=== PATIENT | male | born 1945 | race Caucasian/White ===

== ENCOUNTER 2016-11-21 11:57 | Inpatient (IN) | payer MEDICARE ==
[2016-11-21 13:42] LABS: Glucose,Whole Blood 113 mg/dL (75-99)
[2016-11-21] MEDS ORDERED: IPRATROPIUM 0.5 MG/2.5 ML NEBU INHALATION PRN (15:32)
[2016-11-21] MEDS: IPRATROPIUM 0.5 MG/2.5 ML NEBU INHALATION PRN ×2 (15:42→19:31)
[2016-11-21] MEDS: LEVALBUTEROL NEB (CONC) 1.25 MG/0.5 ML AMP INHALATION SCH ×5 (15:42→20:34)
[2016-11-21] MEDS: AZITHROMYCIN 500 MG TAB PO SCH (16:41)
[2016-11-21] MEDS: SODIUM CHLORIDE 0.9% 1,000 ML IV SCH (16:41)
[2016-11-21] MEDS: CHLORPHEN-HYDROcod 8-10mg/5ml 5 ML ORAL.SYRG PO SCH (16:42)
[2016-11-21] MEDS: BENZONATATE 100 MG CAP PO SCH ×2 (16:42→21:28)
[2016-11-21 16:55] LABS: ALT 58 U/L (21-72); AST 27 U/L (17-59); Alkaline Phosphatase 41 U/L (38-126); Anion Gap 14 mmol/L; Blood Urea Nitrogen 39 mg/dL (9-20); Calcium 9.2 mg/dL (8.4-10.2); Carbon Dioxide 23 mmol/L (22-30); Chloride 104 mmol/L (98-107); Glucose 269 mg/dL (74-99); Non-African American GFR(MDRD) >60 (>60 ml/min/1.73 sqM); Sodium 141 mmol/L (137-145); Total Bilirubin 0.4 mg/dL (0.2-1.3); Total Protein 5.8 g/dL (6.3-8.2)
[2016-11-21 16:57] LABS: Basophils # (A) 0.1 k/uL (0-0.2); Basophils % (A) 1 %; CHCM 31.6; Eosinophils % (A) 0 %; HCT 39.8 % (39.0-53.0); HDW 2.11; HGB 12.3 gm/dL (13.0-17.5); Luc # (Auto) 0.04; Luc % (Auto) 0; Lymphocytes # (A) 0.5 k/uL (1.0-4.8); Lymphocytes % (A) 4 %; MCH 29.4 pg (25.0-35.0); MCHC 30.8 g/dL (31.0-37.0); MCV 95.4 fL (80.0-100.0); Mean Platelet Volume 7.8; Monocytes # (A) 0.4 k/uL (0-1.0); Monocytes % (A) 3 %; Neutrophils # (A) 11.6 k/uL (1.3-7.7); Neutrophils % (A) 91 %; RBC 4.17 m/uL (4.30-5.90); RDW 12.9 % (11.5-15.5); WBC 12.8 k/uL (3.8-10.6); WBC (Perox) 13.62
[2016-11-21 17:06] LABS: Glucose,Whole Blood 236 mg/dL (75-99)
--- NOTE | 2016-11-21 17:11 | XR ---
EXAMINATION TYPE: XR chest 2V DATE OF EXAM: 11/21/2016 4:52 PM COMPARISON: 11/13/2016 HISTORY: Short of breath TECHNIQUE: Frontal and lateral views of the chest are obtained. FINDINGS: Heart and mediastinum are shifted to the right side. There is blunting of right costophren ic angle. There is patchy linear density in the right lung. There is a neurostimulator in the mid tho racic spine. Left lung is clear. There is no heart failure. Bony thorax is intact. IMPRESSION: There is patchy atelectasis and volume loss in the right hemithorax without significant change compared to last exam. Normal heart. No heart failure.
[2016-11-21] MEDS: INSULIN LISPRO (humaLOG) 300 UNIT/3 ML VIAL SQ SCH ×2 (17:37→21:51)
[2016-11-21] MEDS: methylPREDNISolone SOD SUCCI 125 MG/2 ML VIAL IV SCH (17:40)
[2016-11-21] MEDS ORDERED: TEMAZEPAM 30 MG CAP PO PRN (18:03)
[2016-11-21] MEDS: HYDROcodone/APAP 10-325MG 1 EACH TAB PO PRN ×2 (18:27→21:51)
[2016-11-21] MEDS: LORATADINE 10 MG TAB PO SCH (18:55)
[2016-11-21 19:00] LABS: Appearance,Urine Clear (Clear); Bilirubin,Urine Negative (Negative); Glucose,Urine (UA) 4+ (Negative); Ketones,Urine Negative (Negative); Leukocyte Esterase,Urine Negative (Negative); Nitrite,Urine Negative (Negative); Protein,Urine Trace (Negative); Specific Gravity,Urine 1.012 (1.001-1.035); UA Billing (MACRO vs. MICRO) CHEM; Urobilinogen,Urine <2.0 mg/dL (<2.0)
--- NOTE | 2016-11-21 19:17 | HP ---
DATE OF ADMISSION: Patient is a direct admit from Dr. Dee's office for COPD. Patient clinically appears to be in moderate respiratory distress at rest. Patient was having shortness of breath going on for about 3 weeks and patient was treated outpatient with azithromycin and oral steroids without any significant improvement. Patient was subsequently admitted because of his continued shortness of breath. No improvement in COPD. Patient is occasionally bringing up brownish phlegm. Chest x-ray did not show any clear-cut pneumonic process, but patient is being treated like pneumonia with ceftriaxone and azithromycin. There is some patchy atelectasis in right hemithorax. Patient denied any fevers at home. Patient does have some minimal leukocytosis of 12,800; can be from the systemic steroids. Denied any hemoptysis. Patient's FEV1 is around 47% of predicted, consistent with severe COPD, and patient has history of squamous cell lung carcinoma with radiation therapy in the past. REVIEW OF SYSTEMS: CONSTITUTIONAL: No fever, no malaise, no fatigue. HEENT: No recent visual problems or hearing problems. Denied any sore throat. CARDIOVASCULAR: No chest pain, orthopnea, PND, no palpitations, no syncope. PULMONARY: As described in HPI. GASTROINTESTINAL: No diarrhea, no nausea, no vomiting, no abdominal pain. Normoactive bowel sounds. NEUROLOGICAL: No headaches, no weakness, no numbness. HEMATOLOGICAL: Denies any bleeding or petechiae. GENITOURINARY: Denies any burning micturition, frequency, or urgency. MUSCULOSKELETAL/RHEUMATOLOGICAL: Denies any joint pain, swelling, or any muscle pain. ENDOCRINE: Denies any polyuria or polydipsia. The rest of the 14 point review of systems is negative. PAST MEDICAL HISTORY: 1. Lung cancer, as mentioned above, squamous cell. 2. COPD. 3. Diabetes mellitus. 4. Gastroesophageal reflux disease. 5. Hyperlipidemia. 6. Hypertension. 7. Osteoarthritis. 8. FEV1 47% of unpredicted. 9. Patient was born with a single kidney. 10. Patient had cardiac catheterization and stent placement surgery. 11. Tonsillectomy. 12. Bilateral knee replacement with pain stimulators in the buttock area. 13. Hernia repair. 14. Rotator cuff repair. 15. History of asbestos exposure. 16. Anxiety. 17. Depression. SOCIAL HISTORY: Former smoker; quit smoking years ago. Denied any alcohol abuse or any drug abuse. FAMILY HISTORY: Significant for cancer in family. HOME MEDICATIONS: 1. Alprazolam. 2. Albuterol. 3. Aspirin. 4. Azithromycin. 5. Docusate. 6. Ferrous sulfate. 7. Fexofenadine. 8. Fluticasone. 9. Solu-Medrol. 10. Lasix. 11. Hydrocodone/acetaminophen. 12. Lisinopril. 13. Metoclopramide. 14. Omeprazole. 15. Sertraline. 16. Simvastatin. 17. Temazepam. 18. Glipizide. PHYSICAL EXAMINATION: VITAL SIGNS: Temperature 97.0, pulse of 105, respiratory rate of 20. Blood pressure is 138/73. Saturating at 98% on 4 L of oxygen by nasal cannula. Patient is supposed to use 3 L; has been using 4 L because of his subjective shortness of breath. GENERAL: Patient appears to be clearly in moderate respiratory distress. Alert and oriented x3. HEENT: Pupils are round and equally reacting to light. EOMI. No scleral icterus. No conjunctival pallor. Normocephalic, atraumatic. No pharyngeal erythema. No thyromegaly. CARDIOVASCULAR: S1, S2 present. Tachycardic. No murmurs, rubs or gallops. PULMONARY: Significant expiratory wheezing with limited air entry into bilateral lung hinson. Rhonchorous breath sounds. ABDOMEN: Soft, nontender, nondistended, normoactive bowel sounds. No palpable organomegaly. MUSCULOSKELETAL: No joint swelling or deformity. EXTREMITIES: No cyanosis, clubbing, or pedal edema. NEUROLOGICAL: Gross neurological examination did not reveal any focal deficits. SKIN: No rashes. ASSESSMENT AND PLAN: 1. Acute on chronic obstructive pulmonary disease exacerbation. Patient does have severe COPD. Patient has acute on chronic hypercapnic respiratory failure secondary to COPD exacerbation. Continue with systemic steroids, inhalational treatments. Patient is being treated with ceftriaxone and azithromycin because of the severity of his symptoms, I believe, which will be continued at this point of time. Sputum cultures will be obtained. Blood cultures will be obtained. 2. Type 2 diabetes mellitus; uncontrolled blood sugars due to systemic steroids. Patient will be continued on sliding scale insulin. Patient will be resumed on his oral hypoglycemic agents as well. 3. Squamous cell carcinoma of the right lung which is in remission. 4. Diabetic peripheral neuropathy. 5. Hypertension. 6. Hyperlipidemia. 7. Chronic kidney disease, stage II, secondary to diabetic nephropathy. 8. Osteoarthritis. For above-mentioned chronic medical problems, I will go ahead and continue his home medications. Patient, although, appears to be in significant respiratory distress at rest in spite of 4 liters of oxygen, although saturations are 98% on 4 liters.
[2016-11-21] MEDS: FORMOTEROL FUMARATE 20 MCG/2 ML NEBU INHALATION SCH (19:31)
[2016-11-21] MEDS: BUDESONIDE 1 MG/2 ML NEBU INHALATION SCH (19:31)
[2016-11-21] MEDS ORDERED: NON-FORMULARY DRUG (Fluticasone/Salmeterol [Advair 500-50 Diskus] 1 PUFF) INHALATION SCH (20:00)
[2016-11-21 20:50] LABS: Glucose,Whole Blood 216 mg/dL (75-99)
[2016-11-21] MEDS ORDERED: LEVALBUTEROL NEB (CONC) 1.25 MG/0.5 ML AMP INHALATION PRN (21:27)
[2016-11-21] MEDS: DOCUSATE 100 MG CAP PO SCH (21:28)
[2016-11-21] MEDS: glipiZIDE 10 MG TAB PO SCH (21:51)
[2016-11-22] MEDS: methylPREDNISolone SOD SUCCI 125 MG/2 ML VIAL IV SCH ×4 (00:09→17:58)
[2016-11-22] MEDS: HYDROcodone/APAP 10-325MG 1 EACH TAB PO PRN ×5 (02:06→21:51)
[2016-11-22] MEDS: CHLORPHEN-HYDROcod 8-10mg/5ml 5 ML ORAL.SYRG PO SCH ×3 (04:48→21:51)
[2016-11-22] MEDS: SODIUM CHLORIDE 0.9% 1,000 ML IV SCH ×2 (06:11→17:59)
[2016-11-22] MEDS: FORMOTEROL FUMARATE 20 MCG/2 ML NEBU INHALATION SCH ×2 (07:35→19:00)
[2016-11-22] MEDS: BUDESONIDE 1 MG/2 ML NEBU INHALATION SCH ×2 (07:47→19:00)
[2016-11-22] MEDS: LEVALBUTEROL NEB (CONC) 1.25 MG/0.5 ML AMP INHALATION SCH ×4 (07:47→19:00)
[2016-11-22 07:50] LABS: Glucose,Whole Blood 153 mg/dL (75-99)
[2016-11-22 07:56] LABS: CH 29.8; HCT 37.3 % (39.0-53.0); HDW 2.08; MCH 29.9 pg (25.0-35.0); MCV 93.3 fL (80.0-100.0); Mean Platelet Volume 6.7; RDW 12.7 % (11.5-15.5)
[2016-11-22] MEDS: LORATADINE 10 MG TAB PO SCH (08:04)
[2016-11-22] MEDS: LISINOPRIL 20 MG TAB PO SCH (08:04)
[2016-11-22] MEDS: AZITHROMYCIN 500 MG TAB PO SCH (08:04)
[2016-11-22] MEDS: PANTOPRAZOLE 40 MG TABLET PO SCH (08:04)
[2016-11-22] MEDS: DOCUSATE 100 MG CAP PO SCH ×2 (08:04→20:57)
[2016-11-22] MEDS: BENZONATATE 100 MG CAP PO SCH ×3 (08:04→20:57)
[2016-11-22] MEDS: ATORVASTATIN 20 MG TAB PO SCH (08:04)
[2016-11-22] MEDS: SERTRALINE 50 MG TAB PO SCH (08:04)
[2016-11-22] MEDS: glipiZIDE 10 MG TAB PO SCH ×2 (08:04→20:57)
[2016-11-22] MEDS: ASPIRIN 81 MG CHEW PO SCH (08:04)
[2016-11-22] MEDS: ALPRAZolam 0.5 MG TAB PO PRN ×2 (08:04→17:58)
[2016-11-22] MEDS: INSULIN LISPRO (humaLOG) 300 UNIT/3 ML VIAL SQ SCH ×4 (08:06→22:02)
[2016-11-22 08:15] LABS: Anion Gap 13 mmol/L; Blood Urea Nitrogen 34 mg/dL (9-20); Carbon Dioxide 23 mmol/L (22-30); Chloride 106 mmol/L (98-107); Glucose 162 mg/dL (74-99); Non-African American GFR(MDRD) >60 (>60 ml/min/1.73 sqM); Potassium 4.8 mmol/L (3.5-5.1); Sodium 142 mmol/L (137-145)
[2016-11-22] MEDS: IPRATROPIUM 0.5 MG/2.5 ML NEBU INHALATION PRN ×3 (11:46→19:00)
[2016-11-22 12:06] LABS: Glucose,Whole Blood 258 mg/dL (75-99)
[2016-11-22 12:18] LABS: Hemoglobin A1C 7.1 % (4.2-6.1)
--- NOTE | 2016-11-22 14:24 | P.CNPUL ---
History of Present Illness Consult date: 11/22/16 Reason for consult: dyspnea, COPD History of present illness: 70-year-old male patient with advanced oxygen-dependent COPD was typically on 3 L of Oxymizer by nasal cannula. The patient has an FEV1 of 47% of predicted. The patient also has history of non-small cell lung cancer that was treated with radiation therapy to the chest. 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 A subsequent CAT scan of the chest from June 2015 had shown no evidence of any recurrence. Following that, the patient had another CAT scan of the chest on 10/21/2016 and there were stable postradiation changes in the right lung. There was also volume loss in the right lung. There was some limited interstitial fibrosis condition in the right lung. There is advanced and physical this changes bilaterally. No other abnormalities was noted. The patient is admitted currently for increased shortness of breath typical of an acute COPD exacerbation. He has increased cough chest tightness or wheezing. No chest pain. No fever or chills. No hemoptysis. No pleurisy. No swelling in the lower extremities. No change in mental status. His chest x-ray showing some patchy atelectatic changes and volume loss in the right hemithorax which is unchanged from previous chest x-rays and this is probably related to previous radiation therapy. The patient also has a neurostimulator in the mid thoracic spine and the left lung is essentially clear. Review of Systems Upon review of system was done positive findings are almost above history of present illness Past Medical History Past Medical History: Cancer, COPD, Diabetes Mellitus, GERD/Reflux, Hyperlipidemia, Hypertension, Musculoskeletal Disorder, Osteoarthritis (OA), Pneumonia Additional Past Medical History / Comment(s): Advanced oxygen-dependent COPD with an FEV1 of 47% of predicted, details discussed above, squamous cell carcinoma of the right lung status post chemo radiation therapy completed in February 2014, asbestos exposure, patient born with a single kidney, diabetes mellitus, hypertension, hyperlipidemia, degenerative arthritis, chronic back pain History of Any Multi-Drug Resistant Organisms: None Reported Past Surgical History: Adenoidectomy, Back Surgery, Heart Catheterization, Joint Replacement, Tonsillectomy Additional Past Surgical History / Comment(s): BILAT HIP REPLACEMENTS x4, PAIN STIMULATOR IMPLANT RT BUTTOCKS, LUNG BRONCHOSCOPIES/ BIOPSIES,, UMBILCAL HERNIA REPAIR.HIATAL HERNIA REPAR, RT ROTATOR CUFF REPAIR, EGD/COLONOSCOPY, LT INGUINAL HERNIA REPAIR, cataract removal with lens implants bilaterally, 2009?-normal (done at [facility]), lumbar laminectomy with fusion Past Anesthesia/Blood Transfusion Reactions: No Reported Reaction Additional Past Anesthesia/Blood Transfusion Reaction / Comment(s): NO TRANFUSIONS Past Psychological History: Anxiety, Depression Additional Psychological History / Comment(s): Patient states he takes xanax daily Smoking Status: Former smoker Past Alcohol Use History: None Reported Additional Past Alcohol Use History / Comment(s): [id number] Past Drug Use History: None Reported - Past Family History Brother(s) Family Medical History: Cancer Father Additional Family Medical History / Comment(s): AGER 85 SUICIDE(BLAMED SELF FOR WIFES ) Mother Additional Family Medical History / Comment(s): AT AGE 84 FRO MVA Medications and Allergies Home Medications Medication Instructions Recorded Confirmed Type Albuterol Sulfate [Ventolin HFA] 1 puff INHALATION RT-QID PRN 07/04/14 11/21/16 History Lisinopril 20 mg PO DAILY 07/04/14 11/21/16 History Omeprazole 40 mg PO DAILY 07/04/14 11/21/16 History Simvastatin 40 mg PO DAILY 07/04/14 11/21/16 History Aspirin 81 mg PO DAILY 08/09/14 11/21/16 History HYDROcodone/APAP 10-325MG [[place] 1 tab PO Q4H PRN 08/09/14 11/21/16 History 10-325] Fluticasone/Salmeterol [Advair 1 puff INHALATION RT-BID 09/07/14 11/21/16 History 500-50 Diskus] Temazepam 30 mg PO HS 09/07/14 11/21/16 History ALPRAZolam [Xanax] 0.5 mg PO Q8H PRN 05/14/15 11/21/16 History glipiZIDE [Glucotrol] 10 mg PO BID 05/14/15 11/21/16 History Ferrous Sulfate [Feosol] 325 mg PO DAILY 10/16/15 11/21/16 History Furosemide [Lasix] 20 mg PO DAILY 10/16/15 11/21/16 History Metoclopramide [Reglan] 10 mg PO BID 10/16/15 11/21/16 History Azithromycin [Zithromax] 250 mg PO MOWEFR 11/21/16 11/21/16 History Docusate [Colace] 100 mg PO BID 11/21/16 11/21/16 History Fexofenadine HCl [Gaye Allergy] 60 mg PO BID 11/21/16 11/21/16 History Sertraline [Zoloft] 50 mg PO DAILY 11/21/16 11/21/16 History Allergies Allergy/AdvReac Type Severity Reaction Status Date / Time adhesive Allergy Rash/Hives Verified 11/21/16 13:13 fish derived Allergy THROAT Verified 11/21/16 13:13 CLOSES, RASH, W/ FRESHWATER FISH Physical Exam Vitals: Vital Signs Temp Pulse Pulse Resp BP Pulse Ox 11/22/16 12:04 102 H 11/22/16 11:47 106 H 11/22/16 08:09 102 H 11/22/16 08:00 90 22 11/22/16 07:56 101 H 11/22/16 07:55 100 11/22/16 07:45 99 11/22/16 07:00 96.6 F L 90 21 105/56 95 11/21/16 23:00 96.9 F L 96 16 136/63 99 11/21/16 19:50 106 H 11/21/16 19:43 106 H 11/21/16 19:42 104 H 11/21/16 19:32 104 H 11/21/16 16:00 20 11/21/16 15:53 105 H 11/21/16 15:46 107 H 98 11/21/16 15:00 97 F L 102 H 16 138/73 96 Intake and Output 11/21/16 11/22/16 11/22/16 22:59 06:59 14:59 Other: Voiding Method Toilet # Voids 3 1 Head exam was generally normal. There was no scleral icterus or corneal arcus. Mucous membranes were moist.Neck was supple and without jugular venous distension, thyromegaly, or carotid bruits. Carotids were easily palpable bilaterally. There was no adenopathy. Lung sounds are diminished bilaterally along with that there is pronation of the expiratory phase of breathing and scattered expiratory wheezes throughout the lung hinson bilaterally.Cardiac exam revealed the PMI to be normally situated and sized. The rhythm was regular and no extrasystoles were noted during several minutes of auscultation. The first and second heart sounds were normal and physiologic splitting of the second heart sound was noted. There were no murmurs, rubs, clicks, or gallops.Abdominal exam revealed normal bowel sounds. The abdomen was soft, non- tender, and without masses, organomegaly, or appreciable enlargement of the abdominal aorta.Examination of the extremities revealed easily palpable radial, femoral and pedal pulses. There was no cyanosis, clubbing or edema. Results - Laboratory Findings CBC and BMP: 11/22/16 07:27 11/22/16 07:27 Abnormal lab findings: Abnormal Labs 11/21/16 11/21/16 11/21/16 12:38 16:16 16:16 WBC 12.8 H RBC 4.17 L Hgb 12.3 L Hct MCHC 30.8 L Neutrophils # 11.6 H Lymphocytes # 0.5 L BUN 39 H Glucose 269 H POC Glucose (mg/dL) 113 H Hemoglobin A1c Total Protein 5.8 L Urine Protein Urine Glucose (UA) 11/21/16 11/21/16 11/21/16 16:55 18:45 20:21 WBC RBC Hgb Hct MCHC Neutrophils # Lymphocytes # BUN Glucose POC Glucose (mg/dL) 236 H 216 H Hemoglobin A1c Total Protein Urine Protein Trace H Urine Glucose (UA) 4+ H 11/22/16 11/22/16 11/22/16 07:19 07:27 07:27 WBC 14.0 H RBC 4.00 L Hgb 12.0 L Hct 37.3 L MCHC Neutrophils # Lymphocytes # BUN Glucose POC Glucose (mg/dL) 153 H Hemoglobin A1c 7.1 H Total Protein Urine Protein Urine Glucose (UA) 11/22/16 11/22/16 07:27 11:55 WBC RBC Hgb Hct MCHC Neutrophils # Lymphocytes # BUN 34 H Glucose 162 H POC Glucose (mg/dL) 258 H Hemoglobin A1c Total Protein Urine Protein Urine Glucose (UA) - Diagnostic Findings Chest x-ray: image reviewed Assessment and Plan Plan: Assessment 1 acute COPD exacerbation with secondary shortness of breath 2 squamous cell carcinoma of the right lung status post chemoradiation therapy and the patient's disease is still in remission based on the most recent CAT scan of the chest that was done in September 2016 3 stage II chronic kidney disease 4 hypertension 5 hyperlipidemia 6 diabetes mellitus 7 peripheral neuropathy 8 chronic hypoxic respiratory failure and the patient has been on oxygen at 3 L per minute nasal cannula at baseline with an FEV1 of 47% 9 asbestos exposure 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 Agree on the current antibiotic coverage. Agree on the current bronchodilators. Put the patient on systemic steroids. Monitor the blood sugar and use insulin drip if needed for blood sugar control. We'll continue to follow. Most recent chest x-ray and a CAT scan of the chest was reviewed.
[2016-11-22 17:23] LABS: Glucose,Whole Blood 183 mg/dL (75-99)
[2016-11-22 21:04] LABS: Glucose,Whole Blood 291 mg/dL (75-99)
[2016-11-22] MEDS: ZOLPIDEM 5 MG TAB PO PRN (21:51)
[2016-11-22] MEDS ORDERED: INSULIN LISPRO (humaLOG) 300 UNIT/3 ML VIAL SQ ONE (22:03)
[2016-11-22] MEDS ORDERED: INSULIN DETEMIR 100 UNIT/ML 10 ML VIAL SQ ONE (22:04)
[2016-11-23] MEDS: methylPREDNISolone SOD SUCCI 125 MG/2 ML VIAL IV SCH ×5 (00:05→23:10)
[2016-11-23] MEDS: ALPRAZolam 0.5 MG TAB PO PRN ×2 (00:06→20:15)
[2016-11-23] MEDS: HYDROcodone/APAP 10-325MG 1 EACH TAB PO PRN ×4 (05:16→23:09)
[2016-11-23 07:26] LABS: Glucose,Whole Blood 189 mg/dL (75-99)
[2016-11-23] MEDS: SERTRALINE 50 MG TAB PO SCH (08:00)
[2016-11-23] MEDS: AZITHROMYCIN 500 MG TAB PO SCH (08:00)
[2016-11-23] MEDS: ASPIRIN 81 MG CHEW PO SCH (08:00)
[2016-11-23] MEDS: glipiZIDE 10 MG TAB PO SCH ×2 (08:00→20:15)
[2016-11-23] MEDS: LISINOPRIL 20 MG TAB PO SCH (08:00)
[2016-11-23] MEDS: BENZONATATE 100 MG CAP PO SCH ×3 (08:01→20:15)
[2016-11-23] MEDS: ATORVASTATIN 20 MG TAB PO SCH (08:01)
[2016-11-23] MEDS: INSULIN LISPRO (humaLOG) 300 UNIT/3 ML VIAL SQ SCH ×4 (08:01→21:37)
[2016-11-23] MEDS: PANTOPRAZOLE 40 MG TABLET PO SCH (08:01)
[2016-11-23] MEDS: LORATADINE 10 MG TAB PO SCH (08:01)
[2016-11-23] MEDS: CHLORPHEN-HYDROcod 8-10mg/5ml 5 ML ORAL.SYRG PO SCH ×2 (08:11→20:14)
--- NOTE | 2016-11-23 08:12 | PN ---
Patient is admitted for COPD exacerbation. Patient is feeling a little bit better I believe compared to yesterday, although patient states her shortness of breath is the same. REVIEW OF SYSTEMS: CARDIOVASCULAR: No chest pain, no orthopnea, no PND, no palpitations. PULMONARY: As described in HPI. GASTROINTESTINAL: No diarrhea, nausea or vomiting. No abdominal pain. Normoactive bowel sounds. NEUROLOGIC: No headaches, no weakness, no numbness. Medications were reviewed. PHYSICAL EXAMINATION: Temperature 97.6, pulse of 102, respiratory rate of 22, blood pressure is 105/56, saturating at 95% on 2-L of O2 nasal cannula. GENERAL: The patient is alert and oriented x3, not in any acute distress. Well developed, well nourished. HEENT: Pupils are round and equally reacting to light. EOMI. No scleral icterus. No conjunctival pallor. Normocephalic, atraumatic. No pharyngeal erythema. No thyromegaly. CARDIOVASCULAR: S1 and S2 present. No murmurs, rubs, or gallops. PULMONARY: Significant wheezing bilaterally. No crackles were appreciated. Wheezing appears to have improved compared to yesterday. ABDOMEN: Soft, nontender, nondistended, normoactive bowel sounds. No palpable organomegaly. MUSCULOSKELETAL: No joint swelling or deformity. EXTREMITIES: No cyanosis, clubbing, or pedal edema. NEUROLOGICAL: Gross neurological examination did not reveal any focal deficits. SKIN: No rashes. LABORATORY DATA: CBC and CMP abnormal for low WBC count of 14,000 and blood glucose is 162. ASSESSMENT AND PLAN: 1. Acute on chronic obstructive pulmonary disease exacerbation with acute on chronic hypercapnic respiratory failure secondary to chronic obstructive pulmonary disease exacerbation. 2. Tracheobronchitis. 3. Squamous cell carcinoma. 4. Diabetic peripheral neuropathy. 5. Hypertension. 6. Hyperlipidemia. 7. Chronic kidney disease stage II. 8. Osteoarthritis. Plan is to continue with systemic steroids and inhalational steroid treatment, continue with present regimen for diabetes mellitus and antibiotics.
[2016-11-23] MEDS: SODIUM CHLORIDE 0.9% 1,000 ML IV SCH ×5 (08:14→14:27)
[2016-11-23] MEDS: DOCUSATE 100 MG CAP PO SCH ×2 (08:16→21:37)
[2016-11-23] MEDS: BUDESONIDE 1 MG/2 ML NEBU INHALATION SCH ×2 (08:22→19:02)
[2016-11-23] MEDS: ALBUTEROL NEB (CONC) 2.5 MG/0.5 ML INHALATION SCH ×4 (08:22→19:02)
[2016-11-23] MEDS: FORMOTEROL FUMARATE 20 MCG/2 ML NEBU INHALATION SCH ×2 (08:23→19:02)
[2016-11-23 11:59] LABS: Glucose,Whole Blood 215 mg/dL (75-99)
[2016-11-23] MEDS ORDERED: IV VANCOMYCIN PER PHARMACY 1 EACH MISC MISCELLANE PRN (12:39)
[2016-11-23] MEDS ORDERED: SODIUM CHLORIDE 0.9% 1,000 ML IV ONE (12:53)
[2016-11-23] MEDS ORDERED: VANCOMYCIN 1,500 MG in SODIUM CHLORIDE 0.9% 250 ML IVPB ONE (13:00)
--- NOTE | 2016-11-23 14:39 | P.PN ---
Subjective 70-year-old male patient with advanced oxygen-dependent COPD was typically on 3 L of Oxymizer by nasal cannula. The patient has an FEV1 of 47% of predicted. The patient also has history of non-small cell lung cancer that was treated with radiation therapy to the chest. 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 A subsequent CAT scan of the chest from June 2015 had shown no evidence of any recurrence. Following that, the patient had another CAT scan of the chest on 10/21/2016 and there were stable postradiation changes in the right lung. There was also volume loss in the right lung. There was some limited interstitial fibrosis condition in the right lung. There is advanced and physical this changes bilaterally. No other abnormalities was noted. The patient is admitted currently for increased shortness of breath typical of an acute COPD exacerbation. He has increased cough chest tightness or wheezing. No chest pain. No fever or chills. No hemoptysis. No pleurisy. No swelling in the lower extremities. No change in mental status. His chest x-ray showing some patchy atelectatic changes and volume loss in the right hemithorax which is unchanged from previous chest x-rays and this is probably related to previous radiation therapy. The patient also has a neurostimulator in the mid thoracic spine and the left lung is essentially clear. On 11/23/2016, the patient essentially the same. He still having shortness of breath. COPD still on the ongoing exacerbation. Meanwhile, the patient was noted to have an elevated lactic acid level. Blood cultures showing gram- positive cocci and for that reason the patient was given a dose of vancomycin. He is also receiving a liter of IV fluid bolus. No hypotension. No fever. No significant leukocytosis. Blood cultures will be repeated. This can as well be a contaminant. Nevertheless, the elevation of lactic acid level is to be monitored and followed up. Objective - Vital Signs Vital signs: Vital Signs Temp 97 F L 11/23/16 07:00 Pulse 98 11/23/16 12:08 Resp 21 11/23/16 07:00 BP 129/66 11/23/16 07:00 Pulse Ox 95 11/23/16 07:00 Intake & Output 11/22/16 11/23/16 11/23/16 18:59 06:59 18:59 Other: # Voids 3 2 - Exam Head exam was generally normal. There was no scleral icterus or corneal arcus. Mucous membranes were moist.Neck was supple and without jugular venous distension, thyromegaly, or carotid bruits. Carotids were easily palpable bilaterally. There was no adenopathy. Lung sounds are diminished bilaterally along with that there is pronation of the expiratory phase of breathing and scattered expiratory wheezes throughout the lung hinson bilaterally.Cardiac exam revealed the PMI to be normally situated and sized. The rhythm was regular and no extrasystoles were noted during several minutes of auscultation. The first and second heart sounds were normal and physiologic splitting of the second heart sound was noted. There were no murmurs, rubs, clicks, or gallops.Abdominal exam revealed normal bowel sounds. The abdomen was soft, non- tender, and without masses, organomegaly, or appreciable enlargement of the abdominal aorta.Examination of the extremities revealed easily palpable radial, femoral and pedal pulses. There was no cyanosis, clubbing or edema. Results - Labs CBC & Chem 7: 11/22/16 07:27 11/22/16 07:27 Labs: Abnormal Lab Results - Last 24 Hours (Table) 11/22/16 11/22/16 11/23/16 Range/Units 17:11 21:03 06:51 POC Glucose (mg/dL) 183 H 291 H 189 H (75-99) mg/dL Plasma Lactic Acid Diego (0.7-2.0) mmol/L 11/23/16 11/23/16 Range/Units 10:33 11:48 POC Glucose (mg/dL) 215 H (75-99) mg/dL Plasma Lactic Acid Diego 5.2 H* (0.7-2.0) mmol/L Microbiology - Last 24 Hours (Table) 11/21/16 16:16 Blood Culture Gram Stain - Preliminary Blood 11/21/16 16:39 Blood Culture - Preliminary Blood 11/21/16 02:10 Gram Stain - Preliminary Sputum 11/21/16 18:45 Urine Culture - Final Urine,Clean Catch 11/21/16 16:16 Blood Culture - Preliminary Blood No Growth after 24 hours Assessment and Plan Plan: Assessment 1 acute COPD exacerbation with secondary shortness of breath 2 squamous cell carcinoma of the right lung status post chemoradiation therapy and the patient's disease is still in remission based on the most recent CAT scan of the chest that was done in September 2016 3 stage II chronic kidney disease 4 hypertension 5 hyperlipidemia 6 diabetes mellitus 7 peripheral neuropathy 8 chronic hypoxic respiratory failure and the patient has been on oxygen at 3 L per minute nasal cannula at baseline with an FEV1 of 47% 9 asbestos exposure 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 Questionable sepsis Plan repeat lactic acid level. IV fluids. Monitor the blood cultures. Continue the bronchodilators and systemic steroids. We'll continue to follow
[2016-11-23] MEDS: IPRATROPIUM 0.5 MG/2.5 ML NEBU INHALATION PRN (14:47)
[2016-11-23 17:32] LABS: Glucose,Whole Blood 223 mg/dL (75-99)
[2016-11-23] MEDS: IPRATROPIUM-ALBUTEROL 3 ML NEB INHALATION SCH (19:13)
[2016-11-23] MEDS: ZOLPIDEM 5 MG TAB PO PRN (20:15)
[2016-11-23 22:02] LABS: Glucose,Whole Blood 227 mg/dL (75-99)
[2016-11-24] MEDS: SODIUM CHLORIDE 0.9% 1,000 ML IV SCH ×4 (01:00→23:12)
[2016-11-24] MEDS: HYDROcodone/APAP 10-325MG 1 EACH TAB PO PRN ×5 (05:45→23:11)
[2016-11-24] MEDS: methylPREDNISolone SOD SUCCI 125 MG/2 ML VIAL IV SCH ×4 (05:49→23:12)
[2016-11-24] MEDS ORDERED: VANCOMYCIN 1,500 MG in SODIUM CHLORIDE 0.9% 250 ML IVPB SCH (06:00)
[2016-11-24 07:03] LABS: Glucose,Whole Blood 154 mg/dL (75-99)
[2016-11-24] MEDS: FORMOTEROL FUMARATE 20 MCG/2 ML NEBU INHALATION SCH ×2 (07:03→21:30)
[2016-11-24] MEDS: IPRATROPIUM-ALBUTEROL 3 ML NEB INHALATION SCH ×4 (07:03→21:30)
[2016-11-24] MEDS: BUDESONIDE 1 MG/2 ML NEBU INHALATION SCH ×2 (07:03→21:30)
[2016-11-24] MEDS: PANTOPRAZOLE 40 MG TABLET PO SCH (08:06)
[2016-11-24] MEDS: ASPIRIN 81 MG CHEW PO SCH (08:06)
[2016-11-24] MEDS: SERTRALINE 50 MG TAB PO SCH (08:06)
[2016-11-24] MEDS: LISINOPRIL 20 MG TAB PO SCH (08:06)
[2016-11-24] MEDS: BENZONATATE 100 MG CAP PO SCH ×3 (08:06→20:31)
[2016-11-24] MEDS: glipiZIDE 10 MG TAB PO SCH ×2 (08:06→20:31)
[2016-11-24] MEDS: ATORVASTATIN 20 MG TAB PO SCH (08:07)
[2016-11-24] MEDS: DOCUSATE 100 MG CAP PO SCH ×2 (08:07→20:31)
[2016-11-24] MEDS: INSULIN LISPRO (humaLOG) 300 UNIT/3 ML VIAL SQ SCH ×4 (08:07→20:38)
[2016-11-24] MEDS: LORATADINE 10 MG TAB PO SCH (08:07)
[2016-11-24] MEDS: AZITHROMYCIN 500 MG TAB PO SCH (08:07)
[2016-11-24 08:13] LABS: CH 29.3; CHCM 30.6; HCT 34.7 % (39.0-53.0); HDW 2.08; HGB 11.1 gm/dL (13.0-17.5); Hypochromasia Slight; MCH 30.8 pg (25.0-35.0); MCV 96.3 fL (80.0-100.0); Mean Platelet Volume 6.8; RDW 13.1 % (11.5-15.5); WBC 13.5 k/uL (3.8-10.6)
[2016-11-24] MEDS: ALPRAZolam 0.5 MG TAB PO PRN ×3 (08:20→20:32)
[2016-11-24] MEDS: CHLORPHEN-HYDROcod 8-10mg/5ml 5 ML ORAL.SYRG PO SCH ×2 (08:21→20:34)
--- NOTE | 2016-11-24 08:53 | XR ---
EXAMINATION TYPE: XR chest 2V DATE OF EXAM: 11/24/2016 8:35 AM COMPARISON: Chest x-ray November 21, 2016. HISTORY: COPD exacerbation, shortness of breath. TECHNIQUE: Frontal and lateral views of the chest are obtained. FINDINGS: There is chronic emphysematous change with right basilar and mid lung scarring. Right-sided volume loss with mediastinal shift is redemonstrated. There is patchy left basilar atelectasis. No n ew suspicious focal airspace opacity, pleural effusion, or pneumothorax is seen bilaterally. Cardiac silhouette size is stable and within normal limits without reflect thoracic aorta. Osseous structures are demineralized. Spinal stimulator mid thoracic spine is redemonstrated. IMPRESSION: Chronic emphysematous change with right sided scarring and volume loss, no new suspicious focal infiltrate is seen. No significant change from prior.
--- NOTE | 2016-11-24 09:36 | PN ---
The patient was admitted to the hospital for COPD exacerbation. Patient was found to have lactic acidosis, found to be septic with Gram-positive positive cocci. I am giving him 1-liter bolus of IV normal saline followed by 100 mL per hour and blood cultures for today and tomorrow will be obtained and patient has lactic acidosis of 5.8 consistent with severe sepsis and severe bacteremia. REVIEW OF SYSTEMS: CARDIOVASCULAR: No chest pain, no orthopnea, no PND, no palpitations. PULMONARY: No significant improvement. GASTROINTESTINAL: No diarrhea, nausea or vomiting. No abdominal pain. Normoactive bowel sounds. NEUROLOGIC: No headaches, no weakness, no numbness. Medications were reviewed and medication changes: The patient is started on IV vancomycin. PHYSICAL EXAMINATION: Temperature 97.0, pulse of 98, respiratory rate of 21, blood pressure is 120/66, saturating at 94% on 3 L O2 by nasal cannula. GENERAL: Patient is in moderate respiratory distress. ( ) Undressed and patient probably hyperventilating because of lactic acidosis. PHYSICAL EXAMINATION: GENERAL: The patient is alert and oriented x3, not in any acute distress. Well developed, well nourished. HEENT: Pupils are round and equally reacting to light. EOMI. No scleral icterus. No conjunctival pallor. Normocephalic, atraumatic. No pharyngeal erythema. No thyromegaly. CARDIOVASCULAR: S1 and S2 present. No murmurs, rubs, or gallops. PULMONARY: Wheezing did improve significantly in spite of which patient is still tachypneic, probably because of the above-mentioned reasons. ABDOMEN: Soft, nontender, nondistended, normoactive bowel sounds. No palpable organomegaly. MUSCULOSKELETAL: No joint swelling or deformity. EXTREMITIES: No cyanosis, clubbing, or pedal edema. NEUROLOGICAL: Gross neurological examination did not reveal any focal deficits. SKIN: No rashes. ASSESSMENT AND PLAN: 1. Acute on chronic obstructive pulmonary disease exacerbation with acute on chronic hypercapnic respiratory failure. 2. Severe sepsis, probably due to tracheobronchitis until we rule out staphylococcal infection, patient will be started on vancomycin as mentioned above. It can be pneumococcal tracheobronchitis versus early pneumonic process that is contributing to his symptoms. 3. History of squamous cell carcinoma in remission. 4. Diabetes mellitus and diabetic nephropathy. 5. Hypertension. 6. Hyperlipidemia. 7. 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 8. Osteoarthritis. PLAN: For the above mentioned chronic medical problems, I will go ahead and continue his medications, continue with systemic steroids, inhalational treatments. Dr. Fernandez is following the patient as well.
[2016-11-24 12:24] LABS: Glucose,Whole Blood 168 mg/dL (75-99)
--- NOTE | 2016-11-24 12:24 | P.PN ---
Subjective 70-year-old male patient with advanced oxygen-dependent COPD was typically on 3 L of Oxymizer by nasal cannula. The patient has an FEV1 of 47% of predicted. The patient also has history of non-small cell lung cancer that was treated with radiation therapy to the chest. 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 A subsequent CAT scan of the chest from June 2015 had shown no evidence of any recurrence. Following that, the patient had another CAT scan of the chest on 10/21/2016 and there were stable postradiation changes in the right lung. There was also volume loss in the right lung. There was some limited interstitial fibrosis condition in the right lung. There is advanced and physical this changes bilaterally. No other abnormalities was noted. The patient is admitted currently for increased shortness of breath typical of an acute COPD exacerbation. He has increased cough chest tightness or wheezing. No chest pain. No fever or chills. No hemoptysis. No pleurisy. No swelling in the lower extremities. No change in mental status. His chest x-ray showing some patchy atelectatic changes and volume loss in the right hemithorax which is unchanged from previous chest x-rays and this is probably related to previous radiation therapy. The patient also has a neurostimulator in the mid thoracic spine and the left lung is essentially clear. On 11/23/2016, the patient essentially the same. He still having shortness of breath. COPD still on the ongoing exacerbation. Meanwhile, the patient was noted to have an elevated lactic acid level. Blood cultures showing gram- positive cocci and for that reason the patient was given a dose of vancomycin. He is also receiving a liter of IV fluid bolus. No hypotension. No fever. No significant leukocytosis. Blood cultures will be repeated. This can as well be a contaminant. Nevertheless, the elevation of lactic acid level is to be monitored and followed up. On 11/24/2016, the patient is doing slightly better. His less short of breath compared to yesterday. Lactic acid levels are dropping and is down to 2.4. Patient was given a dose of vancomycin. The subsequent blood culture showed gram-negative is negative staph. The chest x-ray remains free of any pneumonia. His chronic emphysematous changes with right-sided scarring and volume loss. No suspicious pulmonary infiltrates seen. Objective - Vital Signs Vital signs: Vital Signs Temp 97.7 F 11/24/16 07:00 Pulse 96 11/24/16 11:26 Resp 18 11/24/16 07:00 BP 150/88 11/24/16 07:00 Pulse Ox 88 L 11/24/16 07:06 Intake & Output 11/23/16 11/24/16 11/24/16 18:59 06:59 18:59 Intake Total 440 200 Balance 440 200 Intake: Oral 440 200 Other: # Voids 3 2 # Bowel Movements 1 - Exam Head exam was generally normal. There was no scleral icterus or corneal arcus. Mucous membranes were moist.Neck was supple and without jugular venous distension, thyromegaly, or carotid bruits. Carotids were easily palpable bilaterally. There was no adenopathy. Lung sounds are diminished bilaterally along with that there is pronation of the expiratory phase of breathing and scattered expiratory wheezes throughout the lung hinson bilaterally.Cardiac exam revealed the PMI to be normally situated and sized. The rhythm was regular and no extrasystoles were noted during several minutes of auscultation. The first and second heart sounds were normal and physiologic splitting of the second heart sound was noted. There were no murmurs, rubs, clicks, or gallops.Abdominal exam revealed normal bowel sounds. The abdomen was soft, non- tender, and without masses, organomegaly, or appreciable enlargement of the abdominal aorta.Examination of the extremities revealed easily palpable radial, femoral and pedal pulses. There was no cyanosis, clubbing or edema. Results - Labs CBC & Chem 7: 11/24/16 07:41 11/22/16 07:27 Labs: Abnormal Lab Results - Last 24 Hours (Table) 11/23/16 11/23/16 11/23/16 Range/Units 14:45 17:23 18:48 WBC (3.8-10.6) k/uL RBC (4.30-5.90) m/uL Hgb (13.0-17.5) gm/dL Hct (39.0-53.0) % POC Glucose (mg/dL) 223 H (75-99) mg/dL Plasma Lactic Acid Diego 4.4 H* 3.0 H* (0.7-2.0) mmol/L 11/23/16 11/24/16 11/24/16 Range/Units 21:35 07:02 07:41 WBC 13.5 H (3.8-10.6) k/uL RBC 3.60 L (4.30-5.90) m/uL Hgb 11.1 L (13.0-17.5) gm/dL Hct 34.7 L (39.0-53.0) % POC Glucose (mg/dL) 227 H 154 H (75-99) mg/dL Plasma Lactic Acid Diego (0.7-2.0) mmol/L 11/24/16 Range/Units 07:41 WBC (3.8-10.6) k/uL RBC (4.30-5.90) m/uL Hgb (13.0-17.5) gm/dL Hct (39.0-53.0) % POC Glucose (mg/dL) (75-99) mg/dL Plasma Lactic Acid Diego 2.4 H* (0.7-2.0) mmol/L Microbiology - Last 24 Hours (Table) 11/21/16 02:10 Gram Stain - Final Sputum Sputum Culture - Final 11/21/16 16:16 Blood Culture Gram Stain - Preliminary Blood Blood Culture - Preliminary Coagulase Negative Staph 11/21/16 16:16 Blood Culture - Preliminary Blood No Growth after 48 hours 11/21/16 16:39 Blood Culture - Preliminary Blood Assessment and Plan Plan: Assessment 1 acute COPD exacerbation with secondary shortness of breath 2 squamous cell carcinoma of the right lung status post chemoradiation therapy and the patient's disease is still in remission based on the most recent CAT scan of the chest that was done in September 2016 3 stage II chronic kidney disease 4 hypertension 5 hyperlipidemia 6 diabetes mellitus 7 peripheral neuropathy 8 chronic hypoxic respiratory failure and the patient has been on oxygen at 3 L per minute nasal cannula at baseline with an FEV1 of 47% 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 Still unclear to me if visits where infection. We'll consult infectious disease. Meanwhile, the patient is still on vancomycin. 14 elevation and the lactic acid level, needs to be followed up. Questionable sepsis Plan Lactic acid levels are dropping. We'll consult infectious disease. We'll continue the rest of the treatment. Clinically slightly improved compared to yesterday.
--- NOTE | 2016-11-24 16:45 | PN ---
Patient is a 70-year-old gentleman with admitted with COPD exacerbation. Patient had gram-positive cocci coagulase-negative which is probably contamination in spite of ( ) being positive and repeat blood cultures are so far negative. Patient vancomycin was discontinued and patient lactic acid has come down to 2.4. We will continue IV fluids and repeat lactic acid tomorrow. Source of sepsis being severe tracheobronchitis probably versus pneumonia, which is probably in the early stages which we are not seeing it on the chest x-ray. Regarding COPD exacerbation, patient did not get worse or get better compared to yesterday, but significantly improved air entry and wheezing compared to admission. REVIEW OF SYSTEMS: REVIEW OF SYSTEMS: CARDIOVASCULAR: No chest pain, no orthopnea, no PND, no palpitations. PULMONARY: as described in HPI. GASTROINTESTINAL: No diarrhea, nausea or vomiting. No abdominal pain. Normoactive bowel sounds. NEUROLOGIC: No headaches, no weakness, no numbness. Medications are reviewed and medication changes as mentioned in the interval history. PHYSICAL EXAMINATION: Temperature 97.7, pulse 96, respiratory rate of 18, blood pressure is 150/88, saturating at 88% on 4 L O2 by nasal cannula. GENERAL: The patient is alert and oriented x3, not in any acute distress. Well developed, well nourished. HEENT: Pupils are round and equally reacting to light. EOMI. No scleral icterus. No conjunctival pallor. Normocephalic, atraumatic. No pharyngeal erythema. No thyromegaly. CARDIOVASCULAR: S1 and S2 present. No murmurs, rubs, or gallops. PULMONARY: Patient still has expiratory wheezing, which is significant but I believe which improved as compared to admission, but no significant improvement compared to yesterday. ABDOMEN: Soft, nontender, nondistended, normoactive bowel sounds. No palpable organomegaly. MUSCULOSKELETAL: No joint swelling or deformity. EXTREMITIES: No cyanosis, clubbing, or pedal edema. NEUROLOGICAL: Gross neurological examination did not reveal any focal deficits. SKIN: No rashes. ASSESSMENT AND PLAN: 1. Acute on chronic obstructive pulmonary disease exacerbation with acute on chronic hypercapnic respiratory failure. 2. Severe sepsis due to tracheobronchitis. 3. Coagulase and ( ) Staphylococcus in the blood, which appears to be mostly contamination. 4. Vancomycin was discontinued and diabetes mellitus and diabetic nephropathy. 5. Hypertension. 6. Hyperlipidemia. 7. 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 8. Osteoarthritis. PLAN: Continue with antibiotics. Continue systemic steroid and inhalation treatments. The patient has significant slow improvement.
[2016-11-24 17:18] LABS: Glucose,Whole Blood 169 mg/dL (75-99)
[2016-11-24] MEDS: ZOLPIDEM 5 MG TAB PO PRN (20:32)
[2016-11-24 21:06] LABS: Glucose,Whole Blood 196 mg/dL (75-99)
[2016-11-25] MEDS: HYDROcodone/APAP 10-325MG 1 EACH TAB PO PRN ×4 (05:34→19:56)
[2016-11-25] MEDS: methylPREDNISolone SOD SUCCI 125 MG/2 ML VIAL IV SCH ×4 (05:36→23:51)
--- NOTE | 2016-11-25 05:47 | CONS ---
DATE OF CONSULTATION: DATE OF SERVICE: 11/24/2016 REASON FOR CONSULTATION: 1. Positive blood culture. 2. Elevated lactic acid with a question of sepsis. HISTORY OF PRESENT ILLNESS: The patient is a 70-year-old male with a past medical history significant for lung cancer status post chemo and radiation therapy; also has history of end-stage COPD, who is on 3 L of O2 at home. Patient has been admitted to the hospital directly from Dr. Dee's office on 11/21/2016 where the patient presented with increasing shortness of breath The patient did have a chest tightness and he did have a cough, but not bringing up significant amount of sputum. The patient denies any hemoptysis. Patient denies having any pleuritic chest pain. No URI symptoms. No nausea. No vomiting. No high-grade fever or any swelling in the legs. Subsequently, the patient has been evaluated. He did have an x-ray which did not show any changes suspicious for pneumonia. The patient did have blood cultures obtained. He was started on Rocephin and azithromycin along with bronchodilator therapy and steroids. He did have blood cultures obtained which are showing gram positive cocci and he was started on vancomycin. The patient was noticed to have elevated lactic acid as high as 5. I was asked to see the patient for further recommendation regarding possible sepsis. The patient remains to be afebrile. His main symptom has been shortness of breath and chest tightness, but has slightly improved compared to yesterday. The patient denies any hemoptysis. No nausea, vomiting or any diarrhea. No significant abdominal pain or burning or frequency of urine. REVIEW OF SYSTEMS: CONSTITUTIONAL: Positive for weakness. No fever has been recorded. EYES: No complaint. ENT: No complaint. RESPIRATORY: As per HPI. CARDIOVASCULAR: No complaint. GENITOURINARY: No complaint. GASTROINTESTINAL: No complaint. MUSCULOSKELETAL: No complaint. INTEGUMENTARY: No complaint. PSYCHOLOGIC: No complaint. ENDOCRINE: No complaint. NEUROLOGIC: No complaint. PAST MEDICAL HISTORY: Hypertension, hyperlipidemia, osteoarthritis, pneumonia, history of lung cancer, diabetes mellitus, gastroesophageal reflux disease, and COPD. PAST SURGICAL HISTORY: Bilateral hip replacement, pain stimulator implant in right buttock. He did have bronchoscopy and biopsy, umbilical hernia repair, hiatal hernia repair and rotator cuff repair, EGD, colonoscopy, left inguinal hernia repair, cataract removal and implants, lumbar laminectomy and fusion. SOCIAL HISTORY: The patient did have history of smoking, smoked from 1968 to 1990. Denies any drinking or drug use. FAMILY HISTORY: father had history of cancer. Father at age of 84 from suicide. Mother at age of 84 from motor vehicle accident. ALLERGIES: No known drug allergies. Medications currently include the patient is on DuoNeb, [place], Xanax, aspirin, Lipitor, Zithromax, Tessalon Perles, Pulmicort, Rocephin, Colace, Glucotrol, Humalog, Zestril, Claritin, Solu-Medrol, Protonix, Zoloft, Ambien. On examination, blood pressure is 141/84 with a pulse of 104, temperature 97.1. He is 94% on 4 L of nasal cannula. General description is an elderly male, lying in bed in no distress. No tachypnea or accessory muscle of respiration use. HEENT examination shows slight pallor. No scleral icterus. Oral mucous membrane is dry. NECK: Trachea is central. There is no thyromegaly. LUNGS: Unlabored breathing with decreased breath sounds at the bases. No wheeze. HEART: S1, S2 regular rate and rhythm. ABDOMEN: Soft, no tenderness. No guarding or rigidity. EXTREMITIES: No edema of the feet. SKIN EXAMINATION: No rash or mass palpable. NEUROLOGICAL: The patient is awake, alert, oriented x3. Mood and affect normal. LABS: Hemoglobin is 11.1, white count is 13.5. BUN of 34, creatinine 0.96. Electrolytes have been normal. Blood cultures finalized with a coagulase negative staph. Sputum has been negative showing normal respiratory opal. DIAGNOSTIC IMPRESSION AND PLAN: 1. Patient admitted to hospital with difficulty in breathing which is more likely secondary to chronic obstructive pulmonary disease exacerbation with possible tracheobronchitis. Clinically no evidence of pneumonia. The patient is not running any fever, didnot have elevated white count. 2. Patient with positive blood culture, coagulase negative staph, likely skin contamination as the patient has no clinical disease to go along with it. Follow up blood cultures on 11/23 has been negative so far. 3. The patient with lactic acidosis could be related to his significant severe chronic obstructive pulmonary disease rather than any underlying sepsis. As mentioned earlier, the patient had no clear focus of infection, does not look toxic and not running any fever, slightly elevated white count more likely due to his steroids. PLAN: 1. There is no need for further vancomycin therapy, which has been appropriately discontinued. 2. Continue with the bronchodilator steroids per Pulmonary and short course of steroid for possible purulent tracheobronchitis. 3. Will continue to monitor patient closely and if the patient spikes any fever or any change in his clinical condition, to reculture him and adjust antibiotic further. Thank you for this consultation. We will follow this patient along with you. EUSEBIA
[2016-11-25] MEDS: BUDESONIDE 1 MG/2 ML NEBU INHALATION SCH ×2 (07:12→20:02)
[2016-11-25] MEDS: IPRATROPIUM-ALBUTEROL 3 ML NEB INHALATION SCH ×4 (07:12→20:02)
[2016-11-25] MEDS: FORMOTEROL FUMARATE 20 MCG/2 ML NEBU INHALATION SCH ×2 (07:12→20:02)
[2016-11-25] MEDS: ALPRAZolam 0.5 MG TAB PO PRN ×2 (07:38→16:34)
[2016-11-25] MEDS: ATORVASTATIN 20 MG TAB PO SCH (07:48)
[2016-11-25] MEDS: AZITHROMYCIN 500 MG TAB PO SCH (07:48)
[2016-11-25] MEDS: LISINOPRIL 20 MG TAB PO SCH (07:48)
[2016-11-25] MEDS: glipiZIDE 10 MG TAB PO SCH ×2 (07:48→20:04)
[2016-11-25] MEDS: BENZONATATE 100 MG CAP PO SCH ×3 (07:48→21:13)
[2016-11-25] MEDS: DOCUSATE 100 MG CAP PO SCH ×2 (07:48→20:04)
[2016-11-25] MEDS: LORATADINE 10 MG TAB PO SCH (07:48)
[2016-11-25] MEDS: PANTOPRAZOLE 40 MG TABLET PO SCH (07:48)
[2016-11-25] MEDS: SERTRALINE 50 MG TAB PO SCH (07:48)
[2016-11-25] MEDS: SODIUM CHLORIDE 0.9% 1,000 ML IV SCH ×2 (07:49→14:14)
[2016-11-25] MEDS: INSULIN LISPRO (humaLOG) 300 UNIT/3 ML VIAL SQ SCH ×4 (07:50→20:06)
[2016-11-25 07:52] LABS: Glucose,Whole Blood 151 mg/dL (75-99)
[2016-11-25] MEDS ORDERED: FUROSEMIDE 10 MG/ML 4 ML VIAL IV STA (09:41)
[2016-11-25] MEDS: ASPIRIN 81 MG CHEW PO SCH (09:47)
[2016-11-25] MEDS: CHLORPHEN-HYDROcod 8-10mg/5ml 5 ML ORAL.SYRG PO SCH ×2 (09:49→20:03)
--- NOTE | 2016-11-25 10:18 | XR ---
EXAMINATION TYPE: XR chest 1V portable DATE OF EXAM: 11/25/2016 10:12 AM CLINICAL HISTORY: Difficulty breathing progress study. TECHNIQUE: Single AP portable upright view of the chest is obtained. COMPARISON: Chest x-ray from one day earlier FINDINGS: There is chronic emphysematous change with right basilar and mid lung scarring. Right- geo ed volume loss with mediastinal shift is redemonstrated. There is worsening left basilar opacity cons istent with worsening atelectasis and/or infiltrate. No pneumothorax is seen bilaterally. Cardiac nato houette size is stable and within normal limits with atherosclerotic thoracic aorta. Osseous structur es are demineralized. Spinal stimulator mid thoracic spine is redemonstrated. IMPRESSION: Worsening left basilar atelectasis and/or infiltrate noted. Other findings stable.
[2016-11-25] MEDS ORDERED: RX INFO: IV CONTRAST WAS GIVEN 1 EACH MISC MISCELLANE PRN (10:31)
[2016-11-25 11:22] LABS: Glucose,Whole Blood 180 mg/dL (75-99)
[2016-11-25 11:31] LABS: Anion Gap 12 mmol/L; Blood Urea Nitrogen 34 mg/dL (9-20); Calcium 8.5 mg/dL (8.4-10.2); Carbon Dioxide 22 mmol/L (22-30); Chloride 111 mmol/L (98-107); Glucose 200 mg/dL (74-99); Non-African American GFR(MDRD) >60 (>60 ml/min/1.73 sqM); Potassium 4.1 mmol/L (3.5-5.1); Sodium 145 mmol/L (137-145)
[2016-11-25] MEDS ORDERED: NALOXONE 0.4 MG/ML 1 ML VIAL IV PRN (11:52)
[2016-11-25 12:00] LABS: Basophils % (A) 0 %; CH 29.5; CHCM 31.6; Eosinophils % (A) 0 %; HCT 36.2 % (39.0-53.0); HDW 2.14; HGB 11.8 gm/dL (13.0-17.5); Luc # (Auto) 0.04; Luc % (Auto) 0; Lymphocytes # (A) 0.3 k/uL (1.0-4.8); Lymphocytes % (A) 2 %; MCH 30.4 pg (25.0-35.0); MCHC 32.5 g/dL (31.0-37.0); MCV 93.6 fL (80.0-100.0); Mean Platelet Volume 6.8; Monocytes # (A) 0.4 k/uL (0-1.0); Monocytes % (A) 3 %; Neutrophils # (A) 12.2 k/uL (1.3-7.7); Neutrophils % (A) 94 %; RBC 3.86 m/uL (4.30-5.90); RDW 13.1 % (11.5-15.5); WBC 12.9 k/uL (3.8-10.6); WBC (Perox) 13.48
[2016-11-25 14:19] LABS: Glucose,Whole Blood 130 mg/dL (75-99)
--- NOTE | 2016-11-25 14:47 | P.PN ---
Subjective Principal diagnosis: Acute respiratory failure secondary to COPD and pneumonia involving the left lower lobe. 70-year-old male patient with advanced oxygen-dependent COPD was typically on 3 L of Oxymizer by nasal cannula. The patient has an FEV1 of 47% of predicted. The patient also has history of non-small cell lung cancer that was treated with radiation therapy to the chest. 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 A subsequent CAT scan of the chest from June 2015 had shown no evidence of any recurrence. Following that, the patient had another CAT scan of the chest on 10/21/2016 and there were stable postradiation changes in the right lung. There was also volume loss in the right lung. There was some limited interstitial fibrosis condition in the right lung. There is advanced and physical this changes bilaterally. No other abnormalities was noted. The patient is admitted currently for increased shortness of breath typical of an acute COPD exacerbation. He has increased cough chest tightness or wheezing. No chest pain. No fever or chills. No hemoptysis. No pleurisy. No swelling in the lower extremities. No change in mental status. His chest x-ray showing some patchy atelectatic changes and volume loss in the right hemithorax which is unchanged from previous chest x-rays and this is probably related to previous radiation therapy. The patient also has a neurostimulator in the mid thoracic spine and the left lung is essentially clear. On 11/23/2016, the patient essentially the same. He still having shortness of breath. COPD still on the ongoing exacerbation. Meanwhile, the patient was noted to have an elevated lactic acid level. Blood cultures showing gram- positive cocci and for that reason the patient was given a dose of vancomycin. He is also receiving a liter of IV fluid bolus. No hypotension. No fever. No significant leukocytosis. Blood cultures will be repeated. This can as well be a contaminant. Nevertheless, the elevation of lactic acid level is to be monitored and followed up. On 11/24/2016, the patient is doing slightly better. His less short of breath compared to yesterday. Lactic acid levels are dropping and is down to 2.4. Patient was given a dose of vancomycin. The subsequent blood culture showed gram-negative is negative staph. The chest x-ray remains free of any pneumonia. His chronic emphysematous changes with right-sided scarring and volume loss. No suspicious pulmonary infiltrates seen. On 11/25/2016, patient was noted to have worsening shortness of breath, and worsening chest x-ray with worsening left lower lobe pneumonia. Patient was noted to be in moderate respiratory distress, hence we have arranged for the patient to be transferred to the ICU and placed on BiPAP. In the meantime we have continued his antibiotics coverage as already started by Dr. Fernandez. Patient is also on proper bronchodilators. Blood cultures on admission showed contamination with coagulase-negative staph aureus. Follow-up blood cultures remained negative. Sputum is showing gram-positive cocci and few yeast. Final report is pending. Objective - Vital Signs Vital signs: Vital Signs Temp 99 F 11/25/16 11:30 Pulse 81 11/25/16 14:30 Resp 12 11/25/16 14:30 BP 147/71 11/25/16 14:30 Pulse Ox 95 11/25/16 14:30 Intake & Output 11/24/16 11/25/16 11/25/16 18:59 06:59 18:59 Intake Total 200 600 60 Output Total 400 2525 Balance -200 600 -2465 Weight 82.1 kg Intake: IV 60 Sodium Chloride 0.9% 1, 60 000 ml @ 20 mls/hr IV . Q24H [facility] Rx#:[id number] Oral 200 600 Output: Urine 400 2525 Other: # Voids 1 1 # Bowel Movements 0 0 - Exam Physical Exam: Revealed a 70-year-old white male in moderate respiratory distress HEENT:[Neck is supple.] [No neck masses.] [No thyromegaly.] [No JVD.] Chest: [Rhonchi and wheezes bilaterally, crackles at the left base.] Cardiac Exam: [Normal S1 and S2, no S3 gallop, no murmur.] Abdomen: [Soft, nontender, no megaly, no rebound, no guarding, normal bowel sounds.] Extremities: [No clubbing, no edema, no cyanosis.] Neurological Exam: [No focal neurologic deficit.] - Labs CBC & Chem 7: 11/25/16 11:03 11/25/16 11:03 Labs: Abnormal Lab Results - Last 24 Hours (Table) 11/24/16 11/24/16 11/25/16 Range/Units 17:16 20:40 07:42 WBC (3.8-10.6) k/uL RBC (4.30-5.90) m/uL Hgb (13.0-17.5) gm/dL Hct (39.0-53.0) % Neutrophils # (1.3-7.7) k/uL Lymphocytes # (1.0-4.8) k/uL Chloride (98-107) mmol/L BUN (9-20) mg/dL Glucose (74-99) mg/dL POC Glucose (mg/dL) 169 H 196 H 151 H (75-99) mg/dL 11/25/16 11/25/16 11/25/16 Range/Units 11:03 11:03 11:19 WBC 12.9 H (3.8-10.6) k/uL RBC 3.86 L (4.30-5.90) m/uL Hgb 11.8 L (13.0-17.5) gm/dL Hct 36.2 L (39.0-53.0) % Neutrophils # 12.2 H (1.3-7.7) k/uL Lymphocytes # 0.3 L (1.0-4.8) k/uL Chloride 111 H (98-107) mmol/L BUN 34 H (9-20) mg/dL Glucose 200 H (74-99) mg/dL POC Glucose (mg/dL) 180 H (75-99) mg/dL 11/25/16 Range/Units 14:16 WBC (3.8-10.6) k/uL RBC (4.30-5.90) m/uL Hgb (13.0-17.5) gm/dL Hct (39.0-53.0) % Neutrophils # (1.3-7.7) k/uL Lymphocytes # (1.0-4.8) k/uL Chloride (98-107) mmol/L BUN (9-20) mg/dL Glucose (74-99) mg/dL POC Glucose (mg/dL) 130 H (75-99) mg/dL Microbiology - Last 24 Hours (Table) 11/24/16 07:41 Blood Culture - Preliminary Blood No Growth after 24 hours 11/21/16 16:16 Blood Culture Gram Stain - Final Blood Blood Culture - Final Coagulase Negative Staph 11/24/16 16:45 Gram Stain - Preliminary Sputum 11/21/16 16:16 Blood Culture - Preliminary Blood No Growth after 72 hours 11/23/16 13:05 Blood Culture - Preliminary Blood No Growth after 24 hours 11/21/16 02:10 Gram Stain - Final Sputum Sputum Culture - Final Assessment and Plan Plan: Acute hypoxic respiratory failure secondary to severe COPD, history of lung cancer, and left lower lobe pneumonia. Hence the patient was transferred to the intensive care unit on BiPAP. 2 history of squamous cell carcinoma of the right lung, status post chemoradiation therapy in 2012. Patient remains in remission. Last CT of the chest was done in September of 2016. 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 Still unclear to me if visits where infection. We'll consult infectious disease. Meanwhile, the patient is still on vancomycin. 14 elevation and the lactic acid level, needs to be followed up. Questionable sepsis Plan Lactic acid levels are dropping. We'll consult infectious disease. We'll continue the rest of the treatment. Clinically slightly improved compared to yesterday. Continue BiPAP, continue bronchodilators, antibiotics, close monitoring in the ICU. Patient is not the most ideal candidate for bronchoscopy at this point. Patient will likely not tolerate the bronchoscopy unless he is on ventilatory support. Critical care time is 35 minutes. Time with Patient: Greater than 30
--- NOTE | 2016-11-25 16:46 | CT ---
CT CHEST FOR PULMONARY EMBOLISM. EXAMINATION TYPE: CT chest angio for PE DATE OF EXAM: 11/25/2016 4:32 PM INDICATION: Patient complains of shortness of breath with a history of Lung Cancer CT DLP: 332.2 mGycm, Automated exposure control for dose reduction was used. CONTRAST: Patient injected with 100 mL of Omnipaque 350. COMPARISON: Standard CT chest 10/21/2016 TECHNIQUE: CT of the chest is performed on a spiral scan at 2 mm thick sections. Study is performed with intravenous contrast timed for evaluation for pulmonary embolism. This will limit additional po rtions of the evaluation. 3-D MIP images reconstructed by the technologist are reviewed on the compu ter in the coronal and sagittal planes. FINDINGS: No persistent filling defects are evident to suggest an acute pulmonary embolism. No mediastinal or hilar adenopathy enlarged by CT criteria is evident. The ascending aorta diameter at the level of the main pulmonary artery is 3.2 cm. The main pulmonary artery diameter at the bifur cation is 2.9 cm. There is streak opacity extending from the right hilar region towards the periphery. This area appear s less prominent although there is some interval development of pleural effusion. Small bilateral ple ural effusions are present. A 2.0 x 1.1 cm soft tissue density is present on mediastinal windows adjacent to the left pleural eff usion. This was present in September 2016. Limited CT section through the upper abdomen are unremarkable. IMPRESSIONS: 1. Developing minimal bilateral pleural effusions. 2. Stable soft tissue density posterior left lung base. 3. Diminished streak opacity in the right infrahilar region. 4. No acute pulmonary embolism.
--- NOTE | 2016-11-25 16:53 | P.PN ---
Subjective Principal diagnosis: COPD exacerbation Date of service 11/25/2016. Progress note being dictated for Dr. Del Valle. Interval history: This is a 70-year-old gentleman admitted with acute COPD exacerbation, possible bacteremia and multiple other medical issues. Infectious disease consulted yesterday regarding positive blood cultures and elevated lactic acid, with recommendations noted. Initial blood cultures coagulase-negative staph aureus with repeat blood cultures currently negative . Preliminary Sputum culture growing gram-positive cocci. This morning developed worsening shortness of breath, hypoxic respiratory failure after getting up to bedside commode, placed on BiPAP. Chest CTA pending. Chest x-ray reporting worsening left lower lobe pneumonia. Anxious, but desats with minimal movement; will transfer to ICU. Denies chest pain, palpitations. Afebrile. Objective - Vital Signs Vital signs: Vital Signs Temp 99 F 11/25/16 11:30 Pulse 100 11/25/16 12:00 Resp 18 11/25/16 12:00 BP 123/70 11/25/16 12:00 Pulse Ox 92 L 11/25/16 12:00 Intake & Output 11/24/16 11/25/16 11/25/16 18:59 06:59 18:59 Intake Total 200 600 0 Output Total 400 425 Balance -200 600 -425 Intake: IV 0 Sodium Chloride 0.9% 1, 0 000 ml @ 20 mls/hr IV . Q24H [facility] Rx#:[id number] Oral 200 600 Output: Urine 400 425 Other: # Voids 1 1 # Bowel Movements 0 - Exam PHYSICAL EXAM: VITAL SIGNS: As above GENERAL: [Sitting up in bed, anxious, respiratory effort increased with assessory -muscle use] HEENT: [Pupils equal conjunctiva normal.] NECK: [Supple, no JVD] RESPIRATORY EFFORT:[Increased] LUNGS: [Left basilar crackles, rhonchi and expiratory wheezes scattered bilaterally] CARDIOVASCULAR regular S1 and S2, no edema GI: [Abdomen soft, nontender, positive bowel sounds.] PSYCH: [Alert and oriented -3, anxious appearing.] NEURO: No focal deficits - Labs CBC & Chem 7: 11/25/16 11:03 11/25/16 11:03 Labs: Abnormal Lab Results - Last 24 Hours (Table) 11/24/16 11/24/16 11/24/16 Range/Units 12:20 17:16 20:40 WBC (3.8-10.6) k/uL RBC (4.30-5.90) m/uL Hgb (13.0-17.5) gm/dL Hct (39.0-53.0) % Neutrophils # (1.3-7.7) k/uL Lymphocytes # (1.0-4.8) k/uL Chloride (98-107) mmol/L BUN (9-20) mg/dL Glucose (74-99) mg/dL POC Glucose (mg/dL) 168 H 169 H 196 H (75-99) mg/dL 11/25/16 11/25/16 11/25/16 Range/Units 07:42 11:03 11:03 WBC 12.9 H (3.8-10.6) k/uL RBC 3.86 L (4.30-5.90) m/uL Hgb 11.8 L (13.0-17.5) gm/dL Hct 36.2 L (39.0-53.0) % Neutrophils # 12.2 H (1.3-7.7) k/uL Lymphocytes # 0.3 L (1.0-4.8) k/uL Chloride 111 H (98-107) mmol/L BUN 34 H (9-20) mg/dL Glucose 200 H (74-99) mg/dL POC Glucose (mg/dL) 151 H (75-99) mg/dL 11/25/16 Range/Units 11:19 WBC (3.8-10.6) k/uL RBC (4.30-5.90) m/uL Hgb (13.0-17.5) gm/dL Hct (39.0-53.0) % Neutrophils # (1.3-7.7) k/uL Lymphocytes # (1.0-4.8) k/uL Chloride (98-107) mmol/L BUN (9-20) mg/dL Glucose (74-99) mg/dL POC Glucose (mg/dL) 180 H (75-99) mg/dL Microbiology - Last 24 Hours (Table) 11/24/16 07:41 Blood Culture - Preliminary Blood No Growth after 24 hours 11/21/16 16:16 Blood Culture Gram Stain - Final Blood Blood Culture - Final Coagulase Negative Staph 11/24/16 16:45 Gram Stain - Preliminary Sputum 11/21/16 16:16 Blood Culture - Preliminary Blood No Growth after 72 hours 11/23/16 13:05 Blood Culture - Preliminary Blood No Growth after 24 hours 11/21/16 02:10 Gram Stain - Final Sputum Sputum Culture - Final Assessment and Plan Plan: 1. 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 2. [Possible sepsis secondary to tracheobronchitis]. 3. [Possible bacteremia, initial blood culture coagulase-negative Staphylococcus , preliminary repeat negative]. 4. [Diabetes mellitus]. 5. [CKD, stage II, secondary to Diabetic nephropathy]. 6. [Hyperlipidemia]. 7. [Hypertension]. 8. Osteoarthritis 9. Asbestos exposure 10. Single kidney, congenital Plan: Continue on current medication regime, nebulized bronchodilators, steroids , antibiotics, monitoring and symptomatic treatment. Transfer to ICU. Follow closely with both infectious disease and pulmonary. Prognosis guarded. Further recommendations to follow. The impression and plan of care has been dictated as directed. : I performed a H&P examination of this patient and discussed the same with the dictator. I agree with the dictator's note. Any additional findings/opinions/ etc. will be noted.
[2016-11-25 17:34] LABS: Glucose,Whole Blood 135 mg/dL (75-99)
[2016-11-25 20:06] LABS: Glucose,Whole Blood 218 mg/dL (75-99)
[2016-11-25] MEDS: ZOLPIDEM 5 MG TAB PO PRN (21:13)
--- NOTE | 2016-11-25 23:28 | PN ---
DATE OF SERVICE: 11/25/2016 REASON FOR FOLLOWUP: 1. Lactic acidosis. 2. Positive blood culture. INTERVAL HISTORY: The patient is afebrile. He is still having shortness of breath with minimal exertion, for which the patient has been transferred to the ICU. The patient denies significant chest pain. He has a very mild cough. No abdominal pain or any diarrhea. On examination, blood pressure is 163/87 with a pulse of 89, temperature of 98. He is 91% on BiPAP. General description is an elderly male lying in bed in no distress. RESPIRATORY SYSTEM: Unlabored breathing with decreased intensity of breath sounds. No wheeze. HEART: S1, S2. Regular rate and rhythm. ABDOMEN: Soft. No tenderness. LABS: Hemoglobin is 11.8, white count of 12.9 with a BUN of 34, creatinine 1.04. DIAGNOSIC IMPRESSION AND PLAN: 1. Patient with a positive blood culture, more likely a skin contamination. Follow-up blood culture has been negative. 2. Patient with underlying chronic obstructive pulmonary disease exacerbation with tracheobronchitis, clinically suspicious for pneumonia. Continue with the short course of Rocephin along with steroids and bronchodilators per Pulmonary. Continue to monitor him closely. Continue supportive care. MTDD
[2016-11-26] MEDS: HYDROcodone/APAP 10-325MG 1 EACH TAB PO PRN ×5 (04:20→21:01)
[2016-11-26] MEDS: ALPRAZolam 0.5 MG TAB PO PRN ×3 (04:29→21:02)
[2016-11-26 04:45] LABS: Basophils % (A) 0 %; CH 29.8; CHCM 32.2; Eosinophils % (A) 0 %; HCT 34.7 % (39.0-53.0); HDW 2.14; HGB 11.3 gm/dL (13.0-17.5); Luc # (Auto) 0.04; Luc % (Auto) 0; Lymphocytes # (A) 0.3 k/uL (1.0-4.8); Lymphocytes % (A) 4 %; MCH 30.1 pg (25.0-35.0); MCHC 32.4 g/dL (31.0-37.0); MCV 92.6 fL (80.0-100.0); Mean Platelet Volume 6.7; Monocytes # (A) 0.4 k/uL (0-1.0); Monocytes % (A) 4 %; Neutrophils # (A) 8.6 k/uL (1.3-7.7); Neutrophils % (A) 92 %; RBC 3.74 m/uL (4.30-5.90); RDW 13.3 % (11.5-15.5); WBC 9.3 k/uL (3.8-10.6)
[2016-11-26 05:03] LABS: Anion Gap 7 mmol/L; Blood Urea Nitrogen 41 mg/dL (9-20); Calcium 8.5 mg/dL (8.4-10.2); Carbon Dioxide 25 mmol/L (22-30); Chloride 109 mmol/L (98-107); Glucose 131 mg/dL (74-99); Non-African American GFR(MDRD) >60 (>60 ml/min/1.73 sqM); Phosphorous 3.6 mg/dL (2.5-4.5); Potassium 3.9 mmol/L (3.5-5.1); Sodium 141 mmol/L (137-145)
[2016-11-26] MEDS ORDERED: Potassium Replacement Protocol 1 EACH MISC MISCELLANE PRN (05:30)
[2016-11-26] MEDS: methylPREDNISolone SOD SUCCI 125 MG/2 ML VIAL IV SCH ×3 (06:14→17:38)
[2016-11-26] MEDS: POTASSIUM CHLORIDE 10 MEQ, LIDOCAINE 2% INJ 10 MG in SODIUM CHLORIDE 0.9% 100 ML IV SCH ×2 (06:19→08:44)
[2016-11-26] MEDS: LISINOPRIL 20 MG TAB PO SCH (07:24)
[2016-11-26] MEDS: IPRATROPIUM-ALBUTEROL 3 ML NEB INHALATION SCH ×4 (07:26→19:56)
[2016-11-26] MEDS: BUDESONIDE 1 MG/2 ML NEBU INHALATION SCH ×2 (07:26→19:56)
[2016-11-26] MEDS: FORMOTEROL FUMARATE 20 MCG/2 ML NEBU INHALATION SCH ×2 (07:26→19:56)
--- NOTE | 2016-11-26 07:26 | XR ---
EXAMINATION TYPE: XR chest 1V DATE OF EXAM: 11/26/2016 6:34 AM COMPARISON: 11/25/2016 HISTORY: 70-year-old male difficulty in breathing, assess for CHF or pneumonia TECHNIQUE: Single frontal view of the chest is obtained. FINDINGS: Spinal stimulator array centered along the mid thoracic spinal canal. Heart remains upper limits of normal in size. Aorta within normal limits. Focal patchy right midlung opacity is unchanged with some additional tenting of the right hemidiaphragm with adjacent density. I mproving aeration at the left base. Pulmonary vasculature appear within normal limits. Relative upper lung lucencies suggest underlying emphysema. There is chronic volume loss in the right hemithorax. IMPRESSION: 1. COPD and chronic volume loss in the right hemithorax. Focal right midlung and right basilar opacit ies are unchanged and could relate to pleural parenchymal scarring or mild infiltrates. The former is favored. 2. Improving aeration at the left base. No overt CHF.
[2016-11-26 07:34] LABS: Glucose,Whole Blood 109 mg/dL (75-99)
[2016-11-26] MEDS: INSULIN LISPRO (humaLOG) 300 UNIT/3 ML VIAL SQ SCH ×6 (08:45→21:01)
[2016-11-26] MEDS: ATORVASTATIN 20 MG TAB PO SCH (08:45)
[2016-11-26] MEDS: ASPIRIN 81 MG CHEW PO SCH (08:45)
[2016-11-26] MEDS: BENZONATATE 100 MG CAP PO SCH ×3 (08:46→21:01)
[2016-11-26] MEDS: AZITHROMYCIN 500 MG TAB PO SCH (08:46)
[2016-11-26] MEDS: DOCUSATE 100 MG CAP PO SCH ×2 (08:47→20:59)
[2016-11-26] MEDS: CHLORPHEN-HYDROcod 8-10mg/5ml 5 ML ORAL.SYRG PO SCH ×2 (08:47→20:59)
[2016-11-26] MEDS: glipiZIDE 10 MG TAB PO SCH ×2 (08:47→21:00)
[2016-11-26] MEDS: SERTRALINE 50 MG TAB PO SCH (08:48)
[2016-11-26] MEDS: LORATADINE 10 MG TAB PO SCH (08:48)
[2016-11-26] MEDS ORDERED: PANTOPRAZOLE 40 MG/10 ML VIAL IV SCH (09:00)
[2016-11-26] MEDS: HEPARIN SODIUM,PORCINE 5,000 UNIT/ML 1 ML VIAL SQ SCH ×2 (10:10→21:00)
--- NOTE | 2016-11-26 11:18 | P.PN ---
Subjective Principal diagnosis: Acute respiratory failure secondary to COPD and pneumonia involving the left lower lobe and right midlung 70-year-old male patient with advanced oxygen-dependent COPD was typically on 3 L of Oxymizer by nasal cannula. The patient has an FEV1 of 47% of predicted. The patient also has history of non-small cell lung cancer that was treated with radiation therapy to the chest. 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 A subsequent CAT scan of the chest from June 2015 had shown no evidence of any recurrence. Following that, the patient had another CAT scan of the chest on 10/21/2016 and there were stable postradiation changes in the right lung. There was also volume loss in the right lung. There was some limited interstitial fibrosis condition in the right lung. There is advanced and physical this changes bilaterally. No other abnormalities was noted. The patient is admitted currently for increased shortness of breath typical of an acute COPD exacerbation. He has increased cough chest tightness or wheezing. No chest pain. No fever or chills. No hemoptysis. No pleurisy. No swelling in the lower extremities. No change in mental status. His chest x-ray showing some patchy atelectatic changes and volume loss in the right hemithorax which is unchanged from previous chest x-rays and this is probably related to previous radiation therapy. The patient also has a neurostimulator in the mid thoracic spine and the left lung is essentially clear. On 11/23/2016, the patient essentially the same. He still having shortness of breath. COPD still on the ongoing exacerbation. Meanwhile, the patient was noted to have an elevated lactic acid level. Blood cultures showing gram- positive cocci and for that reason the patient was given a dose of vancomycin. He is also receiving a liter of IV fluid bolus. No hypotension. No fever. No significant leukocytosis. Blood cultures will be repeated. This can as well be a contaminant. Nevertheless, the elevation of lactic acid level is to be monitored and followed up. On 11/24/2016, the patient is doing slightly better. His less short of breath compared to yesterday. Lactic acid levels are dropping and is down to 2.4. Patient was given a dose of vancomycin. The subsequent blood culture showed gram-negative is negative staph. The chest x-ray remains free of any pneumonia. His chronic emphysematous changes with right-sided scarring and volume loss. No suspicious pulmonary infiltrates seen. On 11/25/2016, patient was noted to have worsening shortness of breath, and worsening chest x-ray with worsening left lower lobe pneumonia. Patient was noted to be in moderate respiratory distress, hence we have arranged for the patient to be transferred to the ICU and placed on BiPAP. In the meantime we have continued his antibiotics coverage as already started by Dr. Fernandez. Patient is also on proper bronchodilators. Blood cultures on admission showed contamination with coagulase-negative staph aureus. Follow-up blood cultures remained negative. Sputum is showing gram-positive cocci and few yeast. Final report is pending. On 11/26/2016, patient seems to be doing better, breathing easier, he is now back on nasal cannula, responded well to bronchodilators, antibiotics, steroids , and I believe diuretics made a significant improvement in his overall pulmonary status. Patient did not require BiPAP overnight, and he seems to be much more comfortable today, he sounds much clearer today compared to yesterday. CT of the chest was reviewed labs were reviewed and his WBC count is 9.3 today. Electrolytes and basic metabolic profile are normal. Objective - Vital Signs Vital signs: Vital Signs Temp 97.5 F L 11/26/16 08:30 Pulse 87 11/26/16 10:00 Resp 19 11/26/16 10:00 BP 142/76 11/26/16 10:00 Pulse Ox 95 11/26/16 10:00 Intake & Output 11/25/16 11/26/16 11/26/16 18:59 06:59 18:59 Intake Total 370 260 240 Output Total 2900 1100 600 Balance -2530 -840 -360 Weight 82.1 kg 83.1 kg 83.1 kg Intake: IV 120 260 60 Sodium Chloride 0.9% 1, 120 260 60 000 ml @ 20 mls/hr IV . Q24H [facility] Rx#:[id number] Intake, IV Titration 50 100 Amount Potassium Chloride 10 meq 100 Lidocaine 2% Inj 10 mg In Sodium Chloride 0.9% 100 ml @ 100 mls/hr IV Q1HR [facility] Rx#:[id number] cefTRIAXone 1,000 mg In 50 Sodium Chloride 0.9% 50 ml @ 100 mls/hr IVPB Q24H [facility] Rx#:[id number] Oral 200 80 Output: Urine 2900 1100 600 Other: Voiding Method Urinal Urinal Urinal # Voids 1 1 # Bowel Movements 0 0 - Exam Physical Exam: Revealed a 70-year-old white male in no form of respiratory distress HEENT:[Neck is supple.] [No neck masses.] [No thyromegaly.] [No JVD.] Chest: [Diminished breath sound bilaterally, no rhonchi, no wheezes Cardiac Exam: [Normal S1 and S2, no S3 gallop, no murmur.] Abdomen: [Soft, nontender, no megaly, no rebound, no guarding, normal bowel sounds.] Extremities: [No clubbing, no edema, no cyanosis.] Neurological Exam: [No focal neurologic deficit.] - Labs CBC & Chem 7: 11/26/16 04:11 11/26/16 04:11 Labs: Abnormal Lab Results - Last 24 Hours (Table) 11/25/16 11/25/16 11/25/16 Range/Units 11:03 11:03 11:19 WBC 12.9 H (3.8-10.6) k/uL RBC 3.86 L (4.30-5.90) m/uL Hgb 11.8 L (13.0-17.5) gm/dL Hct 36.2 L (39.0-53.0) % Plt Count (150-450) k/uL Neutrophils # 12.2 H (1.3-7.7) k/uL Lymphocytes # 0.3 L (1.0-4.8) k/uL Chloride 111 H (98-107) mmol/L BUN 34 H (9-20) mg/dL Glucose 200 H (74-99) mg/dL POC Glucose (mg/dL) 180 H (75-99) mg/dL 11/25/16 11/25/16 11/25/16 Range/Units 14:16 17:31 20:04 WBC (3.8-10.6) k/uL RBC (4.30-5.90) m/uL Hgb (13.0-17.5) gm/dL Hct (39.0-53.0) % Plt Count (150-450) k/uL Neutrophils # (1.3-7.7) k/uL Lymphocytes # (1.0-4.8) k/uL Chloride (98-107) mmol/L BUN (9-20) mg/dL Glucose (74-99) mg/dL POC Glucose (mg/dL) 130 H 135 H 218 H (75-99) mg/dL 11/26/16 11/26/16 11/26/16 Range/Units 04:11 04:11 07:31 WBC (3.8-10.6) k/uL RBC 3.74 L (4.30-5.90) m/uL Hgb 11.3 L (13.0-17.5) gm/dL Hct 34.7 L (39.0-53.0) % Plt Count 137 L (150-450) k/uL Neutrophils # 8.6 H (1.3-7.7) k/uL Lymphocytes # 0.3 L (1.0-4.8) k/uL Chloride 109 H (98-107) mmol/L BUN 41 H (9-20) mg/dL Glucose 131 H (74-99) mg/dL POC Glucose (mg/dL) 109 H (75-99) mg/dL Microbiology - Last 24 Hours (Table) 11/24/16 07:41 Blood Culture - Preliminary Blood No Growth after 48 hours 11/24/16 16:45 Gram Stain - Preliminary Sputum Sputum Culture - Preliminary 11/21/16 16:16 Blood Culture - Preliminary Blood No Growth after 96 hours 11/23/16 13:05 Blood Culture - Preliminary Blood No Growth after 48 hours 11/21/16 16:16 Blood Culture Gram Stain - Final Blood Blood Culture - Final Coagulase Negative Staph Assessment and Plan Plan: Acute hypoxic respiratory failure secondary to severe COPD, history of lung cancer, and left lower lobe pneumonia, possible right midlung pneumonia or postinflammatory changes in the right midlung area could also be related to previous radiation to the right midlung. Patient is improving and feels much better on 11/26/2016. 2 history of squamous cell carcinoma of the right lung, status post chemoradiation therapy in 2012. Patient remains in remission. Last CT of the chest was done in September of 2016. 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 Questionable sepsis Plan Continue BiPAP as needed, continue bronchodilators, antibiotics, diuretics, close monitoring in the ICU for the next 24 hours. Time with Patient: Less than 30
[2016-11-26 12:04] LABS: Glucose,Whole Blood 277 mg/dL (75-99)
[2016-11-26] MEDS: INSULIN GLARGINE 100 UNIT/ML 10 ML VIAL SQ SCH (12:29)
[2016-11-26] MEDS ORDERED: INSULIN LISPRO (humaLOG) 300 UNIT/3 ML VIAL SQ ONE (12:30)
[2016-11-26 17:32] LABS: Glucose,Whole Blood 183 mg/dL (75-99)
--- NOTE | 2016-11-26 18:07 | P.PN ---
Subjective Principal diagnosis: COPD exacerbation Date of service 11/26/2016. Progress note being dictated for Dr. Del Valle. Interval history: This is a 70-year-old gentleman admitted with acute COPD exacerbation, possible bacteremia and multiple other medical issues. Yesterday transferred to ICU secondary to acute hypoxic respiratory failure requiring BiPAP. Maintained on nebulized bronchodilators, antibiotics, steroids with significant improvement in breathing. Less wheezing. Patient had uneventful night, did not require BiPAP, currently maintaining O2 sats mid 90s on 5 L nasal cannula. Chest x-ray noted with improving aeration of left base, no overt CHF, right midlung, right basilar opacity's unchanged. Denies chest pain , palpitations. Good diet intake, denies nausea or vomiting. Blood sugars elevated, currently 277. Preliminary cultures in progress as listed below. Objective - Vital Signs Vital signs: Vital Signs Temp 97.7 F 11/26/16 17:30 Pulse 96 11/26/16 17:30 Resp 21 11/26/16 17:30 BP 138/79 11/26/16 17:30 Pulse Ox 95 11/26/16 17:30 Intake & Output 11/25/16 11/26/16 11/26/16 18:59 06:59 18:59 Intake Total 370 260 840 Output Total 2900 1100 1700 Balance -2530 -840 -860 Weight 82.1 kg 83.1 kg 83.1 kg Intake: IV 120 260 200 Sodium Chloride 0.9% 1, 120 260 200 000 ml @ 20 mls/hr IV . Q24H ALO Rx#:[id number] Intake, IV Titration 50 200 Amount Potassium Chloride 10 meq 100 Lidocaine 2% Inj 10 mg In Sodium Chloride 0.9% 100 ml @ 100 mls/hr IV Q1HR ALO Rx#:[id number] cefTRIAXone 1,000 mg In 50 100 Sodium Chloride 0.9% 50 ml @ 100 mls/hr IVPB Q24H ALO Rx#:[id number] Oral 200 400 Tube Feeding 40 Output: Urine 2900 1100 1700 Other: Voiding Method Urinal Urinal Urinal # Voids 1 1 # Bowel Movements 0 0 1 - Exam PHYSICAL EXAM: VITAL SIGNS: As above GENERAL: [Sitting up in bed, no acute distress HEENT: [Pupils equal conjunctiva normal.] NECK: [Supple, no JVD] RESPIRATORY EFFORT:[Normal LUNGS: Diminished, no rhonchi, improved wheezing-occasional fine expiratory CARDIOVASCULAR regular S1 and S2, no edema GI: [Abdomen soft, nontender, positive bowel sounds.] PSYCH: [Alert and oriented -3, mood and affect normal] NEURO: No focal deficits Microbiology 11/23/16 13:05 Blood Blood Culture - Preliminary No Growth after 72 hours 11/24/16 07:41 Blood Blood Culture - Preliminary No Growth after 48 hours 11/24/16 16:45 Sputum Gram Stain - Preliminary 11/24/16 16:45 Sputum Sputum Culture - Preliminary 11/21/16 16:16 Blood Blood Culture - Preliminary No Growth after 96 hours 11/21/16 16:16 Blood Blood Culture Gram Stain - Final 11/21/16 16:16 Blood Blood Culture - Final Coagulase Negative Staph 11/21/16 02:10 Sputum Gram Stain - Final 11/21/16 02:10 Sputum Sputum Culture - Final 11/21/16 16:39 Blood Blood Culture - Preliminary 11/21/16 18:45 Urine,Clean Catch Urine Culture - Final - Labs CBC & Chem 7: 11/26/16 04:11 11/26/16 04:11 Labs: Abnormal Lab Results - Last 24 Hours (Table) 11/25/16 11/26/16 11/26/16 Range/Units 20:04 04:11 04:11 RBC 3.74 L (4.30-5.90) m/uL Hgb 11.3 L (13.0-17.5) gm/dL Hct 34.7 L (39.0-53.0) % Plt Count 137 L (150-450) k/uL Neutrophils # 8.6 H (1.3-7.7) k/uL Lymphocytes # 0.3 L (1.0-4.8) k/uL Chloride 109 H (98-107) mmol/L BUN 41 H (9-20) mg/dL Glucose 131 H (74-99) mg/dL POC Glucose (mg/dL) 218 H (75-99) mg/dL 11/26/16 11/26/16 11/26/16 Range/Units 07:31 12:03 17:29 RBC (4.30-5.90) m/uL Hgb (13.0-17.5) gm/dL Hct (39.0-53.0) % Plt Count (150-450) k/uL Neutrophils # (1.3-7.7) k/uL Lymphocytes # (1.0-4.8) k/uL Chloride (98-107) mmol/L BUN (9-20) mg/dL Glucose (74-99) mg/dL POC Glucose (mg/dL) 109 H 277 H 183 H (75-99) mg/dL Microbiology - Last 24 Hours (Table) 11/23/16 13:05 Blood Culture - Preliminary Blood No Growth after 72 hours 11/24/16 07:41 Blood Culture - Preliminary Blood No Growth after 48 hours 11/24/16 16:45 Gram Stain - Preliminary Sputum Sputum Culture - Preliminary 11/21/16 16:16 Blood Culture - Preliminary Blood No Growth after 96 hours Assessment and Plan Plan: 1. 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 2. [Possible sepsis secondary to tracheobronchitis]. Lactic acid normalized. 3. [Possible bacteremia, initial blood culture coagulase-negative Staphylococcus , preliminary repeat negative]. 4. [Diabetes mellitus, hemoglobin A1c 7.1]. 5. [CKD, stage II, secondary to Diabetic nephropathy]. 6. [Hyperlipidemia]. 7. [Hypertension]. 8. Osteoarthritis 9. Asbestos exposure 10. Single kidney, congenital Plan: Continue on current medication regime, nebulized bronchodilators, steroids , antibiotics, monitoring and symptomatic treatment. Lantus insulin, pre-meal insulin added to med regime. Close monitoring of Accu-Cheks, as patient on IV steroids. If no improvement may require insulin drip. Follow closely with both infectious disease and pulmonary. Prognosis guarded. Further recommendations to follow. The impression and plan of care has been dictated as directed. .: I performed a H&P examination of this patient and discussed the same with the dictator. I agree with the dictator's note. Any additional findings/opinions/ etc. will be noted.
[2016-11-26 20:58] LABS: Glucose,Whole Blood 191 mg/dL (75-99)
[2016-11-26] MEDS: SODIUM CHLORIDE 0.9% 1,000 ML IV SCH (20:59)
[2016-11-26] MEDS: ZOLPIDEM 5 MG TAB PO PRN (21:01)
[2016-11-27] MEDS: methylPREDNISolone SOD SUCCI 125 MG/2 ML VIAL IV SCH ×5 (00:26→23:54)
[2016-11-27] MEDS: HYDROcodone/APAP 10-325MG 1 EACH TAB PO PRN ×5 (00:27→21:19)
[2016-11-27 05:34] LABS: Basophils # (A) 0.1 k/uL (0-0.2); Basophils % (A) 1 %; CH 29.9; CHCM 32.1; Eosinophils % (A) 0 %; HCT 36.8 % (39.0-53.0); HDW 2.22; HGB 11.8 gm/dL (13.0-17.5); Luc # (Auto) 0.05; Luc % (Auto) 1; Lymphocytes # (A) 0.3 k/uL (1.0-4.8); Lymphocytes % (A) 3 %; MCH 29.9 pg (25.0-35.0); MCV 93.4 fL (80.0-100.0); Mean Platelet Volume 7.9; Monocytes # (A) 0.6 k/uL (0-1.0); Monocytes % (A) 6 %; Neutrophils # (A) 9.1 k/uL (1.3-7.7); Neutrophils % (A) 90 %; RBC 3.94 m/uL (4.30-5.90); RDW 13.4 % (11.5-15.5); WBC 10.1 k/uL (3.8-10.6); WBC (Perox) 11.24
[2016-11-27 06:04] LABS: Anion Gap 7 mmol/L; Blood Urea Nitrogen 41 mg/dL (9-20); Calcium 8.5 mg/dL (8.4-10.2); Carbon Dioxide 27 mmol/L (22-30); Chloride 108 mmol/L (98-107); Glucose 90 mg/dL (74-99); Non-African American GFR(MDRD) >60 (>60 ml/min/1.73 sqM); Phosphorous 3.4 mg/dL (2.5-4.5); Potassium 4.1 mmol/L (3.5-5.1); Sodium 142 mmol/L (137-145)
--- NOTE | 2016-11-27 07:02 | XR ---
EXAMINATION TYPE: XR chest 1V DATE OF EXAM: 11/27/2016 6:41 AM CLINICAL HISTORY: Difficulty breathing progress study. TECHNIQUE: Single AP portable upright view of the chest is obtained. COMPARISON: Chest x-ray from one day earlier FINDINGS: There is background of chronic emphysematous change with right-sided volume loss and right midlung and basilar scarring and/or atelectasis all redemonstrated. No new suspicious focal air spac e opacity, pleural effusion, or pneumothorax is seen bilaterally. Cardiac silhouette size is stable a nd within normal limits. Osseous structures are demineralized. Underlying scoliosis is present. Spina l stimulator device overlies the lower thoracic spine. IMPRESSION: Overall stable findings, chronic emphysematous change with right-sided scarring and vol ume loss, no new acute pulmonary process clearly seen.
[2016-11-27] MEDS ORDERED: PANTOPRAZOLE SODIUM 40 MG GRANULE PKT PO SCH (07:30)
[2016-11-27 07:55] LABS: Glucose,Whole Blood 21 mg/dL (75-99)
[2016-11-27] MEDS ORDERED: DEXTROSE 50%-WATER 50 ML SYRINGE IVP ONE ×3 (07:57→12:49)
[2016-11-27 07:58] LABS: Glucose,Whole Blood 20 mg/dL (75-99)
[2016-11-27] MEDS: INSULIN LISPRO (humaLOG) 300 UNIT/3 ML VIAL SQ SCH ×6 (08:08→21:18)
[2016-11-27] MEDS: ATORVASTATIN 20 MG TAB PO SCH (08:18)
[2016-11-27 08:19] LABS: Glucose,Whole Blood 99 mg/dL (75-99)
[2016-11-27] MEDS: ASPIRIN 81 MG CHEW PO SCH (08:19)
--- NOTE | 2016-11-27 08:22 | PN ---
DATE OF SERVICE: 11/26/2016 Reason for followup is positive blood culture and tracheobronchitis and question of pneumonia. INTERVAL HISTORY: The patient has been transferred to the ICU. The patient did not tolerate the BiPAP. Overall, he is doing well on nasal cannula oxygen. Patient denies having any chest pain. His breathing has slightly improved. He has some mild nausea, no abdominal pain or any diarrhea. On examination, blood pressure is 185/82 with a pulse of 79, temperature of 98, he is 95% on 4 L nasal cannula. General description is an elderly male, lying in bed in no distress. RESPIRATORY SYSTEM: Unlabored breathing with decreased breath sounds. HEART: S1, S2. Regular rate and rhythm. ABDOMEN: Soft, no tenderness. LABS: Hemoglobin 11.3, white count of 9.3 with a BUN of 41, creatinine is 0.90. All the blood cultures have been negative. Sputum currently pending. Did have CT angiogram that did not show any PE and no significant consolidation. DIAGNOSTIC IMPRESSION AND PLAN: 1. Patient with shortness of breath, chronic obstructive pulmonary disease and possibly pulmonary embolus. Clinically, doubt significant pneumonia. He is not running any fever and culture was negative. Keep the patient on steroids and a short course of antibiotics. 2. Positive blood culture more likely a skin contamination. No need for further workup for this. [facility]
[2016-11-27] MEDS: BENZONATATE 100 MG CAP PO SCH ×3 (08:29→22:34)
[2016-11-27] MEDS: DOCUSATE 100 MG CAP PO SCH ×2 (08:29→21:18)
[2016-11-27] MEDS: AZITHROMYCIN 500 MG TAB PO SCH (08:29)
[2016-11-27] MEDS: SERTRALINE 50 MG TAB PO SCH (08:32)
[2016-11-27] MEDS: ALPRAZolam 0.5 MG TAB PO PRN ×3 (08:32→23:53)
[2016-11-27] MEDS: FORMOTEROL FUMARATE 20 MCG/2 ML NEBU INHALATION SCH ×2 (08:33→18:54)
[2016-11-27] MEDS: BUDESONIDE 1 MG/2 ML NEBU INHALATION SCH ×2 (08:33→18:54)
[2016-11-27] MEDS: IPRATROPIUM-ALBUTEROL 3 ML NEB INHALATION SCH ×4 (08:34→18:54)
[2016-11-27] MEDS: LISINOPRIL 20 MG TAB PO SCH (08:36)
[2016-11-27] MEDS: HEPARIN SODIUM,PORCINE 5,000 UNIT/ML 1 ML VIAL SQ SCH ×2 (08:36→21:18)
[2016-11-27] MEDS: CHLORPHEN-HYDROcod 8-10mg/5ml 5 ML ORAL.SYRG PO SCH ×2 (08:36→21:18)
[2016-11-27] MEDS: LORATADINE 10 MG TAB PO SCH (08:36)
[2016-11-27] MEDS: glipiZIDE 10 MG TAB PO SCH (08:51)
[2016-11-27] MEDS: INSULIN GLARGINE 100 UNIT/ML 10 ML VIAL SQ SCH (09:04)
[2016-11-27] MEDS ORDERED: glipiZIDE 5 MG TAB PO SCH (10:05)
[2016-11-27 11:34] LABS: Glucose,Whole Blood 28 mg/dL (75-99)
[2016-11-27 11:34] LABS: Glucose,Whole Blood 30 mg/dL (75-99)
[2016-11-27] MEDS: FUROSEMIDE 20 MG TAB PO SCH (11:43)
[2016-11-27] MEDS: ITRACONAZOLE 100 MG CAP PO SCH (11:44)
[2016-11-27 11:52] LABS: Glucose,Whole Blood 103 mg/dL (75-99)
[2016-11-27 12:49] LABS: Glucose,Whole Blood 38 mg/dL (75-99)
[2016-11-27 13:08] LABS: Glucose,Whole Blood 108 mg/dL (75-99)
[2016-11-27] MEDS ORDERED: DEXTROSE 5% IN WATER 1,000 ML IV SCH (13:15)
[2016-11-27] MEDS: SODIUM CHLORIDE 0.9% 1,000 ML IV SCH (13:43)
--- NOTE | 2016-11-27 14:05 | P.PN ---
Subjective Principal diagnosis: Acute respiratory failure secondary to COPD and pneumonia involving the left lower lobe and right midlung 70-year-old male patient with advanced oxygen-dependent COPD was typically on 3 L of Oxymizer by nasal cannula. The patient has an FEV1 of 47% of predicted. The patient also has history of non-small cell lung cancer that was treated with radiation therapy to the chest. 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 A subsequent CAT scan of the chest from June 2015 had shown no evidence of any recurrence. Following that, the patient had another CAT scan of the chest on 10/21/2016 and there were stable postradiation changes in the right lung. There was also volume loss in the right lung. There was some limited interstitial fibrosis condition in the right lung. There is advanced and physical this changes bilaterally. No other abnormalities was noted. The patient is admitted currently for increased shortness of breath typical of an acute COPD exacerbation. He has increased cough chest tightness or wheezing. No chest pain. No fever or chills. No hemoptysis. No pleurisy. No swelling in the lower extremities. No change in mental status. His chest x-ray showing some patchy atelectatic changes and volume loss in the right hemithorax which is unchanged from previous chest x-rays and this is probably related to previous radiation therapy. The patient also has a neurostimulator in the mid thoracic spine and the left lung is essentially clear. On 11/23/2016, the patient essentially the same. He still having shortness of breath. COPD still on the ongoing exacerbation. Meanwhile, the patient was noted to have an elevated lactic acid level. Blood cultures showing gram- positive cocci and for that reason the patient was given a dose of vancomycin. He is also receiving a liter of IV fluid bolus. No hypotension. No fever. No significant leukocytosis. Blood cultures will be repeated. This can as well be a contaminant. Nevertheless, the elevation of lactic acid level is to be monitored and followed up. On 11/24/2016, the patient is doing slightly better. His less short of breath compared to yesterday. Lactic acid levels are dropping and is down to 2.4. Patient was given a dose of vancomycin. The subsequent blood culture showed gram-negative is negative staph. The chest x-ray remains free of any pneumonia. His chronic emphysematous changes with right-sided scarring and volume loss. No suspicious pulmonary infiltrates seen. On 11/25/2016, patient was noted to have worsening shortness of breath, and worsening chest x-ray with worsening left lower lobe pneumonia. Patient was noted to be in moderate respiratory distress, hence we have arranged for the patient to be transferred to the ICU and placed on BiPAP. In the meantime we have continued his antibiotics coverage as already started by Dr. Fernandez. Patient is also on proper bronchodilators. Blood cultures on admission showed contamination with coagulase-negative staph aureus. Follow-up blood cultures remained negative. Sputum is showing gram-positive cocci and few yeast. Final report is pending. On 11/26/2016, patient seems to be doing better, breathing easier, he is now back on nasal cannula, responded well to bronchodilators, antibiotics, steroids , and I believe diuretics made a significant improvement in his overall pulmonary status. Patient did not require BiPAP overnight, and he seems to be much more comfortable today, he sounds much clearer today compared to yesterday. CT of the chest was reviewed labs were reviewed and his WBC count is 9.3 today. Electrolytes and basic metabolic profile are normal. Reevaluated on 11/27/2016, continues to do well, patient was on BiPAP early this morning, and he would be switched back to nasal cannula. Chest x-ray continues to show improvement and I plan to transfer the patient out of the ICU today. On physical examination, continues to sound relatively clear, renal profile showed slight prerenal azotemia, hence I will cut down on the Lasix to 20 mg daily, and we'll continue IV fluid at minimal. CBC is relatively unremarkable. Objective - Vital Signs Vital signs: Vital Signs Temp 97.1 F L 11/27/16 13:00 Pulse 96 11/27/16 13:00 Resp 20 11/27/16 13:00 BP 171/82 11/27/16 13:00 Pulse Ox 91 L 11/27/16 13:00 Intake & Output 11/26/16 11/27/16 11/27/16 18:59 06:59 18:59 Intake Total 860 390 330 Output Total 2900 750 Balance -2040 -360 330 Weight 83.1 kg 81.1 kg Intake: IV 220 240 180 Dextrose 5% in Water 1, 60 000 ml @ 60 mls/hr IV . [id number] ALO Rx#:[id number] Sodium Chloride 0.9% 1, 220 240 120 000 ml @ 20 mls/hr IV . Q24H ALO Rx#:[id number] Intake, IV Titration 200 Amount Potassium Chloride 10 meq 100 Lidocaine 2% Inj 10 mg In Sodium Chloride 0.9% 100 ml @ 100 mls/hr IV Q1HR ALO Rx#:[id number] cefTRIAXone 1,000 mg In 100 Sodium Chloride 0.9% 50 ml @ 100 mls/hr IVPB Q24H [facility]O Rx#:[id number] Oral 400 150 150 Tube Feeding 40 Output: Urine 2900 750 Other: Voiding Method Urinal Urinal # Voids 1 # Bowel Movements 1 - Exam Physical Exam: Revealed a 70-year-old white male in no form of respiratory distress HEENT:[Neck is supple.] [No neck masses.] [No thyromegaly.] [No JVD.] Chest: [Diminished breath sound bilaterally, no rhonchi, no wheezes Cardiac Exam: [Normal S1 and S2, no S3 gallop, no murmur.] Abdomen: [Soft, nontender, no megaly, no rebound, no guarding, normal bowel sounds.] Extremities: [No clubbing, no edema, no cyanosis.] Neurological Exam: [No focal neurologic deficit.] - Labs CBC & Chem 7: 11/27/16 04:59 11/27/16 04:59 Labs: Abnormal Lab Results - Last 24 Hours (Table) 11/26/16 11/26/16 11/27/16 Range/Units 17:29 20:57 04:59 RBC 3.94 L (4.30-5.90) m/uL Hgb 11.8 L (13.0-17.5) gm/dL Hct 36.8 L (39.0-53.0) % Plt Count 139 L (150-450) k/uL Neutrophils # 9.1 H (1.3-7.7) k/uL Lymphocytes # 0.3 L (1.0-4.8) k/uL Chloride (98-107) mmol/L BUN (9-20) mg/dL POC Glucose (mg/dL) 183 H 191 H (75-99) mg/dL 11/27/16 11/27/16 11/27/16 Range/Units 04:59 07:52 07:56 RBC (4.30-5.90) m/uL Hgb (13.0-17.5) gm/dL Hct (39.0-53.0) % Plt Count (150-450) k/uL Neutrophils # (1.3-7.7) k/uL Lymphocytes # (1.0-4.8) k/uL Chloride 108 H (98-107) mmol/L BUN 41 H (9-20) mg/dL POC Glucose (mg/dL) 21 L 20 L (75-99) mg/dL 11/27/16 11/27/16 11/27/16 Range/Units 11:30 11:32 11:50 RBC (4.30-5.90) m/uL Hgb (13.0-17.5) gm/dL Hct (39.0-53.0) % Plt Count (150-450) k/uL Neutrophils # (1.3-7.7) k/uL Lymphocytes # (1.0-4.8) k/uL Chloride (98-107) mmol/L BUN (9-20) mg/dL POC Glucose (mg/dL) 28 L 30 L 103 H (75-99) mg/dL 11/27/16 11/27/16 Range/Units 12:47 13:06 RBC (4.30-5.90) m/uL Hgb (13.0-17.5) gm/dL Hct (39.0-53.0) % Plt Count (150-450) k/uL Neutrophils # (1.3-7.7) k/uL Lymphocytes # (1.0-4.8) k/uL Chloride (98-107) mmol/L BUN (9-20) mg/dL POC Glucose (mg/dL) 38 L 108 H (75-99) mg/dL Microbiology - Last 24 Hours (Table) 11/24/16 07:41 Blood Culture - Preliminary Blood No Growth after 72 hours 11/24/16 16:45 Gram Stain - Preliminary Sputum Sputum Culture - Preliminary Aspergillus species 11/21/16 16:16 Blood Culture - Preliminary Blood No Growth after 120 hours 11/23/16 13:05 Blood Culture - Preliminary Blood No Growth after 72 hours Assessment and Plan Plan: Acute hypoxic respiratory failure secondary to severe COPD, history of lung cancer, and possible right midlung pneumonia or postinflammatory changes in the right midlung area could also be related to previous radiation to the right midlung. The left lower lobe changes have significantly improved hence I believe they were most likely related to atelectasis. Patient is improving and feels much better on 11/26/2016. 2 history of squamous cell carcinoma of the right lung, status post chemoradiation therapy in 2012. Patient remains in remission. Last CT of the chest was done in September of 2016. 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 Patient's follow-up blood cultures remain negative. Plan Continue BiPAP as needed, continue bronchodilators, antibiotics, diuretics, added itraconazole today, transfer patient out of the ICU to a regular medical floor today, and we'll continue to follow. Time with Patient: Less than 30
[2016-11-27 14:21] LABS: Glucose,Whole Blood 147 mg/dL (75-99)
[2016-11-27 15:37] LABS: Glucose,Whole Blood 158 mg/dL (75-99)
[2016-11-27 16:26] LABS: Glucose,Whole Blood 155 mg/dL (75-99)
[2016-11-27 18:11] LABS: Glucose,Whole Blood 165 mg/dL (75-99)
[2016-11-27 20:15] LABS: Glucose,Whole Blood 246 mg/dL (75-99)
[2016-11-27] MEDS: ZOLPIDEM 5 MG TAB PO PRN (21:19)
[2016-11-28] MEDS: HYDROcodone/APAP 10-325MG 1 EACH TAB PO PRN ×6 (00:12→20:57)
[2016-11-28 00:15] LABS: Glucose,Whole Blood 224 mg/dL (75-99)
[2016-11-28 05:33] LABS: Basophils % (A) 0 %; CH 29.7; CHCM 31.9; Eosinophils % (A) 0 %; HGB 11.3 gm/dL (13.0-17.5); Luc # (Auto) 0.05; Luc % (Auto) 0; Lymphocytes # (A) 0.3 k/uL (1.0-4.8); Lymphocytes % (A) 3 %; MCH 30.1 pg (25.0-35.0); MCHC 32.3 g/dL (31.0-37.0); MCV 93.2 fL (80.0-100.0); Mean Platelet Volume 6.9; Monocytes # (A) 0.4 k/uL (0-1.0); Monocytes % (A) 3 %; Neutrophils # (A) 10.3 k/uL (1.3-7.7); Neutrophils % (A) 93 %; RBC 3.76 m/uL (4.30-5.90); RDW 13.5 % (11.5-15.5); WBC 11.1 k/uL (3.8-10.6)
[2016-11-28 06:00] LABS: Anion Gap 8 mmol/L; Blood Urea Nitrogen 40 mg/dL (9-20); Calcium 8.1 mg/dL (8.4-10.2); Carbon Dioxide 27 mmol/L (22-30); Chloride 105 mmol/L (98-107); Glucose 202 mg/dL (74-99); Magnesium 1.9 mg/dL (1.6-2.3); Non-African American GFR(MDRD) >60 (>60 ml/min/1.73 sqM); Phosphorous 3.7 mg/dL (2.5-4.5); Potassium 4.2 mmol/L (3.5-5.1); Sodium 140 mmol/L (137-145)
[2016-11-28] MEDS ORDERED: Magnesium Replacement Protocol 1 EACH MISC MISCELLANE PRN (06:30)
[2016-11-28] MEDS: MAGNESIUM SULFATE-D5W PMX 1 GM in DEXTROSE/WATER 1 100ML.BAG IVPB SCH ×2 (06:47→08:27)
[2016-11-28] MEDS: methylPREDNISolone SOD SUCCI 125 MG/2 ML VIAL IV SCH ×3 (06:47→18:37)
--- NOTE | 2016-11-28 07:34 | XR ---
EXAMINATION TYPE: XR chest 1V DATE OF EXAM: 11/28/2016 6:53 AM COMPARISON: NONE INDICATION: Pneumonia TECHNIQUE: Single frontal view of the chest is obtained. FINDINGS: The heart size is normal. The pulmonary vasculature is normal. Minimal atelectasis at the right base. This may be slightly improved. There is some scarring or infil trate within the right peripheral upper lobe Stimulator leads are present IMPRESSION: 1. Minimal infiltrate at the right base and in the periphery of the right upper lobe. Findings appear stable, this could be chronic. 2. Acute process is not otherwise identified.
[2016-11-28 07:43] LABS: Glucose,Whole Blood 209 mg/dL (75-99)
[2016-11-28] MEDS: PANTOPRAZOLE 40 MG TABLET PO SCH (08:28)
[2016-11-28] MEDS: INSULIN LISPRO (humaLOG) 300 UNIT/3 ML VIAL SQ SCH (08:29)
[2016-11-28] MEDS: DOCUSATE 100 MG CAP PO SCH ×2 (08:30→20:56)
[2016-11-28] MEDS: LISINOPRIL 20 MG TAB PO SCH (08:30)
[2016-11-28] MEDS: CHLORPHEN-HYDROcod 8-10mg/5ml 5 ML ORAL.SYRG PO SCH ×2 (08:30→20:55)
[2016-11-28] MEDS: HEPARIN SODIUM,PORCINE 5,000 UNIT/ML 1 ML VIAL SQ SCH ×2 (08:30→20:56)
[2016-11-28] MEDS: ASPIRIN 81 MG CHEW PO SCH (08:30)
[2016-11-28] MEDS: AZITHROMYCIN 500 MG TAB PO SCH (08:30)
[2016-11-28] MEDS: SERTRALINE 50 MG TAB PO SCH (08:30)
[2016-11-28] MEDS: ATORVASTATIN 20 MG TAB PO SCH (08:30)
[2016-11-28] MEDS: LORATADINE 10 MG TAB PO SCH (08:30)
[2016-11-28] MEDS: FUROSEMIDE 20 MG TAB PO SCH (08:30)
[2016-11-28] MEDS: ITRACONAZOLE 100 MG CAP PO SCH (08:37)
[2016-11-28] MEDS: BENZONATATE 100 MG CAP PO SCH ×3 (08:38→20:58)
--- NOTE | 2016-11-28 09:08 | PN ---
DATE OF SERVICE: 11/27/2016 REASON FOR FOLLOWUP: 1. Tracheobronchitis. 2. Patient with positive sputum with Aspergillus. INTERVAL HISTORY: The patient is afebrile. His breathing has slightly improved. Denies any chest pain. He did have some cough. No significant abdominal pain or any diarrhea. On examination, blood pressure is 152/88 with a pulse of 94, temperature 98. He is 94% on 5-L nasal cannula. General description is an elderly male up in the bed in no distress. RESPIRATORY SYSTEM: Unlabored breathing with decreased breath sounds and occasional wheeze. HEART: S1, S2. Regular rate and rhythm. ABDOMEN: Soft. No tenderness. LABS: Hemoglobin 11.8, white count 10.1. BUN 41, creatinine 1. Sputum showed Aspergillus species. DIAGNOSTIC IMPRESSION AND PLAN: 1. Patient with positive blood culture with coagulase-negative staph likely skin contamination. 2. Patient with tracheobronchitis exacerbation now with sputum showing Aspergillus with a question of possible colonization vs allergic bronchopulmonary aspergillosis.. will go ahead and order aspergillus specific IgE antibody as well as compliment-fixing antibodies to see if the patient meet criteria for allergic bronchopulmonary aspergillosis, Sporanox has been added. Continue to monitor closely. [facility]
[2016-11-28] MEDS: IPRATROPIUM-ALBUTEROL 3 ML NEB INHALATION SCH ×4 (09:10→19:47)
[2016-11-28] MEDS: BUDESONIDE 1 MG/2 ML NEBU INHALATION SCH ×2 (09:10→19:47)
[2016-11-28] MEDS: FORMOTEROL FUMARATE 20 MCG/2 ML NEBU INHALATION SCH ×2 (09:10→19:47)
[2016-11-28 09:47] VITALS: BMI 26.2
[2016-11-28] MEDS: ALPRAZolam 0.5 MG TAB PO PRN ×2 (10:03→19:54)
[2016-11-28 12:36] LABS: Glucose,Whole Blood 278 mg/dL (75-99)
[2016-11-28] MEDS: INSULIN REGULAR 100 UNIT in SODIUM CHLORIDE 0.9% 100 ML IV SCH ×2 (13:08→23:12)
[2016-11-28 13:43] LABS: Glucose,Whole Blood 344 mg/dL (75-99)
--- NOTE | 2016-11-28 14:06 | P.PN ---
Subjective Principal diagnosis: Acute respiratory failure secondary to COPD and pneumonia involving the left lower lobe and right midlung 70-year-old male patient with advanced oxygen-dependent COPD was typically on 3 L of Oxymizer by nasal cannula. The patient has an FEV1 of 47% of predicted. The patient also has history of non-small cell lung cancer that was treated with radiation therapy to the chest. 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 A subsequent CAT scan of the chest from June 2015 had shown no evidence of any recurrence. Following that, the patient had another CAT scan of the chest on 10/21/2016 and there were stable postradiation changes in the right lung. There was also volume loss in the right lung. There was some limited interstitial fibrosis condition in the right lung. There is advanced and physical this changes bilaterally. No other abnormalities was noted. The patient is admitted currently for increased shortness of breath typical of an acute COPD exacerbation. He has increased cough chest tightness or wheezing. No chest pain. No fever or chills. No hemoptysis. No pleurisy. No swelling in the lower extremities. No change in mental status. His chest x-ray showing some patchy atelectatic changes and volume loss in the right hemithorax which is unchanged from previous chest x-rays and this is probably related to previous radiation therapy. The patient also has a neurostimulator in the mid thoracic spine and the left lung is essentially clear. On 11/23/2016, the patient essentially the same. He still having shortness of breath. COPD still on the ongoing exacerbation. Meanwhile, the patient was noted to have an elevated lactic acid level. Blood cultures showing gram- positive cocci and for that reason the patient was given a dose of vancomycin. He is also receiving a liter of IV fluid bolus. No hypotension. No fever. No significant leukocytosis. Blood cultures will be repeated. This can as well be a contaminant. Nevertheless, the elevation of lactic acid level is to be monitored and followed up. On 11/24/2016, the patient is doing slightly better. His less short of breath compared to yesterday. Lactic acid levels are dropping and is down to 2.4. Patient was given a dose of vancomycin. The subsequent blood culture showed gram-negative is negative staph. The chest x-ray remains free of any pneumonia. His chronic emphysematous changes with right-sided scarring and volume loss. No suspicious pulmonary infiltrates seen. On 11/25/2016, patient was noted to have worsening shortness of breath, and worsening chest x-ray with worsening left lower lobe pneumonia. Patient was noted to be in moderate respiratory distress, hence we have arranged for the patient to be transferred to the ICU and placed on BiPAP. In the meantime we have continued his antibiotics coverage as already started by Dr. Fernandez. Patient is also on proper bronchodilators. Blood cultures on admission showed contamination with coagulase-negative staph aureus. Follow-up blood cultures remained negative. Sputum is showing gram-positive cocci and few yeast. Final report is pending. On 11/26/2016, patient seems to be doing better, breathing easier, he is now back on nasal cannula, responded well to bronchodilators, antibiotics, steroids , and I believe diuretics made a significant improvement in his overall pulmonary status. Patient did not require BiPAP overnight, and he seems to be much more comfortable today, he sounds much clearer today compared to yesterday. CT of the chest was reviewed labs were reviewed and his WBC count is 9.3 today. Electrolytes and basic metabolic profile are normal. Reevaluated on 11/27/2016, continues to do well, patient was on BiPAP early this morning, and he would be switched back to nasal cannula. Chest x-ray continues to show improvement and I plan to transfer the patient out of the ICU today. On physical examination, continues to sound relatively clear, renal profile showed slight prerenal azotemia, hence I will cut down on the Lasix to 20 mg daily, and we'll continue IV fluid at minimal. CBC is relatively unremarkable. Reevaluated on 11/28/2016, patient is continuing to do well, did not use his BiPAP last night, continues to have intermittent wheezing on physical examination. But overall the patient has made a significant improvement over the last couple of days in the ICU. CBC was reviewed. Electrolytes were noted. Objective - Vital Signs Vital signs: Vital Signs Temp 97.8 F 11/28/16 12:00 Pulse 103 H 11/28/16 13:00 Resp 18 11/28/16 13:00 BP 132/74 11/28/16 13:00 Pulse Ox 92 L 11/28/16 13:00 Intake & Output 12/11/28/16 11/28/16 18:59 06:59 18:59 Intake Total 605 200 506.245 Output Total 850 900 500 Balance -245 -700 6.245 Weight 83.1 kg 83.1 kg Intake: IV 355 100 0.9 at KVO 100 Dextrose 5% in Water 1, 235 000 ml @ 10 mls/hr IV . Q24H ALO Rx#:[id number] Sodium Chloride 0.9% 1, 120 000 ml @ 20 mls/hr IV . Q24H ALO Rx#:[id number] Intake, IV Titration 206.245 Amount Insulin Regular 100 unit 6.245 In Sodium Chloride 0.9% 100 ml @ Titrate IV .Q0M ALO Rx#:[id number] Magnesium Sulfate-D5w Pmx 200 1 gm In Dextrose/Water 1 100ml.bag @ 100 mls/hr IVPB Q1H ALO Rx#: [id number] Oral 250 200 200 Output: Urine 850 900 500 Other: Voiding Method Urinal Urinal Urinal - Labs CBC & Chem 7: 11/28/16 04:59 11/28/16 04:59 Labs: Abnormal Lab Results - Last 24 Hours (Table) 11/27/16 11/27/16 11/27/16 Range/Units 14:20 15:36 16:23 WBC (3.8-10.6) k/uL RBC (4.30-5.90) m/uL Hgb (13.0-17.5) gm/dL Hct (39.0-53.0) % Plt Count (150-450) k/uL Neutrophils # (1.3-7.7) k/uL Lymphocytes # (1.0-4.8) k/uL BUN (9-20) mg/dL Glucose (74-99) mg/dL POC Glucose (mg/dL) 147 H 158 H 155 H (75-99) mg/dL Calcium (8.4-10.2) mg/dL 11/27/16 11/27/16 11/28/16 Range/Units 18:08 20:13 00:13 WBC (3.8-10.6) k/uL RBC (4.30-5.90) m/uL Hgb (13.0-17.5) gm/dL Hct (39.0-53.0) % Plt Count (150-450) k/uL Neutrophils # (1.3-7.7) k/uL Lymphocytes # (1.0-4.8) k/uL BUN (9-20) mg/dL Glucose (74-99) mg/dL POC Glucose (mg/dL) 165 H 246 H 224 H (75-99) mg/dL Calcium (8.4-10.2) mg/dL 11/28/16 11/28/16 11/28/16 Range/Units 04:59 04:59 07:41 WBC 11.1 H (3.8-10.6) k/uL RBC 3.76 L (4.30-5.90) m/uL Hgb 11.3 L (13.0-17.5) gm/dL Hct 35.0 L (39.0-53.0) % Plt Count 135 L (150-450) k/uL Neutrophils # 10.3 H (1.3-7.7) k/uL Lymphocytes # 0.3 L (1.0-4.8) k/uL BUN 40 H (9-20) mg/dL Glucose 202 H (74-99) mg/dL POC Glucose (mg/dL) 209 H (75-99) mg/dL Calcium 8.1 L (8.4-10.2) mg/dL 11/28/16 11/28/16 Range/Units 12:33 13:41 WBC (3.8-10.6) k/uL RBC (4.30-5.90) m/uL Hgb (13.0-17.5) gm/dL Hct (39.0-53.0) % Plt Count (150-450) k/uL Neutrophils # (1.3-7.7) k/uL Lymphocytes # (1.0-4.8) k/uL BUN (9-20) mg/dL Glucose (74-99) mg/dL POC Glucose (mg/dL) 278 H 344 H (75-99) mg/dL Calcium (8.4-10.2) mg/dL Microbiology - Last 24 Hours (Table) 11/24/16 07:41 Blood Culture - Preliminary Blood No Growth after 96 hours 11/24/16 16:45 Gram Stain - Final Sputum Sputum Culture - Final Aspergillus fumigatus 11/21/16 16:16 Blood Culture - Final Blood No Growth after 144 hours 11/23/16 13:05 Blood Culture - Preliminary Blood No Growth after 96 hours Assessment and Plan Plan: Acute hypoxic respiratory failure secondary to severe COPD, history of lung cancer, and possible right midlung pneumonia or postinflammatory changes in the right midlung area could also be related to previous radiation to the right midlung. The left lower lobe changes have significantly improved hence I believe they were most likely related to atelectasis. Patient is improving and feels much better on 11/26/2016. 2 history of squamous cell carcinoma of the right lung, status post chemoradiation therapy in 2012. Patient remains in remission. Last CT of the chest was done in September of 2016. 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 Patient's follow-up blood cultures remain negative. Plan Continue BiPAP as needed, continue bronchodilators, antibiotics, diuretics, added itraconazole today, transfer patient out of the ICU to a regular medical floor today, and we'll continue to follow. Time with Patient: Less than 30
[2016-11-28 14:28] LABS: Glucose,Whole Blood 312 mg/dL (75-99)
[2016-11-28 15:31] LABS: Glucose,Whole Blood 323 mg/dL (75-99)
[2016-11-28 16:16] LABS: Glucose,Whole Blood 319 mg/dL (75-99)
[2016-11-28 16:47] LABS: Glucose,Whole Blood 289 mg/dL (75-99)
[2016-11-28 17:44] LABS: Glucose,Whole Blood 210 mg/dL (75-99)
--- NOTE | 2016-11-28 18:01 | PN ---
DATE OF SERVICE: 11/28/2016 This 70-year-old gentleman who was admitted with acute hypoxic respiratory failure secondary to COPD, acute exacerbation, is being closely monitored at this time. Patient sepsis. Seen and evaluated the patient along with the nurse practitioner. Please refer to the nurse practitioner's notes and impressions documented as a scribe for further information. Prognosis guarded. Further recommendations to follow. MTDD
[2016-11-28 19:38] LABS: Glucose,Whole Blood 212 mg/dL (75-99)
--- NOTE | 2016-11-28 19:48 | P.PN ---
Subjective Principal diagnosis: COPD exacerbation Date of service 11/27/2016. Progress note being dictated for Dr. Del Valle. Interval history: This is a 70-year-old gentleman admitted with acute COPD exacerbation, possible bacteremia, acute hypoxic respiratory failure requiring BiPAP and multiple other medical issues. No BiPAP during the night, required BiPAP earlier this morning, which has now been weaned to 5 L nasal cannula, maintaining O2 sats in the mid 90s. Maintained on nebulized bronchodilators, antibiotics, steroids. Sputum growing Aspergillus, blood cultures with coagulase-negative staph, suspect contamination. Chest x-ray stable reporting no new acute pulmonary process. Afebrile. Hypoglycemic, good diet intake. Objective - Vital Signs Vital signs: Vital Signs Temp 97.1 F L 11/27/16 13:00 Pulse 96 11/27/16 13:00 Resp 20 11/27/16 13:00 BP 171/82 11/27/16 13:00 Pulse Ox 91 L 11/27/16 13:00 Intake & Output 11/26/16 11/27/16 11/27/16 18:59 06:59 18:59 Intake Total 860 390 330 Output Total 2900 750 Balance -2040 -360 330 Weight 83.1 kg 81.1 kg Intake: IV 220 240 180 Dextrose 5% in Water 1, 60 000 ml @ 60 mls/hr IV . [id number] ALO Rx#:[id number] Sodium Chloride 0.9% 1, 220 240 120 000 ml @ 20 mls/hr IV . Q24H ALO Rx#:[id number] Intake, IV Titration 200 Amount Potassium Chloride 10 meq 100 Lidocaine 2% Inj 10 mg In Sodium Chloride 0.9% 100 ml @ 100 mls/hr IV Q1HR ALO Rx#:[id number] cefTRIAXone 1,000 mg In 100 Sodium Chloride 0.9% 50 ml @ 100 mls/hr IVPB Q24H ALO Rx#:[id number] Oral 400 150 150 Tube Feeding 40 Output: Urine 2900 750 Other: Voiding Method Urinal Urinal # Voids 1 # Bowel Movements 1 - Exam PHYSICAL EXAM: VITAL SIGNS: As above GENERAL: [Sitting up in bed, no acute distress HEENT: [Pupils equal conjunctiva normal.] NECK: [Supple, no JVD] RESPIRATORY EFFORT:[Normal LUNGS: Diminished, no rhonchi, occasional fine expiratory wheezing CARDIOVASCULAR regular S1 and S2, no gallops, no murmur, no edema GI: [Abdomen soft, nontender, positive bowel sounds.] PSYCH: [Alert and oriented -3, mood and affect normal] NEURO: No focal deficits Microbiology 11/23/16 13:05 Blood Blood Culture - Preliminary No Growth after 120 hours 11/24/16 07:41 Blood Blood Culture - Preliminary No Growth after 96 hours 11/24/16 16:45 Sputum Gram Stain - Final 11/24/16 16:45 Sputum Sputum Culture - Final Aspergillus fumigatus 11/21/16 16:16 Blood Blood Culture - Final No Growth after 144 hours 11/21/16 16:16 Blood Blood Culture Gram Stain - Final 11/21/16 16:16 Blood Blood Culture - Final Coagulase Negative Staph 11/21/16 02:10 Sputum Gram Stain - Final 11/21/16 02:10 Sputum Sputum Culture - Final 11/21/16 16:39 Blood Blood Culture - Preliminary 11/21/16 18:45 Urine,Clean Catch Urine Culture - Final - Labs CBC & Chem 7: 11/28/16 04:59 11/28/16 04:59 Labs: Abnormal Lab Results - Last 24 Hours (Table) 11/26/16 11/26/16 11/27/16 Range/Units 17:29 20:57 04:59 RBC 3.94 L (4.30-5.90) m/uL Hgb 11.8 L (13.0-17.5) gm/dL Hct 36.8 L (39.0-53.0) % Plt Count 139 L (150-450) k/uL Neutrophils # 9.1 H (1.3-7.7) k/uL Lymphocytes # 0.3 L (1.0-4.8) k/uL Chloride (98-107) mmol/L BUN (9-20) mg/dL POC Glucose (mg/dL) 183 H 191 H (75-99) mg/dL 11/27/16 11/27/16 11/27/16 Range/Units 04:59 07:52 07:56 RBC (4.30-5.90) m/uL Hgb (13.0-17.5) gm/dL Hct (39.0-53.0) % Plt Count (150-450) k/uL Neutrophils # (1.3-7.7) k/uL Lymphocytes # (1.0-4.8) k/uL Chloride 108 H (98-107) mmol/L BUN 41 H (9-20) mg/dL POC Glucose (mg/dL) 21 L 20 L (75-99) mg/dL 11/27/16 11/27/16 11/27/16 Range/Units 11:30 11:32 11:50 RBC (4.30-5.90) m/uL Hgb (13.0-17.5) gm/dL Hct (39.0-53.0) % Plt Count (150-450) k/uL Neutrophils # (1.3-7.7) k/uL Lymphocytes # (1.0-4.8) k/uL Chloride (98-107) mmol/L BUN (9-20) mg/dL POC Glucose (mg/dL) 28 L 30 L 103 H (75-99) mg/dL 11/27/16 11/27/16 Range/Units 12:47 13:06 RBC (4.30-5.90) m/uL Hgb (13.0-17.5) gm/dL Hct (39.0-53.0) % Plt Count (150-450) k/uL Neutrophils # (1.3-7.7) k/uL Lymphocytes # (1.0-4.8) k/uL Chloride (98-107) mmol/L BUN (9-20) mg/dL POC Glucose (mg/dL) 38 L 108 H (75-99) mg/dL Microbiology - Last 24 Hours (Table) 11/24/16 07:41 Blood Culture - Preliminary Blood No Growth after 72 hours 11/24/16 16:45 Gram Stain - Preliminary Sputum Sputum Culture - Preliminary Aspergillus species 11/21/16 16:16 Blood Culture - Preliminary Blood No Growth after 120 hours 11/23/16 13:05 Blood Culture - Preliminary Blood No Growth after 72 hours Assessment and Plan Plan: 1. 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 2. Possible sepsis with tracheobronchitis with Aspergillus]. Lactic acid normalized. 3. [Possible bacteremia, initial blood culture coagulase-negative Staphylococcus , preliminary repeat negative]. 4. [Diabetes mellitus, hemoglobin A1c 7.1 uncontrolled ]. 5. [CKD, stage II, secondary to Diabetic nephropathy]. 6. [Hyperlipidemia]. 7. [Hypertension]. 8. Osteoarthritis 9. Asbestos exposure 10. Single kidney, congenital Plan: Continue on current medication regime, nebulized bronchodilators, steroids , antibiotics, monitoring and symptomatic treatment. Antifungal added to med regime. Lantus discontinued, glipizide placed on hold. Close monitoring of Accu -Cheks. Follow closely with both infectious disease and pulmonary. Prognosis guarded. Further recommendations to follow. The impression and plan of care has been dictated as directed. : I performed a H&P examination of this patient and discussed the same with the dictator. I agree with the dictator's note. Any additional findings/opinions/ etc. will be noted.
[2016-11-28] MEDS: ZOLPIDEM 5 MG TAB PO PRN (20:56)
[2016-11-28 21:07] LABS: Glucose,Whole Blood 196 mg/dL (75-99)
[2016-11-28 23:08] LABS: Glucose,Whole Blood 211 mg/dL (75-99)
[2016-11-29] MEDS: methylPREDNISolone SOD SUCCI 125 MG/2 ML VIAL IV SCH ×5 (00:40→23:34)
[2016-11-29 01:11] LABS: Glucose,Whole Blood 171 mg/dL (75-99)
[2016-11-29 03:30] LABS: Glucose,Whole Blood 130 mg/dL (75-99)
[2016-11-29 04:58] LABS: Glucose,Whole Blood 107 mg/dL (75-99)
[2016-11-29] MEDS: HYDROcodone/APAP 10-325MG 1 EACH TAB PO PRN ×3 (05:57→18:17)
[2016-11-29] MEDS: ALPRAZolam 0.5 MG TAB PO PRN ×3 (05:57→20:19)
[2016-11-29 06:28] LABS: Glucose,Whole Blood 128 mg/dL (75-99)
[2016-11-29] MEDS: IPRATROPIUM-ALBUTEROL 3 ML NEB INHALATION SCH ×4 (07:01→19:27)
[2016-11-29] MEDS: BUDESONIDE 1 MG/2 ML NEBU INHALATION SCH ×2 (07:01→19:27)
[2016-11-29] MEDS: FORMOTEROL FUMARATE 20 MCG/2 ML NEBU INHALATION SCH ×2 (07:01→19:27)
[2016-11-29 07:27] LABS: Glucose,Whole Blood 150 mg/dL (75-99)
[2016-11-29 07:59] LABS: Basophils % (A) 0 %; CH 30.4; Eosinophils % (A) 0 %; HCT 36.3 % (39.0-53.0); HDW 2.21; HGB 11.2 gm/dL (13.0-17.5); Luc # (Auto) 0.05; Luc % (Auto) 1; Lymphocytes # (A) 0.2 k/uL (1.0-4.8); Lymphocytes % (A) 2 %; MCH 29.6 pg (25.0-35.0); MCHC 30.9 g/dL (31.0-37.0); MCV 95.6 fL (80.0-100.0); Mean Platelet Volume 7.9; Monocytes # (A) 0.5 k/uL (0-1.0); Monocytes % (A) 5 %; Neutrophils # (A) 9.4 k/uL (1.3-7.7); Neutrophils % (A) 92 %; RDW 13.9 % (11.5-15.5); WBC 10.2 k/uL (3.8-10.6); WBC (Perox) 10.99
[2016-11-29 08:06] LABS: Anion Gap 8 mmol/L; Blood Urea Nitrogen 32 mg/dL (9-20); Calcium 8.2 mg/dL (8.4-10.2); Carbon Dioxide 29 mmol/L (22-30); Chloride 107 mmol/L (98-107); Glucose 147 mg/dL (74-99); Magnesium 2.1 mg/dL (1.6-2.3); Non-African American GFR(MDRD) >60 (>60 ml/min/1.73 sqM); Phosphorous 3.6 mg/dL (2.5-4.5); Potassium 4.2 mmol/L (3.5-5.1); Sodium 144 mmol/L (137-145)
[2016-11-29] MEDS: DOCUSATE 100 MG CAP PO SCH ×2 (08:36→20:20)
[2016-11-29] MEDS: AZITHROMYCIN 500 MG TAB PO SCH (08:36)
[2016-11-29] MEDS: PANTOPRAZOLE 40 MG TABLET PO SCH (08:36)
[2016-11-29] MEDS: BENZONATATE 100 MG CAP PO SCH ×3 (08:37→20:22)
[2016-11-29] MEDS: SERTRALINE 50 MG TAB PO SCH (08:37)
[2016-11-29] MEDS: LISINOPRIL 20 MG TAB PO SCH (08:37)
[2016-11-29] MEDS: ASPIRIN 81 MG CHEW PO SCH (08:37)
[2016-11-29] MEDS: FUROSEMIDE 20 MG TAB PO SCH (08:37)
[2016-11-29] MEDS: LORATADINE 10 MG TAB PO SCH (08:37)
[2016-11-29] MEDS: ATORVASTATIN 20 MG TAB PO SCH (08:38)
[2016-11-29] MEDS: ITRACONAZOLE 100 MG CAP PO SCH (08:38)
[2016-11-29] MEDS: HEPARIN SODIUM,PORCINE 5,000 UNIT/ML 1 ML VIAL SQ SCH ×2 (08:39→20:20)
[2016-11-29] MEDS: CHLORPHEN-HYDROcod 8-10mg/5ml 5 ML ORAL.SYRG PO SCH ×2 (08:42→20:19)
--- NOTE | 2016-11-29 08:56 | PN ---
DATE OF SERVICE: 11/28/2016 REASON FOR FOLLOW-UP: 1. Tracheobronchitis with chronic obstructive pulmonary disease exacerbation. 2. Question of possible allergic bronchopulmonary aspergillus. INTERVAL HISTORY: The patient is afebrile. His breathing has slightly improved. He continues to have some cough, but not bringing up significant amount of sputum. Denies any chest pain, no abdominal pain, no diarrhea. On examination, blood pressure 158/76 with pulse of 106, temperature 98.4. He is 97% on 2 liters nasal cannula. General description is an elderly male lying in bed in no distress. RESPIRATORY SYSTEM: Unlabored breathing with decreased breath sounds at the base. Occasional wheeze. HEART: S1, S2 regular rate and rhythm. ABDOMEN: Soft, no tenderness. LABS: Hemoglobin 11.3, white count 11.1. DIAGNOSTIC IMPRESSION AND PLAN: 1. Patient with chronic obstructive pulmonary disease exacerbation with tracheobronchitis with question of possible allergic bronchopulmonay aspergilosis sputum culture showing aspergillus fumigatus. His eosinophil count is low. He is still awaiting for the IgE antibodies to the aspergillus. 2. Positive blood culture with coagulase-negative Staphylococcus. Follow up blood cultures negative. Likely skin contamination. MTDD
[2016-11-29 09:50] LABS: Glucose,Whole Blood 281 mg/dL (75-99)
[2016-11-29 11:26] LABS: Glucose,Whole Blood 224 mg/dL (75-99)
[2016-11-29 12:39] LABS: Glucose,Whole Blood 143 mg/dL (75-99)
[2016-11-29] MEDS: INSULIN LISPRO (humaLOG) 300 UNIT/3 ML VIAL SQ SCH ×4 (12:50→20:21)
--- NOTE | 2016-11-29 13:58 | P.PN ---
Subjective Principal diagnosis: Acute respiratory failure secondary to COPD and pneumonia involving the left lower lobe and right midlung 70-year-old male patient with advanced oxygen-dependent COPD was typically on 3 L of Oxymizer by nasal cannula. The patient has an FEV1 of 47% of predicted. The patient also has history of non-small cell lung cancer that was treated with radiation therapy to the chest. 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 A subsequent CAT scan of the chest from June 2015 had shown no evidence of any recurrence. Following that, the patient had another CAT scan of the chest on 10/21/2016 and there were stable postradiation changes in the right lung. There was also volume loss in the right lung. There was some limited interstitial fibrosis condition in the right lung. There is advanced and physical this changes bilaterally. No other abnormalities was noted. The patient is admitted currently for increased shortness of breath typical of an acute COPD exacerbation. He has increased cough chest tightness or wheezing. No chest pain. No fever or chills. No hemoptysis. No pleurisy. No swelling in the lower extremities. No change in mental status. His chest x-ray showing some patchy atelectatic changes and volume loss in the right hemithorax which is unchanged from previous chest x-rays and this is probably related to previous radiation therapy. The patient also has a neurostimulator in the mid thoracic spine and the left lung is essentially clear. On 11/23/2016, the patient essentially the same. He still having shortness of breath. COPD still on the ongoing exacerbation. Meanwhile, the patient was noted to have an elevated lactic acid level. Blood cultures showing gram- positive cocci and for that reason the patient was given a dose of vancomycin. He is also receiving a liter of IV fluid bolus. No hypotension. No fever. No significant leukocytosis. Blood cultures will be repeated. This can as well be a contaminant. Nevertheless, the elevation of lactic acid level is to be monitored and followed up. On 11/24/2016, the patient is doing slightly better. His less short of breath compared to yesterday. Lactic acid levels are dropping and is down to 2.4. Patient was given a dose of vancomycin. The subsequent blood culture showed gram-negative is negative staph. The chest x-ray remains free of any pneumonia. His chronic emphysematous changes with right-sided scarring and volume loss. No suspicious pulmonary infiltrates seen. On 11/25/2016, patient was noted to have worsening shortness of breath, and worsening chest x-ray with worsening left lower lobe pneumonia. Patient was noted to be in moderate respiratory distress, hence we have arranged for the patient to be transferred to the ICU and placed on BiPAP. In the meantime we have continued his antibiotics coverage as already started by Dr. Fernandez. Patient is also on proper bronchodilators. Blood cultures on admission showed contamination with coagulase-negative staph aureus. Follow-up blood cultures remained negative. Sputum is showing gram-positive cocci and few yeast. Final report is pending. On 11/26/2016, patient seems to be doing better, breathing easier, he is now back on nasal cannula, responded well to bronchodilators, antibiotics, steroids , and I believe diuretics made a significant improvement in his overall pulmonary status. Patient did not require BiPAP overnight, and he seems to be much more comfortable today, he sounds much clearer today compared to yesterday. CT of the chest was reviewed labs were reviewed and his WBC count is 9.3 today. Electrolytes and basic metabolic profile are normal. Reevaluated on 11/27/2016, continues to do well, patient was on BiPAP early this morning, and he would be switched back to nasal cannula. Chest x-ray continues to show improvement and I plan to transfer the patient out of the ICU today. On physical examination, continues to sound relatively clear, renal profile showed slight prerenal azotemia, hence I will cut down on the Lasix to 20 mg daily, and we'll continue IV fluid at minimal. CBC is relatively unremarkable. Reevaluated on 11/28/2016, patient is continuing to do well, did not use his BiPAP last night, continues to have intermittent wheezing on physical examination. But overall the patient has made a significant improvement over the last couple of days in the ICU. CBC was reviewed. Electrolytes were noted. Reevaluated on 11/29/2016, steadily improving but slowly. Less cough and less wheezing less shortness of breath. Did not use his BiPAP overnight. Physical examination showed diminished breath sounds at the bases, no rhonchi, no wheezes. Objective - Vital Signs Vital signs: Vital Signs Temp 97.7 F 11/29/16 00:24 Pulse 98 11/29/16 10:59 Resp 20 11/29/16 08:00 BP 194/78 11/29/16 07:00 Pulse Ox 96 11/29/16 07:03 Intake & Output 11/28/16 11/29/16 11/29/16 18:59 06:59 18:59 Intake Total 1188.598 438.578 1.083 Output Total 1000 350 Balance 188.598 88.578 1.083 Weight 83.1 kg 85 kg Intake: IV 190 220 0.9 at KVO 190 220 Intake, IV Titration 298.598 68.578 1.083 Amount Insulin Regular 100 unit 48.598 68.578 1.083 In Sodium Chloride 0.9% 100 ml @ Titrate IV .Q0M ALO Rx#:[id number] Magnesium Sulfate-D5w Pmx 200 1 gm In Dextrose/Water 1 100ml.bag @ 100 mls/hr IVPB Q1H ALO Rx#: [id number] cefTRIAXone 1,000 mg In 50 Sodium Chloride 0.9% 50 ml @ 100 mls/hr IVPB Q24H ALO Rx#:[id number] Oral 200 150 Tube Feeding 500 Output: Urine 1000 350 Other: Voiding Method Urinal Urinal Urinal - Exam Physical Exam: Revealed a 70-year-old white male in no form of respiratory distress HEENT:[Neck is supple.] [No neck masses.] [No thyromegaly.] [No JVD.] Chest: [Diminished breath sound bilaterally, no rhonchi, no wheezes Cardiac Exam: [Normal S1 and S2, no S3 gallop, no murmur.] Abdomen: [Soft, nontender, no megaly, no rebound, no guarding, normal bowel sounds.] Extremities: [No clubbing, no edema, no cyanosis.] Neurological Exam: [No focal neurologic deficit.] - Labs CBC & Chem 7: 11/29/16 07:06 11/29/16 07:06 Labs: Abnormal Lab Results - Last 24 Hours (Table) 11/28/16 11/28/16 11/28/16 Range/Units 14:26 15:29 16:13 RBC (4.30-5.90) m/uL Hgb (13.0-17.5) gm/dL Hct (39.0-53.0) % MCHC (31.0-37.0) g/dL Plt Count (150-450) k/uL Neutrophils # (1.3-7.7) k/uL Lymphocytes # (1.0-4.8) k/uL BUN (9-20) mg/dL Glucose (74-99) mg/dL POC Glucose (mg/dL) 312 H 323 H 319 H (75-99) mg/dL Calcium (8.4-10.2) mg/dL 11/28/16 11/28/16 11/28/16 Range/Units 16:46 17:41 19:35 RBC (4.30-5.90) m/uL Hgb (13.0-17.5) gm/dL Hct (39.0-53.0) % MCHC (31.0-37.0) g/dL Plt Count (150-450) k/uL Neutrophils # (1.3-7.7) k/uL Lymphocytes # (1.0-4.8) k/uL BUN (9-20) mg/dL Glucose (74-99) mg/dL POC Glucose (mg/dL) 289 H 210 H 212 H (75-99) mg/dL Calcium (8.4-10.2) mg/dL 11/28/16 11/28/16 11/29/16 Range/Units 21:05 23:04 01:09 RBC (4.30-5.90) m/uL Hgb (13.0-17.5) gm/dL Hct (39.0-53.0) % MCHC (31.0-37.0) g/dL Plt Count (150-450) k/uL Neutrophils # (1.3-7.7) k/uL Lymphocytes # (1.0-4.8) k/uL BUN (9-20) mg/dL Glucose (74-99) mg/dL POC Glucose (mg/dL) 196 H 211 H 171 H (75-99) mg/dL Calcium (8.4-10.2) mg/dL 11/29/16 11/29/16 11/29/16 Range/Units 03:27 04:56 06:26 RBC (4.30-5.90) m/uL Hgb (13.0-17.5) gm/dL Hct (39.0-53.0) % MCHC (31.0-37.0) g/dL Plt Count (150-450) k/uL Neutrophils # (1.3-7.7) k/uL Lymphocytes # (1.0-4.8) k/uL BUN (9-20) mg/dL Glucose (74-99) mg/dL POC Glucose (mg/dL) 130 H 107 H 128 H (75-99) mg/dL Calcium (8.4-10.2) mg/dL 11/29/16 11/29/16 11/29/16 Range/Units 07:06 07:06 07:25 RBC 3.80 L (4.30-5.90) m/uL Hgb 11.2 L (13.0-17.5) gm/dL Hct 36.3 L (39.0-53.0) % MCHC 30.9 L (31.0-37.0) g/dL Plt Count 133 L (150-450) k/uL Neutrophils # 9.4 H (1.3-7.7) k/uL Lymphocytes # 0.2 L (1.0-4.8) k/uL BUN 32 H (9-20) mg/dL Glucose 147 H (74-99) mg/dL POC Glucose (mg/dL) 150 H (75-99) mg/dL Calcium 8.2 L (8.4-10.2) mg/dL 11/29/16 11/29/16 11/29/16 Range/Units 09:30 11:25 12:37 RBC (4.30-5.90) m/uL Hgb (13.0-17.5) gm/dL Hct (39.0-53.0) % MCHC (31.0-37.0) g/dL Plt Count (150-450) k/uL Neutrophils # (1.3-7.7) k/uL Lymphocytes # (1.0-4.8) k/uL BUN (9-20) mg/dL Glucose (74-99) mg/dL POC Glucose (mg/dL) 281 H 224 H 143 H (75-99) mg/dL Calcium (8.4-10.2) mg/dL Microbiology - Last 24 Hours (Table) 12/26/16 07:41 Blood Culture - Preliminary Blood No Growth after 120 hours 11/23/16 13:05 Blood Culture - Preliminary Blood No Growth after 120 hours 11/24/16 16:45 Gram Stain - Final Sputum Sputum Culture - Final Aspergillus fumigatus Assessment and Plan Plan: Acute hypoxic respiratory failure secondary to severe COPD, history of lung cancer, and possible right midlung pneumonia or postinflammatory changes in the right midlung area could also be related to previous radiation to the right midlung. The left lower lobe changes have significantly improved hence I believe they were most likely related to atelectasis. Patient is improving and feels much better on 11/29/2016. 2 history of squamous cell carcinoma of the right lung, status post chemoradiation therapy in 2012. Patient remains in remission. Last CT of the chest was done in September of 2016. 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 Patient's follow-up blood cultures remain negative. Plan Continue present treatment plan including bronchodilators antibiotics antifungal , discharge planning in the next 2-3 days. Patient will be advised to ambulate and continue O2. Continue bronchodilators. Time with Patient: Less than 30
--- NOTE | 2016-11-29 14:21 | P.PN ---
Subjective Principal diagnosis: COPD exacerbation Date of service 11/28/2016. Progress note being dictated for Dr. Heck Interval history: This is a 70-year-old gentleman admitted with acute COPD exacerbation, possible bacteremia and multiple other medical issues. Maintained on nebulized buccal dilators, antibiotics and steroids, did not require BiPAP during the night. X-ray reporting stable, minimal right basilar & right upper periphery infiltrate. Maintaining O2 sats of 97% on 2 L nasal cannula. No further hypoglycemic episodes during the night, but sugars trending up as patient on IV steroids. Denies chest pain, palpitations. Good diet intake, denies nausea or vomiting. Cultures in progress as listed below. Afebrile. Objective - Vital Signs Vital signs: Vital Signs Temp 97.8 F 11/28/16 17:00 Pulse 100 11/28/16 17:00 Resp 14 11/28/16 17:00 BP 136/69 11/28/16 17:00 Pulse Ox 94 L 11/28/16 17:00 Intake & Output 11/27/16 11/28/16 11/28/16 18:59 06:59 18:59 Intake Total 586 543 4541.598 Output Total 919 418 7825 Balance -245 -700 188.598 Weight 83.1 kg 83.1 kg Intake: IV 355 190 0.9 at KVO 190 Dextrose 5% in Water 1, 235 000 ml @ 10 mls/hr IV . Q24H ALO Rx#:[id number] Sodium Chloride 0.9% 1, 120 000 ml @ 20 mls/hr IV . Q24H ALO Rx#:[id number] Intake, IV Titration 298.598 Amount Insulin Regular 100 unit 48.598 In Sodium Chloride 0.9% 100 ml @ Titrate IV .Q0M ALO Rx#:[id number] Magnesium Sulfate-D5w Pmx 200 1 gm In Dextrose/Water 1 100ml.bag @ 100 mls/hr IVPB Q1H ALO Rx#: [id number] cefTRIAXone 1,000 mg In 50 Sodium Chloride 0.9% 50 ml @ 100 mls/hr IVPB Q24H ALO Rx#:[id number] Oral 250 200 200 Tube Feeding 500 Output: Urine 802 195 8833 Other: Voiding Method Urinal Urinal Urinal - Exam PHYSICAL EXAM: VITAL SIGNS: As above GENERAL: [Sitting up in bed, no acute distress HEENT: [Pupils equal conjunctiva normal.] NECK: [Supple, no JVD] RESPIRATORY EFFORT:[Normal LUNGS: Diminished, occasional fine expiratory wheezing, no crackles, no rhonchi CARDIOVASCULAR regular S1 and S2, no gallops, no murmur, no edema GI: [Abdomen soft, nontender, positive bowel sounds.] PSYCH: [Alert and oriented -3, mood and affect normal] NEURO: No focal deficits Microbiology 11/23/16 13:05 Blood Blood Culture - Preliminary No Growth after 120 hours 11/24/16 07:41 Blood Blood Culture - Preliminary No Growth after 96 hours 11/24/16 16:45 Sputum Gram Stain - Final 11/24/16 16:45 Sputum Sputum Culture - Final Aspergillus fumigatus 11/21/16 16:16 Blood Blood Culture - Final No Growth after 144 hours 11/21/16 16:16 Blood Blood Culture Gram Stain - Final 11/21/16 16:16 Blood Blood Culture - Final Coagulase Negative Staph 11/21/16 02:10 Sputum Gram Stain - Final 11/21/16 02:10 Sputum Sputum Culture - Final 11/21/16 16:39 Blood Blood Culture - Preliminary 11/21/16 18:45 Urine,Clean Catch Urine Culture - Final - Labs CBC & Chem 7: 11/29/16 07:06 11/29/16 07:06 Labs: Abnormal Lab Results - Last 24 Hours (Table) 11/27/16 11/28/16 11/28/16 Range/Units 20:13 00:13 04:59 WBC 11.1 H (3.8-10.6) k/uL RBC 3.76 L (4.30-5.90) m/uL Hgb 11.3 L (13.0-17.5) gm/dL Hct 35.0 L (39.0-53.0) % Plt Count 135 L (150-450) k/uL Neutrophils # 10.3 H (1.3-7.7) k/uL Lymphocytes # 0.3 L (1.0-4.8) k/uL BUN (9-20) mg/dL Glucose (74-99) mg/dL POC Glucose (mg/dL) 246 H 224 H (75-99) mg/dL Calcium (8.4-10.2) mg/dL 11/28/16 11/28/16 11/28/16 Range/Units 04:59 07:41 12:33 WBC (3.8-10.6) k/uL RBC (4.30-5.90) m/uL Hgb (13.0-17.5) gm/dL Hct (39.0-53.0) % Plt Count (150-450) k/uL Neutrophils # (1.3-7.7) k/uL Lymphocytes # (1.0-4.8) k/uL BUN 40 H (9-20) mg/dL Glucose 202 H (74-99) mg/dL POC Glucose (mg/dL) 209 H 278 H (75-99) mg/dL Calcium 8.1 L (8.4-10.2) mg/dL 11/28/16 11/28/16 11/28/16 Range/Units 13:41 14:26 15:29 WBC (3.8-10.6) k/uL RBC (4.30-5.90) m/uL Hgb (13.0-17.5) gm/dL Hct (39.0-53.0) % Plt Count (150-450) k/uL Neutrophils # (1.3-7.7) k/uL Lymphocytes # (1.0-4.8) k/uL BUN (9-20) mg/dL Glucose (74-99) mg/dL POC Glucose (mg/dL) 344 H 312 H 323 H (75-99) mg/dL Calcium (8.4-10.2) mg/dL 11/28/16 11/28/16 11/28/16 Range/Units 16:13 16:46 17:41 WBC (3.8-10.6) k/uL RBC (4.30-5.90) m/uL Hgb (13.0-17.5) gm/dL Hct (39.0-53.0) % Plt Count (150-450) k/uL Neutrophils # (1.3-7.7) k/uL Lymphocytes # (1.0-4.8) k/uL BUN (9-20) mg/dL Glucose (74-99) mg/dL POC Glucose (mg/dL) 319 H 289 H 210 H (75-99) mg/dL Calcium (8.4-10.2) mg/dL Microbiology - Last 24 Hours (Table) 11/23/16 13:05 Blood Culture - Preliminary Blood No Growth after 120 hours 11/24/16 07:41 Blood Culture - Preliminary Blood No Growth after 96 hours 11/24/16 16:45 Gram Stain - Final Sputum Sputum Culture - Final Aspergillus fumigatus 11/21/16 16:16 Blood Culture - Final Blood No Growth after 144 hours Assessment and Plan Plan: 1. 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 2. Possible sepsis with tracheobronchitis with Aspergillus]. Lactic acid normalized. 3. [Possible bacteremia, initial blood culture coagulase-negative Staphylococcus -suspect contaminant, preliminary repeat negative]. 4. [Diabetes mellitus, hemoglobin A1c 7.1 uncontrolled ]. 5. [CKD, stage II, secondary to Diabetic nephropathy]. 6. [Hyperlipidemia]. 7. [Hypertension]. 8. Osteoarthritis 9. Asbestos exposure 10. Single kidney, congenital Plan: Continue on current medication regime, nebulized bronchodilators, steroids , antibiotics, monitoring and symptomatic treatment. Insulin drip initiated, close monitoring of Accu-Cheks. Patient has been cleared for transfer out of ICU per english drawer. Prognosis guarded. Further recommendations to follow. The impression and plan of care has been dictated as directed. : I performed a H&P examination of this patient and discussed the same with the dictator. I agree with the dictator's note. Any additional findings/opinions/ etc. will be noted.
--- NOTE | 2016-11-29 16:37 | P.PN ---
Subjective Principal diagnosis: COPD exacerbation Date of service 11/29/2016. Progress note being dictated for Dr. Heck Interval history: This is a 70-year-old gentleman admitted with acute COPD exacerbation, possible bacteremia and multiple other medical issues. Maintained on nebulized bronchodilators, antibiotics and steroids. Feels less short of breath today., Continues to not require BiPAP during the night. Maintaining O2 sats of 97% on 2 L nasal cannula. Maintained on insulin drip, blood sugars in the low 200s, increased to steroid scale. Denies chest pain, palpitations. Good diet intake, denies nausea or vomiting. Cultures in progress as listed below. Afebrile. Objective - Vital Signs Vital signs: Vital Signs Temp 97.7 F 11/29/16 00:24 Pulse 104 H 11/29/16 15:22 Resp 20 11/29/16 14:54 BP 194/78 11/29/16 07:00 Pulse Ox 96 11/29/16 07:03 Intake & Output 11/28/16 11/29/16 11/29/16 18:59 06:59 18:59 Intake Total 1188.598 438.578 1.083 Output Total 1000 350 Balance 188.598 88.578 1.083 Weight 83.1 kg 85 kg Intake: IV 190 220 0.9 at KVO 190 220 Intake, IV Titration 298.598 68.578 1.083 Amount Insulin Regular 100 unit 48.598 68.578 1.083 In Sodium Chloride 0.9% 100 ml @ Titrate IV .Q0M ALO Rx#:[id number] Magnesium Sulfate-D5w Pmx 200 1 gm In Dextrose/Water 1 100ml.bag @ 100 mls/hr IVPB Q1H ALO Rx#: [id number] cefTRIAXone 1,000 mg In 50 Sodium Chloride 0.9% 50 ml @ 100 mls/hr IVPB Q24H ALO Rx#:[id number] Oral 200 150 Tube Feeding 500 Output: Urine 1000 350 Other: Voiding Method Urinal Urinal Urinal - Exam PHYSICAL EXAM: VITAL SIGNS: As above GENERAL: [Sitting up in bed, no acute distress HEENT: [Pupils equal conjunctiva normal.] NECK: [Supple, no JVD] RESPIRATORY EFFORT:[Normal LUNGS: Diminished, occasional fine expiratory wheezing, no crackles, no rhonchi CARDIOVASCULAR regular S1 and S2, no gallops, no murmur, no edema GI: [Abdomen soft, nontender, positive bowel sounds.] PSYCH: [Alert and oriented -3, mood and affect normal] NEURO: No focal deficits Microbiology 11/23/16 13:05 Blood Blood Culture - Preliminary No Growth after 120 hours 11/24/16 07:41 Blood Blood Culture - Preliminary No Growth after 96 hours 11/24/16 16:45 Sputum Gram Stain - Final 11/24/16 16:45 Sputum Sputum Culture - Final Aspergillus fumigatus 11/21/16 16:16 Blood Blood Culture - Final No Growth after 144 hours 11/21/16 16:16 Blood Blood Culture Gram Stain - Final 11/21/16 16:16 Blood Blood Culture - Final Coagulase Negative Staph 11/21/16 02:10 Sputum Gram Stain - Final 11/21/16 02:10 Sputum Sputum Culture - Final 11/21/16 16:39 Blood Blood Culture - Preliminary 11/21/16 18:45 Urine,Clean Catch Urine Culture - Final - Labs CBC & Chem 7: 11/29/16 07:06 11/29/16 07:06 Labs: Abnormal Lab Results - Last 24 Hours (Table) 11/28/16 11/28/16 11/28/16 Range/Units 16:46 17:41 19:35 RBC (4.30-5.90) m/uL Hgb (13.0-17.5) gm/dL Hct (39.0-53.0) % MCHC (31.0-37.0) g/dL Plt Count (150-450) k/uL Neutrophils # (1.3-7.7) k/uL Lymphocytes # (1.0-4.8) k/uL BUN (9-20) mg/dL Glucose (74-99) mg/dL POC Glucose (mg/dL) 289 H 210 H 212 H (75-99) mg/dL Calcium (8.4-10.2) mg/dL 11/28/16 11/28/16 11/29/16 Range/Units 21:05 23:04 01:09 RBC (4.30-5.90) m/uL Hgb (13.0-17.5) gm/dL Hct (39.0-53.0) % MCHC (31.0-37.0) g/dL Plt Count (150-450) k/uL Neutrophils # (1.3-7.7) k/uL Lymphocytes # (1.0-4.8) k/uL BUN (9-20) mg/dL Glucose (74-99) mg/dL POC Glucose (mg/dL) 196 H 211 H 171 H (75-99) mg/dL Calcium (8.4-10.2) mg/dL 11/29/16 11/29/16 11/29/16 Range/Units 03:27 04:56 06:26 RBC (4.30-5.90) m/uL Hgb (13.0-17.5) gm/dL Hct (39.0-53.0) % MCHC (31.0-37.0) g/dL Plt Count (150-450) k/uL Neutrophils # (1.3-7.7) k/uL Lymphocytes # (1.0-4.8) k/uL BUN (9-20) mg/dL Glucose (74-99) mg/dL POC Glucose (mg/dL) 130 H 107 H 128 H (75-99) mg/dL Calcium (8.4-10.2) mg/dL 11/29/16 11/29/16 11/29/16 Range/Units 07:06 07:06 07:25 RBC 3.80 L (4.30-5.90) m/uL Hgb 11.2 L (13.0-17.5) gm/dL Hct 36.3 L (39.0-53.0) % MCHC 30.9 L (31.0-37.0) g/dL Plt Count 133 L (150-450) k/uL Neutrophils # 9.4 H (1.3-7.7) k/uL Lymphocytes # 0.2 L (1.0-4.8) k/uL BUN 32 H (9-20) mg/dL Glucose 147 H (74-99) mg/dL POC Glucose (mg/dL) 150 H (75-99) mg/dL Calcium 8.2 L (8.4-10.2) mg/dL 11/29/16 11/29/16 11/29/16 Range/Units 09:30 11:25 12:37 RBC (4.30-5.90) m/uL Hgb (13.0-17.5) gm/dL Hct (39.0-53.0) % MCHC (31.0-37.0) g/dL Plt Count (150-450) k/uL Neutrophils # (1.3-7.7) k/uL Lymphocytes # (1.0-4.8) k/uL BUN (9-20) mg/dL Glucose (74-99) mg/dL POC Glucose (mg/dL) 281 H 224 H 143 H (75-99) mg/dL Calcium (8.4-10.2) mg/dL Microbiology - Last 24 Hours (Table) 11/23/16 13:05 Blood Culture - Final Blood No Growth after 144 hours 11/24/16 07:41 Blood Culture - Preliminary Blood No Growth after 120 hours Assessment and Plan Plan: 1. 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 2. Possible sepsis with tracheobronchitis with Aspergillus]. Lactic acid normalized. 3. [Possible bacteremia, initial blood culture coagulase-negative Staphylococcus -suspect contaminant, preliminary repeat negative]. 4. [Diabetes mellitus, hemoglobin A1c 7.1 uncontrolled ]. 5. [CKD, stage II, secondary to Diabetic nephropathy]. 6. [Hyperlipidemia]. 7. [Hypertension]. 8. Osteoarthritis 9. Asbestos exposure 10. Single kidney, congenital Plan: Continue on current medication regime, nebulized bronchodilators, steroids , antibiotics, monitoring and symptomatic treatment. Maintain Insulin drip, steroids scalp initiated, while on IV push steroids. close monitoring of Accu- Cheks. Tapering of steroids as per pulmonary. PT/OT, increase ambulation as tolerated .Prognosis guarded. Further recommendations to follow. The impression and plan of care has been dictated as directed. : I performed a H&P examination of this patient and discussed the same with the dictator. I agree with the dictator's note. Any additional findings/opinions/ etc. will be noted.
[2016-11-29 16:59] LABS: Glucose,Whole Blood 238 mg/dL (75-99)
[2016-11-29 20:12] LABS: Glucose,Whole Blood 294 mg/dL (75-99)
[2016-11-29] MEDS: ZOLPIDEM 5 MG TAB PO PRN (20:19)
--- NOTE | 2016-11-29 22:11 | PN ---
DATE OF SERVICE: 11/29/2016 This 70-year-old gentleman was admitted with COPD acute exacerbation , has continued to be extremely short of breath. The patient is on high-dose IV steroids at this time. The patient was transferred out of the ICU. The patient is on bronchodilators and empiric antibiotics. Seen and evaluated the patient along with nurse practitioner. Please refer to the nurse practitioner notes and impression documented as a scribe for further information. Closely follow with Dr. Mcclellna. Further recommendations to follow.
[2016-11-30] MEDS: methylPREDNISolone SOD SUCCI 125 MG/2 ML VIAL IV SCH ×3 (05:16→18:39)
[2016-11-30] MEDS: IPRATROPIUM-ALBUTEROL 3 ML NEB INHALATION SCH ×4 (06:58→20:51)
[2016-11-30] MEDS: BUDESONIDE 1 MG/2 ML NEBU INHALATION SCH ×2 (06:58→20:51)
[2016-11-30] MEDS: FORMOTEROL FUMARATE 20 MCG/2 ML NEBU INHALATION SCH ×2 (06:58→20:51)
[2016-11-30 07:24] LABS: Glucose,Whole Blood 256 mg/dL (75-99)
[2016-11-30] MEDS: ALPRAZolam 0.5 MG TAB PO PRN ×2 (08:08→21:19)
[2016-11-30] MEDS: ATORVASTATIN 20 MG TAB PO SCH (08:09)
[2016-11-30] MEDS: INSULIN LISPRO (humaLOG) 300 UNIT/3 ML VIAL SQ SCH ×3 (08:09→17:41)
[2016-11-30] MEDS: PANTOPRAZOLE 40 MG TABLET PO SCH (08:09)
[2016-11-30] MEDS: ASPIRIN 81 MG CHEW PO SCH (08:09)
[2016-11-30] MEDS: BENZONATATE 100 MG CAP PO SCH ×3 (08:10→21:19)
[2016-11-30] MEDS: AZITHROMYCIN 500 MG TAB PO SCH (08:10)
[2016-11-30] MEDS: HEPARIN SODIUM,PORCINE 5,000 UNIT/ML 1 ML VIAL SQ SCH ×2 (08:13→16:03)
[2016-11-30] MEDS: DOCUSATE 100 MG CAP PO SCH ×2 (08:13→21:19)
[2016-11-30] MEDS: ITRACONAZOLE 100 MG CAP PO SCH (08:13)
[2016-11-30] MEDS: LISINOPRIL 20 MG TAB PO SCH (08:13)
[2016-11-30] MEDS: FUROSEMIDE 20 MG TAB PO SCH (08:13)
[2016-11-30] MEDS: LORATADINE 10 MG TAB PO SCH (08:14)
[2016-11-30] MEDS: SERTRALINE 50 MG TAB PO SCH (08:14)
[2016-11-30] MEDS: HYDROcodone/APAP 10-325MG 1 EACH TAB PO PRN ×3 (08:16→18:43)
[2016-11-30] MEDS: CHLORPHEN-HYDROcod 8-10mg/5ml 5 ML ORAL.SYRG PO SCH ×2 (08:16→21:19)
[2016-11-30 08:22] LABS: Basophils % (A) 0 %; CH 29.6; CHCM 31.8; Eosinophils % (A) 0 %; HCT 33.2 % (39.0-53.0); HDW 2.16; HGB 10.7 gm/dL (13.0-17.5); Luc # (Auto) 0.04; Luc % (Auto) 0; Lymphocytes # (A) 0.2 k/uL (1.0-4.8); Lymphocytes % (A) 2 %; MCH 30.2 pg (25.0-35.0); MCHC 32.3 g/dL (31.0-37.0); MCV 93.5 fL (80.0-100.0); Mean Platelet Volume 6.9; Monocytes # (A) 0.4 k/uL (0-1.0); Monocytes % (A) 4 %; Neutrophils # (A) 8.1 k/uL (1.3-7.7); Neutrophils % (A) 93 %; RBC 3.55 m/uL (4.30-5.90); RDW 13.9 % (11.5-15.5); WBC 8.8 k/uL (3.8-10.6); WBC (Perox) 9.37
[2016-11-30 08:35] LABS: Anion Gap 9 mmol/L; Blood Urea Nitrogen 37 mg/dL (9-20); Calcium 8.4 mg/dL (8.4-10.2); Carbon Dioxide 23 mmol/L (22-30); Chloride 109 mmol/L (98-107); Glucose 261 mg/dL (74-99); Magnesium 2.1 mg/dL (1.6-2.3); Non-African American GFR(MDRD) >60 (>60 ml/min/1.73 sqM); Phosphorous 3.8 mg/dL (2.5-4.5); Potassium 4.3 mmol/L (3.5-5.1); Sodium 141 mmol/L (137-145)
[2016-11-30 11:19] LABS: Glucose,Whole Blood 329 mg/dL (75-99)
[2016-11-30] MEDS: INSULIN REGULAR 100 UNIT in SODIUM CHLORIDE 0.9% 100 ML IV SCH (13:09)
[2016-11-30 13:26] LABS: Glucose,Whole Blood 308 mg/dL (75-99)
[2016-11-30 13:29] LABS: Glucose,Whole Blood 290 mg/dL (75-99)
[2016-11-30 14:02] LABS: Glucose,Whole Blood 285 mg/dL (75-99)
--- NOTE | 2016-11-30 14:25 | P.PN ---
Subjective Principal diagnosis: Acute respiratory failure secondary to COPD and pneumonia involving the left lower lobe and right midlung 70-year-old male patient with advanced oxygen-dependent COPD was typically on 3 L of Oxymizer by nasal cannula. The patient has an FEV1 of 47% of predicted. The patient also has history of non-small cell lung cancer that was treated with radiation therapy to the chest. 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 A subsequent CAT scan of the chest from June 2015 had shown no evidence of any recurrence. Following that, the patient had another CAT scan of the chest on 10/21/2016 and there were stable postradiation changes in the right lung. There was also volume loss in the right lung. There was some limited interstitial fibrosis condition in the right lung. There is advanced and physical this changes bilaterally. No other abnormalities was noted. The patient is admitted currently for increased shortness of breath typical of an acute COPD exacerbation. He has increased cough chest tightness or wheezing. No chest pain. No fever or chills. No hemoptysis. No pleurisy. No swelling in the lower extremities. No change in mental status. His chest x-ray showing some patchy atelectatic changes and volume loss in the right hemithorax which is unchanged from previous chest x-rays and this is probably related to previous radiation therapy. The patient also has a neurostimulator in the mid thoracic spine and the left lung is essentially clear. On 11/23/2016, the patient essentially the same. He still having shortness of breath. COPD still on the ongoing exacerbation. Meanwhile, the patient was noted to have an elevated lactic acid level. Blood cultures showing gram- positive cocci and for that reason the patient was given a dose of vancomycin. He is also receiving a liter of IV fluid bolus. No hypotension. No fever. No significant leukocytosis. Blood cultures will be repeated. This can as well be a contaminant. Nevertheless, the elevation of lactic acid level is to be monitored and followed up. On 11/24/2016, the patient is doing slightly better. His less short of breath compared to yesterday. Lactic acid levels are dropping and is down to 2.4. Patient was given a dose of vancomycin. The subsequent blood culture showed gram-negative is negative staph. The chest x-ray remains free of any pneumonia. His chronic emphysematous changes with right-sided scarring and volume loss. No suspicious pulmonary infiltrates seen. On 11/25/2016, patient was noted to have worsening shortness of breath, and worsening chest x-ray with worsening left lower lobe pneumonia. Patient was noted to be in moderate respiratory distress, hence we have arranged for the patient to be transferred to the ICU and placed on BiPAP. In the meantime we have continued his antibiotics coverage as already started by Dr. Fernandez. Patient is also on proper bronchodilators. Blood cultures on admission showed contamination with coagulase-negative staph aureus. Follow-up blood cultures remained negative. Sputum is showing gram-positive cocci and few yeast. Final report is pending. On 11/26/2016, patient seems to be doing better, breathing easier, he is now back on nasal cannula, responded well to bronchodilators, antibiotics, steroids , and I believe diuretics made a significant improvement in his overall pulmonary status. Patient did not require BiPAP overnight, and he seems to be much more comfortable today, he sounds much clearer today compared to yesterday. CT of the chest was reviewed labs were reviewed and his WBC count is 9.3 today. Electrolytes and basic metabolic profile are normal. Reevaluated on 11/27/2016, continues to do well, patient was on BiPAP early this morning, and he would be switched back to nasal cannula. Chest x-ray continues to show improvement and I plan to transfer the patient out of the ICU today. On physical examination, continues to sound relatively clear, renal profile showed slight prerenal azotemia, hence I will cut down on the Lasix to 20 mg daily, and we'll continue IV fluid at minimal. CBC is relatively unremarkable. Reevaluated on 11/28/2016, patient is continuing to do well, did not use his BiPAP last night, continues to have intermittent wheezing on physical examination. But overall the patient has made a significant improvement over the last couple of days in the ICU. CBC was reviewed. Electrolytes were noted. Reevaluated on 11/29/2016, steadily improving but slowly. Less cough and less wheezing less shortness of breath. Did not use his BiPAP overnight. Physical examination showed diminished breath sounds at the bases, no rhonchi, no wheezes. Patient was reevaluated on 11/30/2016, his main complaint is shortness of breath with any activity. But no cough, no fever, no chills, no wheezing, no chest pain. CT of the chest on admission failed to show thromboembolic disease. Patient is known to have history of severe underlying COPD in addition to his previous history of lung cancer requiring chemo and radiation therapy. Objective - Vital Signs Vital signs: Vital Signs Temp 97.7 F 11/30/16 07:00 Pulse 90 11/30/16 11:14 Resp 20 11/30/16 08:00 BP 139/74 11/30/16 07:00 Pulse Ox 97 11/30/16 07:01 Intake & Output 11/29/16 11/30/16 11/30/16 18:59 06:59 18:59 Intake Total 1.083 14.483 Output Total 500 Balance 1.083 -500 14.483 Weight 85.5 kg Intake: Intake, IV Titration 1.083 14.483 Amount Insulin Regular 100 unit 1.083 In Sodium Chloride 0.9% 100 ml @ Titrate IV .Q0M [facility] Rx#:[id number] Insulin Regular 100 unit 14.483 In Sodium Chloride 0.9% 100 ml @ Titrate IV .Q0M [facility] Rx#:[id number] Output: Urine 500 Other: Voiding Method Urinal Urinal Urinal - Exam Physical Exam: Revealed a 70-year-old white male in no form of respiratory distress HEENT:[Neck is supple.] [No neck masses.] [No thyromegaly.] [No JVD.] Chest: [Diminished breath sound bilaterally, no rhonchi, no wheezes Cardiac Exam: [Normal S1 and S2, no S3 gallop, no murmur.] Abdomen: [Soft, nontender, no megaly, no rebound, no guarding, normal bowel sounds.] Extremities: [No clubbing, no edema, no cyanosis.] Neurological Exam: [No focal neurologic deficit.] - Labs CBC & Chem 7: 11/30/16 07:40 11/30/16 07:40 Labs: Abnormal Lab Results - Last 24 Hours (Table) 11/29/16 11/29/16 11/30/16 Range/Units 16:58 20:09 07:00 RBC (4.30-5.90) m/uL Hgb (13.0-17.5) gm/dL Hct (39.0-53.0) % Plt Count (150-450) k/uL Neutrophils # (1.3-7.7) k/uL Lymphocytes # (1.0-4.8) k/uL Chloride (98-107) mmol/L BUN (9-20) mg/dL Glucose (74-99) mg/dL POC Glucose (mg/dL) 238 H 294 H 256 H (75-99) mg/dL 11/30/16 11/30/16 11/30/16 Range/Units 07:40 07:40 11:15 RBC 3.55 L (4.30-5.90) m/uL Hgb 10.7 L (13.0-17.5) gm/dL Hct 33.2 L (39.0-53.0) % Plt Count 119 L (150-450) k/uL Neutrophils # 8.1 H (1.3-7.7) k/uL Lymphocytes # 0.2 L (1.0-4.8) k/uL Chloride 109 H (98-107) mmol/L BUN 37 H (9-20) mg/dL Glucose 261 H (74-99) mg/dL POC Glucose (mg/dL) 329 H (75-99) mg/dL 11/30/16 11/30/16 11/30/16 Range/Units 13:06 13:27 14:00 RBC (4.30-5.90) m/uL Hgb (13.0-17.5) gm/dL Hct (39.0-53.0) % Plt Count (150-450) k/uL Neutrophils # (1.3-7.7) k/uL Lymphocytes # (1.0-4.8) k/uL Chloride (98-107) mmol/L BUN (9-20) mg/dL Glucose (74-99) mg/dL POC Glucose (mg/dL) 308 H 290 H 285 H (75-99) mg/dL Microbiology - Last 24 Hours (Table) 11/24/16 07:41 Blood Culture - Final Blood No Growth after 144 hours 11/23/16 13:05 Blood Culture - Final Blood No Growth after 144 hours Assessment and Plan Plan: Acute hypoxic respiratory failure secondary to severe COPD, history of lung cancer, and possible right midlung pneumonia or postinflammatory changes in the right midlung area could also be related to previous radiation to the right midlung. The left lower lobe changes have significantly improved hence I believe they were most likely related to atelectasis. Continues to have shortness of breath with any activity. And I believe the best option for this patient will be to consider rehab referral in the next couple of days. 2 history of squamous cell carcinoma of the right lung, status post chemoradiation therapy in 2012. Patient remains in remission. Last CT of the chest was done in September of 2016. 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 Patient's follow-up blood cultures remain negative. Plan Continue present treatment plan including bronchodilators antibiotics antifungal , discharge planning in the next 2-3 days. I will strongly recommend rehab facility. Patient will be advised to ambulate and continue O2. Continue bronchodilators. Time with Patient: Less than 30
[2016-11-30 14:58] LABS: Glucose,Whole Blood 238 mg/dL (75-99)
[2016-11-30 17:37] LABS: Glucose,Whole Blood 78 mg/dL (75-99)
[2016-11-30 18:30] LABS: Glucose,Whole Blood 158 mg/dL (75-99)
[2016-11-30 19:53] LABS: Glucose,Whole Blood 189 mg/dL (75-99)
[2016-11-30 22:07] LABS: Glucose,Whole Blood 125 mg/dL (75-99)
[2016-11-30 23:10] LABS: Glucose,Whole Blood 136 mg/dL (75-99)
[2016-12-01] MEDS: methylPREDNISolone SOD SUCCI 125 MG/2 ML VIAL IV SCH ×4 (00:53→18:18)
[2016-12-01] MEDS: HEPARIN SODIUM,PORCINE 5,000 UNIT/ML 1 ML VIAL SQ SCH ×3 (00:54→16:57)
[2016-12-01 01:08] LABS: Glucose,Whole Blood 142 mg/dL (75-99)
[2016-12-01] MEDS: INSULIN REGULAR 100 UNIT in SODIUM CHLORIDE 0.9% 100 ML IV SCH (02:15)
[2016-12-01 03:07] LABS: Glucose,Whole Blood 117 mg/dL (75-99)
[2016-12-01 04:00] LABS: Glucose,Whole Blood 132 mg/dL (75-99)
[2016-12-01] MEDS: ALPRAZolam 0.5 MG TAB PO PRN ×3 (05:08→21:15)
[2016-12-01] MEDS: HYDROcodone/APAP 10-325MG 1 EACH TAB PO PRN ×4 (05:08→21:15)
[2016-12-01 06:15] LABS: Glucose,Whole Blood 120 mg/dL (75-99)
[2016-12-01] MEDS: FORMOTEROL FUMARATE 20 MCG/2 ML NEBU INHALATION SCH ×2 (06:55→19:40)
[2016-12-01] MEDS: IPRATROPIUM-ALBUTEROL 3 ML NEB INHALATION SCH ×4 (06:55→19:40)
[2016-12-01] MEDS: BUDESONIDE 1 MG/2 ML NEBU INHALATION SCH ×2 (06:55→19:40)
[2016-12-01 07:08] LABS: Glucose,Whole Blood 128 mg/dL (75-99)
[2016-12-01] MEDS: INSULIN LISPRO (humaLOG) 300 UNIT/3 ML VIAL SQ SCH ×3 (07:42→17:57)
[2016-12-01] MEDS: ATORVASTATIN 20 MG TAB PO SCH (07:50)
[2016-12-01] MEDS: ITRACONAZOLE 100 MG CAP PO SCH (07:50)
[2016-12-01] MEDS: BENZONATATE 100 MG CAP PO SCH ×3 (07:50→21:16)
[2016-12-01] MEDS: AZITHROMYCIN 500 MG TAB PO SCH (07:50)
[2016-12-01] MEDS: LISINOPRIL 20 MG TAB PO SCH (07:51)
[2016-12-01] MEDS: FUROSEMIDE 20 MG TAB PO SCH (07:51)
[2016-12-01] MEDS: SERTRALINE 50 MG TAB PO SCH (07:51)
[2016-12-01] MEDS: PANTOPRAZOLE 40 MG TABLET PO SCH (07:51)
[2016-12-01] MEDS: DOCUSATE 100 MG CAP PO SCH ×2 (07:52→21:15)
[2016-12-01] MEDS: LORATADINE 10 MG TAB PO SCH (07:52)
[2016-12-01] MEDS: ASPIRIN 81 MG CHEW PO SCH (07:53)
[2016-12-01] MEDS: CHLORPHEN-HYDROcod 8-10mg/5ml 5 ML ORAL.SYRG PO SCH ×2 (07:57→21:15)
[2016-12-01 09:15] LABS: Glucose,Whole Blood 287 mg/dL (75-99)
[2016-12-01] MEDS: IPRATROPIUM-ALBUTEROL 3 ML NEB INHALATION PRN (10:08)
[2016-12-01 11:07] LABS: Glucose,Whole Blood 308 mg/dL (75-99)
[2016-12-01] MEDS ORDERED: RX INFO: IV CONTRAST WAS GIVEN 1 EACH MISC MISCELLANE PRN (11:48)
--- NOTE | 2016-12-01 12:01 | PN ---
DATE OF SERVICE: 11/30/2016 This 70-year-old gentleman was admitted with COPD acute exacerbation being closely monitored. The patient still has shortness. No chest pain, no palpitations. No fever. Dr. Mcclellan is following the patient closely. On exam, alert and oriented x3. Pulse is 102. Blood pressure 131/75, respirations 20, temperature 97.4, pulse ox 97% on 5 liters. HEENT: Conjunctivae normal. NECK: No jugular venous distention. CARDIOVASCULAR: S1 and S2, muffled. RESPIRATORY: Breath sounds diminished at the bases. Bilateral scattered rhonchi and crackles. ABDOMEN: Soft, nontender. LEGS: No edema, no swelling. NERVOUS SYSTEM: No focal deficits. LABS: WBC 8.8, hemoglobin is 10.7. Accu-Cheks noted. ASSESSMENT: 1. Chronic obstructive pulmonary disease, acute exacerbation with acute hypoxic respiratory failure with left lower lobe pneumonia, possibly gram-negative. 2. History of lung cancer, squamous cell carcinoma of the right lung with remission. Chemoradiation 2012. 3. Possible sepsis. 4. Diabetes mellitus uncontrolled. 5. 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 6. Hyperlipidemia. 7. Hypertension. 8. History of degenerative joint disease. 9. Asbestos exposure. 10. Single kidney, congenital. RECOMMENDATION AND DISCUSSION: I recommend to continue current medications, continue with monitoring, continue symptomatic treatment. Otherwise at this time I recommend to continue with antibiotics, continue with bronchodilators. Closely follow with Pulmonary. Guarded prognosis. Further recommendations to follow.
[2016-12-01 12:12] LABS: Glucose,Whole Blood 260 mg/dL (75-99)
[2016-12-01 13:23] LABS: Glucose,Whole Blood 178 mg/dL (75-99)
[2016-12-01 14:20] LABS: Glucose,Whole Blood 148 mg/dL (75-99)
--- NOTE | 2016-12-01 15:32 | P.PN ---
Subjective Principal diagnosis: Acute respiratory failure secondary to COPD and pneumonia involving the left lower lobe and right midlung 70-year-old male patient with advanced oxygen-dependent COPD was typically on 3 L of Oxymizer by nasal cannula. The patient has an FEV1 of 47% of predicted. The patient also has history of non-small cell lung cancer that was treated with radiation therapy to the chest. 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 A subsequent CAT scan of the chest from June 2015 had shown no evidence of any recurrence. Following that, the patient had another CAT scan of the chest on 10/21/2016 and there were stable postradiation changes in the right lung. There was also volume loss in the right lung. There was some limited interstitial fibrosis condition in the right lung. There is advanced and physical this changes bilaterally. No other abnormalities was noted. The patient is admitted currently for increased shortness of breath typical of an acute COPD exacerbation. He has increased cough chest tightness or wheezing. No chest pain. No fever or chills. No hemoptysis. No pleurisy. No swelling in the lower extremities. No change in mental status. His chest x-ray showing some patchy atelectatic changes and volume loss in the right hemithorax which is unchanged from previous chest x-rays and this is probably related to previous radiation therapy. The patient also has a neurostimulator in the mid thoracic spine and the left lung is essentially clear. On 11/23/2016, the patient essentially the same. He still having shortness of breath. COPD still on the ongoing exacerbation. Meanwhile, the patient was noted to have an elevated lactic acid level. Blood cultures showing gram- positive cocci and for that reason the patient was given a dose of vancomycin. He is also receiving a liter of IV fluid bolus. No hypotension. No fever. No significant leukocytosis. Blood cultures will be repeated. This can as well be a contaminant. Nevertheless, the elevation of lactic acid level is to be monitored and followed up. On 11/24/2016, the patient is doing slightly better. His less short of breath compared to yesterday. Lactic acid levels are dropping and is down to 2.4. Patient was given a dose of vancomycin. The subsequent blood culture showed gram-negative is negative staph. The chest x-ray remains free of any pneumonia. His chronic emphysematous changes with right-sided scarring and volume loss. No suspicious pulmonary infiltrates seen. On 11/25/2016, patient was noted to have worsening shortness of breath, and worsening chest x-ray with worsening left lower lobe pneumonia. Patient was noted to be in moderate respiratory distress, hence we have arranged for the patient to be transferred to the ICU and placed on BiPAP. In the meantime we have continued his antibiotics coverage as already started by Dr. Fernandez. Patient is also on proper bronchodilators. Blood cultures on admission showed contamination with coagulase-negative staph aureus. Follow-up blood cultures remained negative. Sputum is showing gram-positive cocci and few yeast. Final report is pending. On 11/26/2016, patient seems to be doing better, breathing easier, he is now back on nasal cannula, responded well to bronchodilators, antibiotics, steroids , and I believe diuretics made a significant improvement in his overall pulmonary status. Patient did not require BiPAP overnight, and he seems to be much more comfortable today, he sounds much clearer today compared to yesterday. CT of the chest was reviewed labs were reviewed and his WBC count is 9.3 today. Electrolytes and basic metabolic profile are normal. Reevaluated on 11/27/2016, continues to do well, patient was on BiPAP early this morning, and he would be switched back to nasal cannula. Chest x-ray continues to show improvement and I plan to transfer the patient out of the ICU today. On physical examination, continues to sound relatively clear, renal profile showed slight prerenal azotemia, hence I will cut down on the Lasix to 20 mg daily, and we'll continue IV fluid at minimal. CBC is relatively unremarkable. Reevaluated on 11/28/2016, patient is continuing to do well, did not use his BiPAP last night, continues to have intermittent wheezing on physical examination. But overall the patient has made a significant improvement over the last couple of days in the ICU. CBC was reviewed. Electrolytes were noted. Reevaluated on 11/29/2016, steadily improving but slowly. Less cough and less wheezing less shortness of breath. Did not use his BiPAP overnight. Physical examination showed diminished breath sounds at the bases, no rhonchi, no wheezes. Patient was reevaluated on 11/30/2016, his main complaint is shortness of breath with any activity. But no cough, no fever, no chills, no wheezing, no chest pain. CT of the chest on admission failed to show thromboembolic disease. Patient is known to have history of severe underlying COPD in addition to his previous history of lung cancer requiring chemo and radiation therapy. Reevaluated on 12/01/2016, patient is becoming more and more short of breath with any activity or any exertion. He told me today that he never felt that bad also on physical examination, he has mostly diminished breath sounds, no crackles, no rhonchi, no wheezes. I went back to his previous CT of the chest, and it clearly showed no evidence of thromboembolic disease. Considering his profound symptoms, I will go ahead and recommend another CT of the chest to be done today/CT angiogram. Objective - Vital Signs Vital signs: Vital Signs Temp 97.8 F 12/01/16 14:44 Pulse 110 H 12/01/16 14:44 Resp 20 12/01/16 14:44 BP 176/79 12/01/16 14:44 Pulse Ox 92 L 12/01/16 14:44 Intake & Output 11/30/16 12/01/16 12/01/16 18:59 06:59 18:59 Intake Total 43.983 398.000 25.251 Output Total 1000 400 Balance -956.017 -2.000 25.251 Weight 86.5 kg Intake: IV 160 0.9 at KVO 160 Intake, IV Titration 43.983 38.000 25.251 Amount Insulin Regular 100 unit 43.983 38.000 25.251 In Sodium Chloride 0.9% 100 ml @ Titrate IV .Q0M [facility] Rx#:[id number] Oral 200 Output: Urine 1000 400 Other: Voiding Method Urinal Urinal Urinal # Voids 1 # Bowel Movements 1 - Exam Physical Exam: Revealed a 70-year-old white male in no form of respiratory distress HEENT:[Neck is supple.] [No neck masses.] [No thyromegaly.] [No JVD.] Chest: [Diminished breath sound bilaterally, no rhonchi, no wheezes Cardiac Exam: [Normal S1 and S2, no S3 gallop, no murmur.] Abdomen: [Soft, nontender, no megaly, no rebound, no guarding, normal bowel sounds.] Extremities: [No clubbing, no edema, no cyanosis.] Neurological Exam: [No focal neurologic deficit.] - Labs CBC & Chem 7: 11/30/16 07:40 11/30/16 07:40 Labs: Abnormal Lab Results - Last 24 Hours (Table) 11/30/16 11/30/16 11/30/16 Range/Units 18:28 19:51 22:06 POC Glucose (mg/dL) 158 H 189 H 125 H (75-99) mg/dL 11/30/16 12/01/16 12/01/16 Range/Units 22:58 00:56 03:02 POC Glucose (mg/dL) 136 H 142 H 117 H (75-99) mg/dL 12/01/16 12/01/16 12/01/16 Range/Units 03:58 06:03 06:56 POC Glucose (mg/dL) 132 H 120 H 128 H (75-99) mg/dL 12/01/16 12/01/16 12/01/16 Range/Units 09:03 11:06 12:03 POC Glucose (mg/dL) 287 H 308 H 260 H (75-99) mg/dL 12/01/16 12/01/16 Range/Units 13:21 14:18 POC Glucose (mg/dL) 178 H 148 H (75-99) mg/dL Microbiology - Last 24 Hours (Table) 11/24/16 07:41 Blood Culture - Final Blood No Growth after 144 hours Assessment and Plan Plan: Acute hypoxic respiratory failure secondary to severe COPD, history of lung cancer, and possible right midlung pneumonia or postinflammatory changes in the right midlung area could also be related to previous radiation to the right midlung. The left lower lobe changes have significantly improved hence I believe they were most likely related to atelectasis. Continues to have shortness of breath with any activity. And I believe the best option for this patient will be to consider rehab referral in the next couple of days. 2 history of squamous cell carcinoma of the right lung, status post chemoradiation therapy in 2012. Patient remains in remission. Last CT of the chest was done in September of 2016. 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 Plan Continue present treatment plan including bronchodilators antibiotics discontinue antifungal therapy since the patient did not improve much with adding itraconazole. discharge planning in the next 2-3 days. I will strongly recommend rehab facility. Patient will be advised to ambulate and continue O2. Continue bronchodilators. Time with Patient: Less than 30
[2016-12-01 15:41] LABS: Glucose,Whole Blood 121 mg/dL (75-99)
--- NOTE | 2016-12-01 16:11 | CT ---
EXAMINATION TYPE: CT chest angio for PE DATE OF EXAM: 12/01/2016 3:29 PM COMPARISON: 11/25/2016 and 10/17/2015. HISTORY: 70-year-old male with acute exacerbation of COPD CT DLP: 555 mGycm Automated exposure control for dose reduction was used. TECHNIQUE: CT chest for pulmonary embolism performed with with IV Contrast, patient injected with 100 ml mL of Omnipaque 350. Coronal and sagittal MIP reconstructions performed. FINDINGS: The heart is normal size with small left lateral pericardial effusion. Coronary vessel calcifications are present in remarkable for coronary artery disease. Aorta is elongated but normal caliber with mild atherosclerotic arch calcifications and conventional arch vessel branching anatomy. Satisfactory opacification of the pulmonary arterial system without evidence for pulmonary embolus. There is rightward cardiomediastinal shift similar to prior exam with chronic volume loss and consoli dation involving most of the right upper lobe and superior segment of the right lower lobe. There is a trace right-sided pleural effusion decreased from 11/25/2016. Upper lung emphysematous annita nges and some scattered bulla and blebs are unchanged. A large subpleural pulmonary nodule in the posteromedial left lower lobe measures 2.0 cm, not signifi cantly changed from 11/25/2016 but is noted to be new from 10/17/2015. A small 1 cm patch of groundglass within the lateral left liver lobe axial image 93 is new. Visualized upper abdomen shows surgical clips at the GE junction and an empty left renal fossa. Bones: Spinal stimulator array centered along the mid thoracic spinal canal. No osseous destructive p rocess. IMPRESSION: 1. No evidence for pulmonary embolus. 2. A new small 1 cm patch of groundglass in the lateral left lower lobe could represent a small infec tious/inflammatory focus. No other acute pulmonary process seen. 3. Trace right pleural effusion, decreased from 11/25/2016 but with a stable large 2.0 cm posterior l eft lower lobe pulmonary nodule which was not present on 10/17/2015. Metastatic disease is not exclud ed at this time. 4. COPD and suspected chronic posttreatment changes with chronic volume loss and consolidation involv ing the right upper lobe and superior segment right lower lobe. 5. The left kidney is absent.
[2016-12-01 16:53] LABS: Glucose,Whole Blood 118 mg/dL (75-99)
[2016-12-01 17:43] LABS: Glucose,Whole Blood 145 mg/dL (75-99)
[2016-12-01 19:21] LABS: Glucose,Whole Blood 177 mg/dL (75-99)
[2016-12-01 21:52] LABS: Glucose,Whole Blood 155 mg/dL (75-99)
[2016-12-01 23:56] LABS: Glucose,Whole Blood 115 mg/dL (75-99)
[2016-12-02 00:58] LABS: Glucose,Whole Blood 122 mg/dL (75-99)
[2016-12-02] MEDS: methylPREDNISolone SOD SUCCI 125 MG/2 ML VIAL IV SCH ×3 (01:01→13:05)
[2016-12-02] MEDS: HEPARIN SODIUM,PORCINE 5,000 UNIT/ML 1 ML VIAL SQ SCH ×3 (01:06→16:06)
[2016-12-02 02:06] LABS: Glucose,Whole Blood 122 mg/dL (75-99)
[2016-12-02 03:08] LABS: Glucose,Whole Blood 151 mg/dL (75-99)
[2016-12-02 04:17] LABS: Glucose,Whole Blood 161 mg/dL (75-99)
[2016-12-02 05:55] LABS: Glucose,Whole Blood 150 mg/dL (75-99)
[2016-12-02] MEDS: FORMOTEROL FUMARATE 20 MCG/2 ML NEBU INHALATION SCH ×2 (06:45→21:33)
[2016-12-02] MEDS: IPRATROPIUM-ALBUTEROL 3 ML NEB INHALATION SCH ×4 (06:45→21:33)
[2016-12-02] MEDS: BUDESONIDE 1 MG/2 ML NEBU INHALATION SCH ×2 (06:45→21:33)
[2016-12-02 07:14] LABS: Glucose,Whole Blood 129 mg/dL (75-99)
[2016-12-02 07:48] LABS: Glucose,Whole Blood 139 mg/dL (75-99)
[2016-12-02] MEDS: INSULIN LISPRO (humaLOG) 300 UNIT/3 ML VIAL SQ SCH ×3 (07:50→18:05)
[2016-12-02] MEDS: PANTOPRAZOLE 40 MG TABLET PO SCH (07:54)
[2016-12-02] MEDS: ATORVASTATIN 20 MG TAB PO SCH (07:55)
[2016-12-02] MEDS: LORATADINE 10 MG TAB PO SCH (07:55)
[2016-12-02] MEDS: SERTRALINE 50 MG TAB PO SCH (07:55)
[2016-12-02] MEDS: FUROSEMIDE 20 MG TAB PO SCH (07:55)
[2016-12-02] MEDS: ASPIRIN 81 MG CHEW PO SCH (07:56)
[2016-12-02] MEDS: BENZONATATE 100 MG CAP PO SCH ×3 (07:56→20:49)
[2016-12-02] MEDS: AZITHROMYCIN 500 MG TAB PO SCH (07:56)
[2016-12-02] MEDS: LISINOPRIL 20 MG TAB PO SCH (07:57)
[2016-12-02] MEDS: DOCUSATE 100 MG CAP PO SCH ×2 (07:57→20:49)
[2016-12-02] MEDS: ALPRAZolam 0.5 MG TAB PO PRN ×2 (08:03→15:50)
[2016-12-02] MEDS: HYDROcodone/APAP 10-325MG 1 EACH TAB PO PRN ×4 (08:03→20:50)
[2016-12-02] MEDS: CHLORPHEN-HYDROcod 8-10mg/5ml 5 ML ORAL.SYRG PO SCH ×2 (08:37→20:49)
--- NOTE | 2016-12-02 09:00 | PN ---
DATE OF SERVICE: 12/01/2016 This 70 -year-old gentleman was admitted to the hospital with COPD acute exacerbation, also having significant shortness of breath. Dr. Mcclellan ordered CT Angio of the chest which showed no evidence of pulmonary embolus but a new small 1 cm patch of ground glass in the lateral left lower lobe, could represent a small infection of inflammatory focus. The trace right pleural effusion was also noted and stable large 2 cm left lower lobe pulmonary nodule was also noted and chronic obstructive pulmonary disease and suspected treatment changes and as well as chronic volume and consolidation involving the right upper and superior segment of right lower lobe also noted. 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 The patient being closely monitored. Past medical history reviewed. REVIEW OF SYSTEMS: CARDIOVASCULAR: No angina or palpitations. RESPIRATORY: As mentioned earlier. GASTROINTESTINAL: No nausea or vomiting. : No dysuria. Nervous system: No numbness, weakness. Current medications are: 1. [place] 10 mg one every 4 hours p.r.n. 2. Duoneb q.i.d. and p.r.n. 3. Xanax 0.5 q8h. 4. Aspirin 81 mg. 5. Lipitor. 6. Zithromax 500 mg daily. 7. Tessalon Perles 200 mg t.i.d. 8. Pulmicort 1 mg b.i.d. 9. Rocephin 1 gram daily. 10. Tussionex ( ) b.i.d. 11. Colace 100 mg b.i.d. 12. Perforomist 20 mcg b.i.d. 13. Lasix 20 mg p.o. daily. 14. Heparin 5000 subcu b.i.d. 16. Claritin. 17. Solu-Medrol. 18. Narcan. 19. Ambien. PHYSICAL EXAMINATION: The patient is alert and oriented times three. Pulse is 110, blood pressure is n, respiratory rate 20, temperature 97.8, pulse ox 92% on 4 L. HEENT: Conjunctivae normal. Oral mucosa moist. NECK: ntd CARDIOVASCULAR SYSTEM: S1, S2 muffled. No S3, no S4. RESPIRATORY: Breath sounds diminished at the bases. Bilateral scattered rhonchi and crackles. ABDOMEN: Soft, nontender. No mass palpable. Legs: No edema, no swelling. Nervous system: Higher functions as mentioned earlier. Moves all 4 limbs. No focal deficits. LYMPHATICS: No lymph nodes palpable in the neck, axillae or groin. SKIN: No ulcer, rash or bleeding. LABS: Accu-Cheks noted, 145, hemoglobin is 10.7. Glucose ntd ASSESSMENT: 1. Chronic obstructive pulmonary disease, acute exacerbation, with acute hypoxic respiratory failure with bilateral pneumonia and left lower lobe and right upper lobe and superior segment of the right lower lobe, possibly gram-negative. 2. History of lung cancer. Squamous cell carcinoma of the right lung with remission, chemoradiation 2012. 3. Possible sepsis, present on admission. 4. Diabetes mellitus type 2, uncontrolled. 5. 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 6. Hyperlipidemia. 7. Hypertension. 8. History of degenerative joint disease. 9. Asbestos exposure history. 11. Thrombocytopenia. 12. Anemia, normocytic. 13. Increased carbon dioxide. 14. FULL CODE. RECOMMENDATIONS AND DISCUSSION: In this 70-year-old gentleman who presented with multiple complex medical issues, we will monitor the patient closely. Continue the current medications, continue with IV steroids. Continue empiric antibiotics. Closely follow with Dr. Mcclellan. Consider bronchoscopy if the patient is not feeling better. DVT prophylaxis. Further recommendations to follow. Once again, the prognosis is guarded. The patient is on heparin subcu q.8. MTDD
[2016-12-02 10:02] LABS: Glucose,Whole Blood 279 mg/dL (75-99)
--- NOTE | 2016-12-02 10:50 | PN ---
DATE OF SERVICE: 12/01/2016 Reason for followup is tracheobronchitis with a question of pneumonia. INTERVAL HISTORY: The patient is afebrile. He continued complaining of shortness of breath in this patient with minimal exertion without having any significant chest pain. Mild cough but no sputum production, no abdominal pain, or any diarrhea. On examination, blood pressure is 136/79 with pulse of 110, temperature 97.8. He is 92% on 4 L nasal cannula. General description is an elderly male, lying in bed in no distress. RESPIRATORY SYSTEM: Unlabored breathing with decreased breath sounds at the base with no significant wheeze. HEART: S1, S2, regular rate and rhythm. ABDOMEN: Soft, no tenderness. LABS: Hemoglobin is 10.7, white count of 8.8. The aspergillus fumigatus IgE is slightly elevated. DIAGNOSTIC IMPRESSION AND PLAN: Patient with difficulty in breathing which is likely underlying chronic obstructive pulmonary disease exacerbation with concern for possible tracheobronchitis or pneumonia. Sputum did show aspergillus fumigatus and the significant count was low though the IgE antibody is slightly elevated. He has been taken off the Sporanox by Pulmonary. He will be continued on the Rocephin and azithromycin. He will be given a short course of p.o. Ceftin at the time of discharge. Continue supportive care.
[2016-12-02 11:59] LABS: Glucose,Whole Blood 233 mg/dL (75-99)
[2016-12-02 14:48] LABS: Glucose,Whole Blood 251 mg/dL (75-99)
--- NOTE | 2016-12-02 15:58 | P.PN ---
Subjective Progress note dated 12/02/2016 The patient was been seen by my partner for the last couple of days. A CT angiogram of chest was done which was negative for pulmonary most him but did show little patch of infiltrate in the left lower lobe. In addition there is a stable pulmonary nodule on a small effusion. Overall the patient seemed be doing a bit better although that he's got significant lower extremity edema and he is very very short of breath with any activity. Anyway the patient is sitting in the chair at the bedside. Today is his birthday. He turns 71 today. Objective - Vital Signs Vital signs: Vital Signs Temp 97 F L 12/02/16 07:00 Pulse 104 H 12/02/16 12:10 Resp 20 12/02/16 07:00 BP 139/72 12/02/16 07:00 Pulse Ox 97 12/02/16 07:00 Intake & Output 12/01/16 12/02/16 12/02/16 18:59 06:59 18:59 Intake Total 32.801 21.100 28.775 Output Total 400 Balance 32.801 -378.900 28.775 Intake: Intake, IV Titration 32.801 21.100 28.775 Amount Insulin Regular 100 unit 32.801 21.100 28.775 In Sodium Chloride 0.9% 100 ml @ Titrate IV .Q0M [facility] Rx#:[id number] Output: Urine 400 Other: Voiding Method Urinal Urinal Urinal # Voids 1 # Bowel Movements 1 - Exam No acute distress, oriented 3, mild tachypnea. HEENT examination is grossly unremarkable. Mucous membranes are moist. No oral lesions noted. Neck supple. Full range of motion. No adenopathy. Cardiovascular examination reveals regular rhythm rate. S1-S2 normal. No S3- S4. No murmur. Next Lungs reveal few scattered rhonchi and crackles. Breath sounds diminished. Abdomen soft bowel sounds are heard. Extremities are 1-2+ pitting edema. - Labs CBC & Chem 7: 11/30/16 07:40 11/30/16 07:40 Labs: Abnormal Lab Results - Last 24 Hours (Table) 12/01/16 12/01/16 12/01/16 Range/Units 16:46 17:40 19:18 POC Glucose (mg/dL) 118 H 145 H 177 H (75-99) mg/dL 12/01/16 12/01/16 12/02/16 Range/Units 21:22 23:44 00:57 POC Glucose (mg/dL) 155 H 115 H 122 H (75-99) mg/dL 12/02/16 12/02/16 12/02/16 Range/Units 02:03 03:06 04:14 POC Glucose (mg/dL) 122 H 151 H 161 H (75-99) mg/dL 12/02/16 12/02/16 12/02/16 Range/Units 05:53 07:05 07:46 POC Glucose (mg/dL) 150 H 129 H 139 H (75-99) mg/dL 12/02/16 12/02/16 12/02/16 Range/Units 09:53 11:57 14:45 POC Glucose (mg/dL) 279 H 233 H 251 H (75-99) mg/dL Assessment and Plan (1) Acute exacerbation of chronic obstructive airways disease Status: Acute (2) Diabetes Status: Acute (3) Squamous cell carcinoma of lung Status: Acute (4) Pneumonia Status: Acute (5) Lower extremity edema Status: Acute (6) Radiation pneumonitis Status: Acute Plan: Plan dated 12/02/2016 The patient's medications are reviewed. I may add some additional diuretics to relieve the lower summary edema. CT angiogram the chest was negative for pulmonary embolism. Medications are reviewed. Prognosis is guarded. Time with Patient: Greater than 30
[2016-12-02 17:32] LABS: Glucose,Whole Blood 254 mg/dL (75-99)
[2016-12-02 19:11] LABS: Glucose,Whole Blood 236 mg/dL (75-99)
[2016-12-02] MEDS: INSULIN REGULAR 100 UNIT in SODIUM CHLORIDE 0.9% 100 ML IV SCH (19:14)
[2016-12-02 21:25] LABS: Glucose,Whole Blood 183 mg/dL (75-99)
--- NOTE | 2016-12-02 22:01 | PN ---
DATE OF SERVICE: 12/02/2016 This 71-year-old gentleman who was admitted with COPD, acute exacerbation, and acute hypoxic respiratory failure is still having significant shortness of breath. The patient is being closely monitored. Dr. Dee is also following the patient closely, as is Infectious Disease. Past medical history reviewed. REVIEW OF SYSTEMS: CARDIOVASCULAR SYSTEM: No angina, palpitations. RESPIRATORY SYSTEM: As mentioned earlier. GI: As mentioned earlier. : No dysuria, retention. NERVOUS SYSTEM: As mentioned earlier. Current medications are reviewed and include: 1. [place] 10 mg p.o. 2. Duo q.i.d. and p.r.n. 3. Xanax 0.5 q.8. 4. Aspirin 81 mg daily. 5. Lipitor 10 mg daily. 6. Zithromax 500 mg p.o. daily. 7. Pulmicort 1 mg b.i.d. 8. Colace 100 mg p.o. b.i.d. 9. Lasix 40 mg p.o. daily. 10. Heparin. 11. Zestril 20 mg p.o. daily. 12. Claritin 10 mg p.o. daily. 13. Zaroxolyn. 14. Prednisone 40 mg p.o. daily. PHYSICAL EXAMINATION: Patient is alert and oriented x3. Pulse is 106, blood pressure 150/82, respiration 22, temperature 97 degrees, pulse ox 92% on 3 L. HEENT: Conjunctivae normal. Oral mucosa moist. NECK: No jugular venous distention. No carotid bruit. No lymph node enlargement. CARDIOVASCULAR SYSTEM: S1, S2 muffled. RESPIRATORY SYSTEM: Breath sounds diminished at the bases. Bilateral scattered rhonchi and crackles. ABDOMEN: Soft, nontender. No mass palpable. LEGS: No edema. No swelling. NERVOUS SYSTEM: Higher functions as mentioned earlier. Moves all 4 limbs. No focal motor or sensory deficit. LYMPHATICS: No lymph node palpable in neck, axillae or groin. LAB INVESTIGATIONS: Accu-Cheks are noted. Other labs are noted. ASSESSMENT: 1. Chronic obstructive pulmonary disease, acute exacerbation, with acute hypoxic respiratory failure with bilateral pneumonia, left more than the right, with right upper lobe and superior segment of the right lower lobe possibly Gram-negative. 2. History of lung cancer; squamous cell carcinoma of the lung with remission, chemoradiation in 2012. 3. Possible sepsis, present on admission. 4. Diabetes mellitus, type 2, uncontrolled. 5. Chronic kidney disease, stage III, secondary to diabetic nephropathy. 6. Hyperlipidemia. 7. Hypertension. 8. History of degenerative joint disease. 9. History of asbestos exposure. 10. Thrombocytopenia. 11. Anemia, normocytic. 12. Increased carbon dioxide. 13. FULL CODE. RECOMMENDATIONS AND DISCUSSION: I recommend to continue with the current medications, continue with the monitoring, continue with symptomatic treatment, continue with the bronchodilators, continue with empiric antibiotics, continue with IV steroids. Closely follow with Dr. Dee and Infectious Disease. CT angio is negative for pulmonary embolism. Continue to monitor. Further recommendations to follow.
[2016-12-02 23:10] LABS: Glucose,Whole Blood 208 mg/dL (75-99)
--- NOTE | 2016-12-02 23:21 | PN ---
DATE OF SERVICE: 12/02/2016 REASON FOR FOLLOWUP: Tracheobronchitis/pneumonia. INTERVAL HISTORY: The patient is afebrile. His main symptom remains increasing shortness of breath. He did have a mild cough, not bringing up any sputum. Denies any chest pain. No abdominal pain or any diarrhea. On examination, blood pressure is 155/82 with a pulse of 109, temperature of 97. He is 93% on 3 L nasal cannula. General description is an elderly male lying in bed in no distress. RESPIRATORY SYSTEM: Unlabored breathing with decreased intensity of breath sounds. HEART: S1, S2. Regular rate and rhythm. ABDOMEN: Soft. No tenderness. LABS: No new labs have been obtained today. DIAGNOSTIC IMPRESSION AND PLAN: Patient who has underlying chronic obstructive pulmonary disease exacerbation with tracheobronchitis. Clinical suspicion remains low for pneumonia. Currently patient is being covered with azithromycin along with steroid and bronchodilator. That will be continued. Sputum did show Aspergillus fumigatus, though his Eosinophil count was zero that will make less likely an allergic bronchopulmonary aspergillosis. Patient is being monitored closely by pulmonary team. Will continue to monitor him closely. Continue supportive care. [place]
[2016-12-03] MEDS: HEPARIN SODIUM,PORCINE 5,000 UNIT/ML 1 ML VIAL SQ SCH ×3 (00:38→15:21)
[2016-12-03 01:09] LABS: Glucose,Whole Blood 144 mg/dL (75-99)
[2016-12-03] MEDS: ALPRAZolam 0.5 MG TAB PO PRN ×2 (01:13→09:13)
[2016-12-03] MEDS: IPRATROPIUM-ALBUTEROL 3 ML NEB INHALATION PRN (01:21)
[2016-12-03 03:04] LABS: Glucose,Whole Blood 117 mg/dL (75-99)
[2016-12-03 04:07] LABS: Glucose,Whole Blood 130 mg/dL (75-99)
[2016-12-03 05:17] LABS: Glucose,Whole Blood 128 mg/dL (75-99)
[2016-12-03 06:15] LABS: Glucose,Whole Blood 132 mg/dL (75-99)
[2016-12-03] MEDS: IPRATROPIUM-ALBUTEROL 3 ML NEB INHALATION SCH ×3 (07:36→16:30)
[2016-12-03] MEDS: BUDESONIDE 1 MG/2 ML NEBU INHALATION SCH (07:36)
[2016-12-03] MEDS: FORMOTEROL FUMARATE 20 MCG/2 ML NEBU INHALATION SCH (07:37)
[2016-12-03 07:58] LABS: Glucose,Whole Blood 141 mg/dL (75-99)
[2016-12-03 08:06] LABS: Basophils % (A) 0 %; CH 29.7; CHCM 31.7; Eosinophils % (A) 0 %; HCT 28.7 % (39.0-53.0); HGB 9.2 gm/dL (13.0-17.5); Luc # (Auto) 0.07; Luc % (Auto) 1; Lymphocytes # (A) 0.3 k/uL (1.0-4.8); Lymphocytes % (A) 3 %; MCH 30.2 pg (25.0-35.0); MCHC 32.1 g/dL (31.0-37.0); Mean Platelet Volume 7.8; Monocytes # (A) 0.4 k/uL (0-1.0); Monocytes % (A) 3 %; Neutrophils # (A) 9.8 k/uL (1.3-7.7); Neutrophils % (A) 93 %; RBC 3.05 m/uL (4.30-5.90); RDW 14.8 % (11.5-15.5); WBC 10.5 k/uL (3.8-10.6); WBC (Perox) 11.37
[2016-12-03 08:36] LABS: Anion Gap 8 mmol/L; Blood Urea Nitrogen 34 mg/dL (9-20); Calcium 8.2 mg/dL (8.4-10.2); Carbon Dioxide 30 mmol/L (22-30); Chloride 109 mmol/L (98-107); Glucose 135 mg/dL (74-99); Non-African American GFR(MDRD) >60 (>60 ml/min/1.73 sqM); Potassium 4.1 mmol/L (3.5-5.1); Sodium 147 mmol/L (137-145)
[2016-12-03 08:57] VITALS: RESP 22; TEMP 97
[2016-12-03] MEDS ORDERED: predniSONE 20 MG TAB PO SCH (09:00)
[2016-12-03] MEDS ORDERED: METOLAZONE 2.5 MG TAB PO SCH (09:00)
[2016-12-03] MEDS ORDERED: FUROSEMIDE 40 MG TAB PO SCH (09:00)
[2016-12-03] MEDS: BENZONATATE 100 MG CAP PO SCH ×2 (09:10→15:21)
[2016-12-03] MEDS: INSULIN LISPRO (humaLOG) 300 UNIT/3 ML VIAL SQ SCH ×3 (09:10→17:53)
[2016-12-03] MEDS: ATORVASTATIN 20 MG TAB PO SCH (09:11)
[2016-12-03] MEDS: ASPIRIN 81 MG CHEW PO SCH (09:11)
[2016-12-03] MEDS: AZITHROMYCIN 500 MG TAB PO SCH (09:11)
[2016-12-03] MEDS: PANTOPRAZOLE 40 MG TABLET PO SCH (09:11)
[2016-12-03] MEDS: DOCUSATE 100 MG CAP PO SCH (09:12)
[2016-12-03] MEDS: CHLORPHEN-HYDROcod 8-10mg/5ml 5 ML ORAL.SYRG PO SCH (09:12)
[2016-12-03] MEDS: LORATADINE 10 MG TAB PO SCH (09:13)
[2016-12-03] MEDS: SERTRALINE 50 MG TAB PO SCH (09:13)
[2016-12-03] MEDS: HYDROcodone/APAP 10-325MG 1 EACH TAB PO PRN ×3 (09:13→18:11)
[2016-12-03] MEDS: LISINOPRIL 20 MG TAB PO SCH (09:14)
[2016-12-03 11:23] LABS: Glucose,Whole Blood 278 mg/dL (75-99)
[2016-12-03] MEDS ORDERED: LORazepam 2 MG/ML SYRINGE IV PRN (14:34)
--- NOTE | 2016-12-03 15:37 | P.PN ---
Subjective Progress note dated 12/02/2016 The patient was been seen by my partner for the last couple of days. A CT angiogram of chest was done which was negative for pulmonary most him but did show little patch of infiltrate in the left lower lobe. In addition there is a stable pulmonary nodule on a small effusion. Overall the patient seemed be doing a bit better although that he's got significant lower extremity edema and he is very very short of breath with any activity. Anyway the patient is sitting in the chair at the bedside. Today is his birthday. He turns 71 today. Progress note dated 12/03/2016. The patient may be is a bit better. We added some Zaroxolyn to his regimen yesterday and also bumped up his Lasix dose. The patient apparently had discussions with some about hospice care. We'll have further discussions as we proceed. Renal watch the patient very carefully. He wants to be discharged home tomorrow. Overall his prognosis is poor. He does want to go hospice he states. The person he talked to a couple days ago name Shona apparently is what he wants be to again about the hospice choice. Objective - Vital Signs Vital signs: Vital Signs Temp 97 F L 12/03/16 07:00 Pulse 86 12/03/16 11:41 Resp 22 12/03/16 11:41 BP 163/83 12/03/16 07:00 Pulse Ox 96 12/03/16 07:45 Intake & Output 12/02/16 12/03/16 12/03/16 18:59 06:59 18:59 Intake Total 38.624 223.700 Output Total 900 Balance 38.624 -676.300 Weight 93 kg Intake: Intake, IV Titration 38.624 23.700 Amount Insulin Regular 100 unit 38.624 23.700 In Sodium Chloride 0.9% 100 ml @ Titrate IV .Q0M [facility] Rx#:[id number] Oral 200 Output: Urine 900 Other: Voiding Method Urinal Urinal Urinal - Exam No acute distress, oriented 3, mild tachypnea. HEENT examination is grossly unremarkable. Mucous membranes are moist. No oral lesions noted. Neck supple. Full range of motion. No adenopathy. Cardiovascular examination reveals regular rhythm rate. S1-S2 normal. No S3- S4. No murmur. Next Lungs reveal few scattered rhonchi and crackles. Breath sounds diminished. Abdomen soft bowel sounds are heard. Extremities are 1-2+ pitting edema. - Labs CBC & Chem 7: 12/03/16 07:45 12/03/16 07:45 Labs: Abnormal Lab Results - Last 24 Hours (Table) 12/02/16 12/02/16 12/02/16 Range/Units 17:19 19:07 21:05 RBC (4.30-5.90) m/uL Hgb (13.0-17.5) gm/dL Hct (39.0-53.0) % Plt Count (150-450) k/uL Neutrophils # (1.3-7.7) k/uL Lymphocytes # (1.0-4.8) k/uL Sodium (137-145) mmol/L Chloride (98-107) mmol/L BUN (9-20) mg/dL Glucose (74-99) mg/dL POC Glucose (mg/dL) 254 H 236 H 183 H (75-99) mg/dL Calcium (8.4-10.2) mg/dL 12/02/16 12/03/16 12/03/16 Range/Units 23:06 01:02 02:58 RBC (4.30-5.90) m/uL Hgb (13.0-17.5) gm/dL Hct (39.0-53.0) % Plt Count (150-450) k/uL Neutrophils # (1.3-7.7) k/uL Lymphocytes # (1.0-4.8) k/uL Sodium (137-145) mmol/L Chloride (98-107) mmol/L BUN (9-20) mg/dL Glucose (74-99) mg/dL POC Glucose (mg/dL) 208 H 144 H 117 H (75-99) mg/dL Calcium (8.4-10.2) mg/dL 12/03/16 12/03/16 12/03/16 Range/Units 04:05 05:02 05:59 RBC (4.30-5.90) m/uL Hgb (13.0-17.5) gm/dL Hct (39.0-53.0) % Plt Count (150-450) k/uL Neutrophils # (1.3-7.7) k/uL Lymphocytes # (1.0-4.8) k/uL Sodium (137-145) mmol/L Chloride (98-107) mmol/L BUN (9-20) mg/dL Glucose (74-99) mg/dL POC Glucose (mg/dL) 130 H 128 H 132 H (75-99) mg/dL Calcium (8.4-10.2) mg/dL 12/03/16 12/03/16 12/03/16 Range/Units 07:34 07:45 07:45 RBC 3.05 L (4.30-5.90) m/uL Hgb 9.2 L D (13.0-17.5) gm/dL Hct 28.7 L (39.0-53.0) % Plt Count 112 L (150-450) k/uL Neutrophils # 9.8 H (1.3-7.7) k/uL Lymphocytes # 0.3 L (1.0-4.8) k/uL Sodium 147 H (137-145) mmol/L Chloride 109 H (98-107) mmol/L BUN 34 H (9-20) mg/dL Glucose 135 H (74-99) mg/dL POC Glucose (mg/dL) 141 H (75-99) mg/dL Calcium 8.2 L (8.4-10.2) mg/dL 12/03/16 Range/Units 11:15 RBC (4.30-5.90) m/uL Hgb (13.0-17.5) gm/dL Hct (39.0-53.0) % Plt Count (150-450) k/uL Neutrophils # (1.3-7.7) k/uL Lymphocytes # (1.0-4.8) k/uL Sodium (137-145) mmol/L Chloride (98-107) mmol/L BUN (9-20) mg/dL Glucose (74-99) mg/dL POC Glucose (mg/dL) 278 H (75-99) mg/dL Calcium (8.4-10.2) mg/dL Assessment and Plan (1) Acute exacerbation of chronic obstructive airways disease Status: Acute (2) Diabetes Status: Acute (3) Squamous cell carcinoma of lung Status: Acute (4) Pneumonia Status: Acute (5) Lower extremity edema Status: Acute (6) Radiation pneumonitis Status: Acute Plan: Plan dated 12/02/2016 The patient's medications are reviewed. I may add some additional diuretics to relieve the lower summary edema. CT angiogram the chest was negative for pulmonary embolism. Medications are reviewed. Prognosis is guarded. Plan dated 12/03/2016 We'll continue to follow the patient closely. We bumped his Lasix dose up yesterday. We added a small dose of Zaroxolyn. Computed tomography scan of the chest was negative for pulmonary embolism. His medications are excellent. Possible discharge tomorrow. He does consider hospice option for him. We'll continue to have further discussions with Kai Mejia with Patient: Less than 30
[2016-12-03 15:55] VITALS: BP 155/91
[2016-12-03 17:28] VITALS: PULSE 84
[2016-12-03 17:43] LABS: Glucose,Whole Blood 279 mg/dL (75-99)
--- NOTE | 2016-12-03 19:42 | PN ---
DATE OF SERVICE: 12/03/2016 REASON FOR FOLLOW-UP: 1. Tracheobronchitis, question pneumonia. 2. Positive blood culture. INTERVAL HISTORY: The patient is afebrile. His breathing is slightly improved. Main symptom remains to be shortness of breath. He did have some mild cough and is dry in nature. Patient denies chest pain. No abdominal pain, nausea, vomiting or any diarrhea. On examination, blood pressure 153/83 with a pulse 102, temperature 97. He is 96% on 3-L nasal cannula. General description is an elderly male, lying in bed in no distress. RESPIRATORY SYSTEM: Unlabored breathing with decreased breath sounds at base. No wheeze. HEART: S1, S2 with regular rate and rhythm. ABDOMEN: Soft, no tenderness. LABS: Hemoglobin 9.1, white count 10.5 with a BUN of 34, creatinine 1.04. Blood culture repeat has been negative. DIAGNOSTIC IMPRESSION AND PLAN: 1. Patient with admission blood culture coagulase-negative Staphylococcus likely skin contamination. Follow up blood culture has been negative. No need for further workup. 2. The patient with chronic obstructive pulmonary disease exacerbation with question of possible tracheobronchitis versus early pneumonia. Currently on Rocephin and has received about a week and that has been discontinued. Currently p.o. Zithromax that can be continued for another 3 to 4 days and then discontinue. Continue supportive care.
[2016-12-03] MEDS ORDERED: CALCIUM CHLORIDE 100 MG/ML 10 ML VIAL ONE (19:51)
[2016-12-03] MEDS ORDERED: AMIODARONE 50 MG/ML 9 ML VIAL IV ONE (19:51)
[2016-12-03] MEDS ORDERED: AMIODARONE 50 MG/ML 3 ML VIAL IV ONE (19:51)
[2016-12-03] MEDS ORDERED: EPINEPHrine 10 ML SYRINGE (0.1 MG/ML) ONE (19:51)
[2016-12-03] MEDS ORDERED: MAGNESIUM SULFATE SYG 4.06 MEQ/ML SYRINGE ONE (19:51)
[2016-12-03] MEDS ORDERED: SODIUM BICARB 8.4% 50 ML SYR (1 MEQ/ML) ONE (19:51)
[2016-12-03] MEDS ORDERED: DEXTROSE 5% IN WATER 100 ML with AMIODARONE 150 MG IV ONE (20:13)
[2016-12-03 20:18] LABS: Glucose,Whole Blood 316 mg/dL (75-99)
--- NOTE | 2016-12-03 20:33 | ED ---
Medical Decision Making - Medical Decision Making Called for CODE BLUE. Code started at 747 and I did arrive shortly following this. Patient lying on the floor unresponsive. Patient was admitted to the hospital for COPD and CHF. Patient is unresponsive. Agonal respirations. No pulse. CPR was started. ACLS protocol was followed. Patient was intubated by STRAIGHTENING ROLL OPERATOR. Patient was in asystole as well as PEA as well as V. fib and V. tach. Patient did have return of pulse very briefly. Case was also discussed with Dr. Dee who is very familiar with this patient and recommends not continuing CPR. At 825 patient was found to have no spontaneous respirations. No spontaneous heart sounds. No spontaneous pulses. No response to pain. Pupils are unreactive. Time of is 825 PM. Family is not present. - Lab Data Result diagrams: 12/03/16 07:45 12/03/16 07:45 Lab Results 11/21/16 11/21/16 11/21/16 Range/Units 12:38 16:16 16:16 WBC 12.8 H (3.8-10.6) k/uL RBC 4.17 L (4.30-5.90) m/uL Hgb 12.3 L (13.0-17.5) gm/dL Hct 39.8 (39.0-53.0) % MCV 95.4 (80.0-100.0) fL MCH 29.4 (25.0-35.0) pg MCHC 30.8 L (31.0-37.0) g/dL RDW 12.9 (11.5-15.5) % Plt Count 178 (150-450) k/uL Neutrophils % 91 % Lymphocytes % 4 % Monocytes % 3 % Eosinophils % 0 % Basophils % 1 % Neutrophils # 11.6 H (1.3-7.7) k/uL Lymphocytes # 0.5 L (1.0-4.8) k/uL Monocytes # 0.4 (0-1.0) k/uL Eosinophils # 0.0 (0-0.7) k/uL Basophils # 0.1 (0-0.2) k/uL Hypochromasia Sodium 141 (137-145) mmol/L Potassium 5.0 (3.5-5.1) mmol/L Chloride 104 (98-107) mmol/L Carbon Dioxide 23 (22-30) mmol/L Anion Gap 14 mmol/L BUN 39 H (9-20) mg/dL Creatinine 1.11 (0.66-1.25) mg/dL Est GFR (MDRD) Af Amer >60 (>60 ml/min/1.73 sqM) Est GFR (MDRD) Non-Af >60 (>60 ml/min/1.73 sqM) Glucose 269 H (74-99) mg/dL POC Glucose (mg/dL) 113 H (75-99) mg/dL POC Glu Patient Account Representative ID Ruth Wang Estimated Ave Glu mg/dL mg/dL Hemoglobin A1c (4.2-6.1) % Plasma Lactic Acid Diego (0.7-2.0) mmol/L Calcium 9.2 (8.4-10.2) mg/dL Phosphorus (2.5-4.5) mg/dL Magnesium (1.6-2.3) mg/dL Total Bilirubin 0.4 (0.2-1.3) mg/dL AST 27 (17-59) U/L ALT 58 (21-72) U/L Alkaline Phosphatase 41 (38-126) U/L Total Protein 5.8 L (6.3-8.2) g/dL Albumin 3.7 (3.5-5.0) g/dL A.fumigatus Allerg IgE kU/L Urine Color Urine Appearance (Clear) Urine pH (5.0-8.0) Ur Specific [place] (1.001-1.035) Urine Protein (Negative) Urine Glucose (UA) (Negative) Urine Ketones (Negative) Urine Blood (Negative) Urine Nitrate (Negative) Urine Bilirubin (Negative) Urine Urobilinogen (<2.0) mg/dL Ur Leukocyte Esterase (Negative) Aspergillus Ab (CompFix) (<1:8) 11/21/16 11/21/16 11/21/16 Range/Units 16:55 18:45 20:21 WBC (3.8-10.6) k/uL RBC (4.30-5.90) m/uL Hgb (13.0-17.5) gm/dL Hct (39.0-53.0) % MCV (80.0-100.0) fL MCH (25.0-35.0) pg MCHC (31.0-37.0) g/dL RDW (11.5-15.5) % Plt Count (150-450) k/uL Neutrophils % % Lymphocytes % % Monocytes % % Eosinophils % % Basophils % % Neutrophils # (1.3-7.7) k/uL Lymphocytes # (1.0-4.8) k/uL Monocytes # (0-1.0) k/uL Eosinophils # (0-0.7) k/uL Basophils # (0-0.2) k/uL Hypochromasia Sodium (137-145) mmol/L Potassium (3.5-5.1) mmol/L Chloride (98-107) mmol/L Carbon Dioxide (22-30) mmol/L Anion Gap mmol/L BUN (9-20) mg/dL Creatinine (0.66-1.25) mg/dL Est GFR (MDRD) Af Amer (>60 ml/min/1.73 sqM) Est GFR (MDRD) Non-Af (>60 ml/min/1.73 sqM) Glucose (74-99) mg/dL POC Glucose (mg/dL) 236 H 216 H (75-99) mg/dL POC Glu Patient Account Representative Ruth Sadler Karen Estimated Ave Glu mg/dL mg/dL Hemoglobin A1c (4.2-6.1) % Plasma Lactic Acid Diego (0.7-2.0) mmol/L Calcium (8.4-10.2) mg/dL Phosphorus (2.5-4.5) mg/dL Magnesium (1.6-2.3) mg/dL Total Bilirubin (0.2-1.3) mg/dL AST (17-59) U/L ALT (21-72) U/L Alkaline Phosphatase (38-126) U/L Total Protein (6.3-8.2) g/dL Albumin (3.5-5.0) g/dL A.fumigatus Allerg IgE kU/L Urine Color Yellow Urine Appearance Clear (Clear) Urine pH 6.0 (5.0-8.0) Ur Specific [place] 1.012 (1.001-1.035) Urine Protein Trace H (Negative) Urine Glucose (UA) 4+ H (Negative) Urine Ketones Negative (Negative) Urine Blood Negative (Negative) Urine Nitrate Negative (Negative) Urine Bilirubin Negative (Negative) Urine Urobilinogen <2.0 (<2.0) mg/dL Ur Leukocyte Esterase Negative (Negative) Aspergillus Ab (CompFix) (<1:8) 11/22/16 11/22/16 11/22/16 Range/Units 07:19 07:27 07:27 WBC 14.0 H (3.8-10.6) k/uL RBC 4.00 L (4.30-5.90) m/uL Hgb 12.0 L (13.0-17.5) gm/dL Hct 37.3 L (39.0-53.0) % MCV 93.3 (80.0-100.0) fL MCH 29.9 (25.0-35.0) pg MCHC 32.0 (31.0-37.0) g/dL RDW 12.7 (11.5-15.5) % Plt Count 196 (150-450) k/uL Neutrophils % % Lymphocytes % % Monocytes % % Eosinophils % % Basophils % % Neutrophils # (1.3-7.7) k/uL Lymphocytes # (1.0-4.8) k/uL Monocytes # (0-1.0) k/uL Eosinophils # (0-0.7) k/uL Basophils # (0-0.2) k/uL Hypochromasia Sodium (137-145) mmol/L Potassium (3.5-5.1) mmol/L Chloride (98-107) mmol/L Carbon Dioxide (22-30) mmol/L Anion Gap mmol/L BUN (9-20) mg/dL Creatinine (0.66-1.25) mg/dL Est GFR (MDRD) Af Amer (>60 ml/min/1.73 sqM) Est GFR (MDRD) Non-Af (>60 ml/min/1.73 sqM) Glucose (74-99) mg/dL POC Glucose (mg/dL) 153 H (75-99) mg/dL POC Glu Patient Account Representative ID Jolene Bernard Estimated Ave Glu mg/dL 157 mg/dL Hemoglobin A1c 7.1 H (4.2-6.1) % Plasma Lactic Acid Diego (0.7-2.0) mmol/L Calcium (8.4-10.2) mg/dL Phosphorus (2.5-4.5) mg/dL Magnesium (1.6-2.3) mg/dL Total Bilirubin (0.2-1.3) mg/dL AST (17-59) U/L ALT (21-72) U/L Alkaline Phosphatase (38-126) U/L Total Protein (6.3-8.2) g/dL Albumin (3.5-5.0) g/dL A.fumigatus Allerg IgE kU/L Urine Color Urine Appearance (Clear) Urine pH (5.0-8.0) Ur Specific [place] (1.001-1.035) Urine Protein (Negative) Urine Glucose (UA) (Negative) Urine Ketones (Negative) Urine Blood (Negative) Urine Nitrate (Negative) Urine Bilirubin (Negative) Urine Urobilinogen (<2.0) mg/dL Ur Leukocyte Esterase (Negative) Aspergillus Ab (CompFix) (<1:8) 11/22/16 11/22/16 11/22/16 Range/Units 07:27 11:55 17:11 WBC (3.8-10.6) k/uL RBC (4.30-5.90) m/uL Hgb (13.0-17.5) gm/dL Hct (39.0-53.0) % MCV (80.0-100.0) fL MCH (25.0-35.0) pg MCHC (31.0-37.0) g/dL RDW (11.5-15.5) % Plt Count (150-450) k/uL Neutrophils % % Lymphocytes % % Monocytes % % Eosinophils % % Basophils % % Neutrophils # (1.3-7.7) k/uL Lymphocytes # (1.0-4.8) k/uL Monocytes # (0-1.0) k/uL Eosinophils # (0-0.7) k/uL Basophils # (0-0.2) k/uL Hypochromasia Sodium 142 (137-145) mmol/L Potassium 4.8 (3.5-5.1) mmol/L Chloride 106 (98-107) mmol/L Carbon Dioxide 23 (22-30) mmol/L Anion Gap 13 mmol/L BUN 34 H (9-20) mg/dL Creatinine 0.96 (0.66-1.25) mg/dL Est GFR (MDRD) Af Amer >60 (>60 ml/min/1.73 sqM) Est GFR (MDRD) Non-Af >60 (>60 ml/min/1.73 sqM) Glucose 162 H (74-99) mg/dL POC Glucose (mg/dL) 258 H 183 H (75-99) mg/dL POC Glu Patient Account Representative ZACHARY Joana Jolene Betomalloryjohn paul, Jolene Estimated Ave Glu mg/dL mg/dL Hemoglobin A1c (4.2-6.1) % Plasma Lactic Acid Diego (0.7-2.0) mmol/L Calcium 9.0 (8.4-10.2) mg/dL Phosphorus (2.5-4.5) mg/dL Magnesium (1.6-2.3) mg/dL Total Bilirubin (0.2-1.3) mg/dL AST (17-59) U/L ALT (21-72) U/L Alkaline Phosphatase (38-126) U/L Total Protein (6.3-8.2) g/dL Albumin (3.5-5.0) g/dL A.fumigatus Allerg IgE kU/L Urine Color Urine Appearance (Clear) Urine pH (5.0-8.0) Ur Specific [place] (1.001-1.035) Urine Protein (Negative) Urine Glucose (UA) (Negative) Urine Ketones (Negative) Urine Blood (Negative) Urine Nitrate (Negative) Urine Bilirubin (Negative) Urine Urobilinogen (<2.0) mg/dL Ur Leukocyte Esterase (Negative) Aspergillus Ab (CompFix) (<1:8) 11/22/16 11/23/16 11/23/16 Range/Units 21:03 06:51 10:33 WBC (3.8-10.6) k/uL RBC (4.30-5.90) m/uL Hgb (13.0-17.5) gm/dL Hct (39.0-53.0) % MCV (80.0-100.0) fL MCH (25.0-35.0) pg MCHC (31.0-37.0) g/dL RDW (11.5-15.5) % Plt Count (150-450) k/uL Neutrophils % % Lymphocytes % % Monocytes % % Eosinophils % % Basophils % % Neutrophils # (1.3-7.7) k/uL Lymphocytes # (1.0-4.8) k/uL Monocytes # (0-1.0) k/uL Eosinophils # (0-0.7) k/uL Basophils # (0-0.2) k/uL Hypochromasia Sodium (137-145) mmol/L Potassium (3.5-5.1) mmol/L Chloride (98-107) mmol/L Carbon Dioxide (22-30) mmol/L Anion Gap mmol/L BUN (9-20) mg/dL Creatinine (0.66-1.25) mg/dL Est GFR (MDRD) Af Amer (>60 ml/min/1.73 sqM) Est GFR (MDRD) Non-Af (>60 ml/min/1.73 sqM) Glucose (74-99) mg/dL POC Glucose (mg/dL) 291 H 189 H (75-99) mg/dL POC Glu Patient Account Representative Halley Ruth Ashley [address] Glu mg/dL mg/dL Hemoglobin A1c (4.2-6.1) % Plasma Lactic Acid Diego 5.2 H* (0.7-2.0) mmol/L Calcium (8.4-10.2) mg/dL Phosphorus (2.5-4.5) mg/dL Magnesium (1.6-2.3) mg/dL Total Bilirubin (0.2-1.3) mg/dL AST (17-59) U/L ALT (21-72) U/L Alkaline Phosphatase (38-126) U/L Total Protein (6.3-8.2) g/dL Albumin (3.5-5.0) g/dL A.fumigatus Allerg IgE kU/L Urine Color Urine Appearance (Clear) Urine pH (5.0-8.0) Ur Specific [place] (1.001-1.035) Urine Protein (Negative) Urine Glucose (UA) (Negative) Urine Ketones (Negative) Urine Blood (Negative) Urine Nitrate (Negative) Urine Bilirubin (Negative) Urine Urobilinogen (<2.0) mg/dL Ur Leukocyte Esterase (Negative) Aspergillus Ab (CompFix) (<1:8) 11/23/16 11/23/16 11/23/16 Range/Units 11:48 14:45 17:23 WBC (3.8-10.6) k/uL RBC (4.30-5.90) m/uL Hgb (13.0-17.5) gm/dL Hct (39.0-53.0) % MCV (80.0-100.0) fL MCH (25.0-35.0) pg MCHC (31.0-37.0) g/dL RDW (11.5-15.5) % Plt Count (150-450) k/uL Neutrophils % % Lymphocytes % % Monocytes % % Eosinophils % % Basophils % % Neutrophils # (1.3-7.7) k/uL Lymphocytes # (1.0-4.8) k/uL Monocytes # (0-1.0) k/uL Eosinophils # (0-0.7) k/uL Basophils # (0-0.2) k/uL Hypochromasia Sodium (137-145) mmol/L Potassium (3.5-5.1) mmol/L Chloride (98-107) mmol/L Carbon Dioxide (22-30) mmol/L Anion Gap mmol/L BUN (9-20) mg/dL Creatinine (0.66-1.25) mg/dL Est GFR (MDRD) Af Amer (>60 ml/min/1.73 sqM) Est GFR (MDRD) Non-Af (>60 ml/min/1.73 sqM) Glucose (74-99) mg/dL POC Glucose (mg/dL) 215 H 223 H (75-99) mg/dL POC Glu Patient Account Representative Jolene Du Ashley [address]imated [address] Glu mg/dL mg/dL Hemoglobin A1c (4.2-6.1) % Plasma Lactic Acid Diego 4.4 H* (0.7-2.0) mmol/L Calcium (8.4-10.2) mg/dL Phosphorus (2.5-4.5) mg/dL Magnesium (1.6-2.3) mg/dL Total Bilirubin (0.2-1.3) mg/dL AST (17-59) U/L ALT (21-72) U/L Alkaline Phosphatase (38-126) U/L Total Protein (6.3-8.2) g/dL Albumin (3.5-5.0) g/dL A.fumigatus Allerg IgE kU/L Urine Color Urine Appearance (Clear) Urine pH (5.0-8.0) Ur Specific [place] (1.001-1.035) Urine Protein (Negative) Urine Glucose (UA) (Negative) Urine Ketones (Negative) Urine Blood (Negative) Urine Nitrate (Negative) Urine Bilirubin (Negative) Urine Urobilinogen (<2.0) mg/dL Ur Leukocyte Esterase (Negative) Aspergillus Ab (CompFix) (<1:8) 11/23/16 11/23/16 11/24/16 Range/Units 18:48 21:35 07:02 WBC (3.8-10.6) k/uL RBC (4.30-5.90) m/uL Hgb (13.0-17.5) gm/dL Hct (39.0-53.0) % MCV (80.0-100.0) fL MCH (25.0-35.0) pg MCHC (31.0-37.0) g/dL RDW (11.5-15.5) % Plt Count (150-450) k/uL Neutrophils % % Lymphocytes % % Monocytes % % Eosinophils % % Basophils % % Neutrophils # (1.3-7.7) k/uL Lymphocytes # (1.0-4.8) k/uL Monocytes # (0-1.0) k/uL Eosinophils # (0-0.7) k/uL Basophils # (0-0.2) k/uL Hypochromasia Sodium (137-145) mmol/L Potassium (3.5-5.1) mmol/L Chloride (98-107) mmol/L Carbon Dioxide (22-30) mmol/L Anion Gap mmol/L BUN (9-20) mg/dL Creatinine (0.66-1.25) mg/dL Est GFR (MDRD) Af Amer (>60 ml/min/1.73 sqM) Est GFR (MDRD) Non-Af (>60 ml/min/1.73 sqM) Glucose (74-99) mg/dL POC Glucose (mg/dL) 227 H 154 H (75-99) mg/dL POC Glu Patient Account Representative ID Yolanda Jasmine Estimated Ave Glu mg/dL mg/dL Hemoglobin A1c (4.2-6.1) % Plasma Lactic Acid Diego 3.0 H* (0.7-2.0) mmol/L Calcium (8.4-10.2) mg/dL Phosphorus (2.5-4.5) mg/dL Magnesium (1.6-2.3) mg/dL Total Bilirubin (0.2-1.3) mg/dL AST (17-59) U/L ALT (21-72) U/L Alkaline Phosphatase (38-126) U/L Total Protein (6.3-8.2) g/dL Albumin (3.5-5.0) g/dL A.fumigatus Allerg IgE kU/L Urine Color Urine Appearance (Clear) Urine pH (5.0-8.0) Ur Specific [place] (1.001-1.035) Urine Protein (Negative) Urine Glucose (UA) (Negative) Urine Ketones (Negative) Urine Blood (Negative) Urine Nitrate (Negative) Urine Bilirubin (Negative) Urine Urobilinogen (<2.0) mg/dL Ur Leukocyte Esterase (Negative) Aspergillus Ab (CompFix) (<1:8) 11/24/16 11/24/16 11/24/16 Range/Units 07:41 07:41 12:20 WBC 13.5 H (3.8-10.6) k/uL RBC 3.60 L (4.30-5.90) m/uL Hgb 11.1 L (13.0-17.5) gm/dL Hct 34.7 L (39.0-53.0) % MCV 96.3 (80.0-100.0) fL MCH 30.8 (25.0-35.0) pg MCHC 32.0 (31.0-37.0) g/dL RDW 13.1 (11.5-15.5) % Plt Count 162 (150-450) k/uL Neutrophils % % Lymphocytes % % Monocytes % % Eosinophils % % Basophils % % Neutrophils # (1.3-7.7) k/uL Lymphocytes # (1.0-4.8) k/uL Monocytes # (0-1.0) k/uL Eosinophils # (0-0.7) k/uL Basophils # (0-0.2) k/uL Hypochromasia Slight Sodium (137-145) mmol/L Potassium (3.5-5.1) mmol/L Chloride (98-107) mmol/L Carbon Dioxide (22-30) mmol/L Anion Gap mmol/L BUN (9-20) mg/dL Creatinine (0.66-1.25) mg/dL Est GFR (MDRD) Af Amer (>60 ml/min/1.73 sqM) Est GFR (MDRD) Non-Af (>60 ml/min/1.73 sqM) Glucose (74-99) mg/dL POC Glucose (mg/dL) 168 H (75-99) mg/dL POC Glu Patient Account Representative ID Estimated Ave Glu mg/dL mg/dL Hemoglobin A1c (4.2-6.1) % Plasma Lactic Acid Diego 2.4 H* (0.7-2.0) mmol/L Calcium (8.4-10.2) mg/dL Phosphorus (2.5-4.5) mg/dL Magnesium (1.6-2.3) mg/dL Total Bilirubin (0.2-1.3) mg/dL AST (17-59) U/L ALT (21-72) U/L Alkaline Phosphatase (38-126) U/L Total Protein (6.3-8.2) g/dL Albumin (3.5-5.0) g/dL A.fumigatus Allerg IgE kU/L Urine Color Urine Appearance (Clear) Urine pH (5.0-8.0) Ur Specific [place] (1.001-1.035) Urine Protein (Negative) Urine Glucose (UA) (Negative) Urine Ketones (Negative) Urine Blood (Negative) Urine Nitrate (Negative) Urine Bilirubin (Negative) Urine Urobilinogen (<2.0) mg/dL Ur Leukocyte Esterase (Negative) Aspergillus Ab (CompFix) (<1:8) 11/24/16 11/24/16 11/25/16 Range/Units 17:16 20:40 00:33 WBC (3.8-10.6) k/uL RBC (4.30-5.90) m/uL Hgb (13.0-17.5) gm/dL Hct (39.0-53.0) % MCV (80.0-100.0) fL MCH (25.0-35.0) pg MCHC (31.0-37.0) g/dL RDW (11.5-15.5) % Plt Count (150-450) k/uL Neutrophils % % Lymphocytes % % Monocytes % % Eosinophils % % Basophils % % Neutrophils # (1.3-7.7) k/uL Lymphocytes # (1.0-4.8) k/uL Monocytes # (0-1.0) k/uL Eosinophils # (0-0.7) k/uL Basophils # (0-0.2) k/uL Hypochromasia Sodium (137-145) mmol/L Potassium (3.5-5.1) mmol/L Chloride (98-107) mmol/L Carbon Dioxide (22-30) mmol/L Anion Gap mmol/L BUN (9-20) mg/dL Creatinine (0.66-1.25) mg/dL Est GFR (MDRD) Af Amer (>60 ml/min/1.73 sqM) Est GFR (MDRD) Non-Af (>60 ml/min/1.73 sqM) Glucose (74-99) mg/dL POC Glucose (mg/dL) 169 H 196 H (75-99) mg/dL POC Glu Patient Account Representative ID Yolanda Jasmine Estimated Ave Glu mg/dL mg/dL Hemoglobin A1c (4.2-6.1) % Plasma Lactic Acid Diego 1.7 (0.7-2.0) mmol/L Calcium (8.4-10.2) mg/dL Phosphorus (2.5-4.5) mg/dL Magnesium (1.6-2.3) mg/dL Total Bilirubin (0.2-1.3) mg/dL AST (17-59) U/L ALT (21-72) U/L Alkaline Phosphatase (38-126) U/L Total Protein (6.3-8.2) g/dL Albumin (3.5-5.0) g/dL A.fumigatus Allerg IgE kU/L Urine Color Urine Appearance (Clear) Urine pH (5.0-8.0) Ur Specific [place] (1.001-1.035) Urine Protein (Negative) Urine Glucose (UA) (Negative) Urine Ketones (Negative) Urine Blood (Negative) Urine Nitrate (Negative) Urine Bilirubin (Negative) Urine Urobilinogen (<2.0) mg/dL Ur Leukocyte Esterase (Negative) Aspergillus Ab (CompFix) (<1:8) 11/25/16 11/25/16 11/25/16 Range/Units 07:42 11:03 11:03 WBC 12.9 H (3.8-10.6) k/uL RBC 3.86 L (4.30-5.90) m/uL Hgb 11.8 L (13.0-17.5) gm/dL Hct 36.2 L (39.0-53.0) % MCV 93.6 (80.0-100.0) fL MCH 30.4 (25.0-35.0) pg MCHC 32.5 (31.0-37.0) g/dL RDW 13.1 (11.5-15.5) % Plt Count 164 (150-450) k/uL Neutrophils % 94 % Lymphocytes % 2 % Monocytes % 3 % Eosinophils % 0 % Basophils % 0 % Neutrophils # 12.2 H (1.3-7.7) k/uL Lymphocytes # 0.3 L (1.0-4.8) k/uL Monocytes # 0.4 (0-1.0) k/uL Eosinophils # 0.0 (0-0.7) k/uL Basophils # 0.0 (0-0.2) k/uL Hypochromasia Sodium 145 (137-145) mmol/L Potassium 4.1 (3.5-5.1) mmol/L Chloride 111 H (98-107) mmol/L Carbon Dioxide 22 (22-30) mmol/L Anion Gap 12 mmol/L BUN 34 H (9-20) mg/dL Creatinine 1.04 (0.66-1.25) mg/dL Est GFR (MDRD) Af Amer >60 (>60 ml/min/1.73 sqM) Est GFR (MDRD) Non-Af >60 (>60 ml/min/1.73 sqM) Glucose 200 H (74-99) mg/dL POC Glucose (mg/dL) 151 H (75-99) mg/dL POC Glu Patient Account Representative ID Ruth Wang Estimated Ave Glu mg/dL mg/dL Hemoglobin A1c (4.2-6.1) % Plasma Lactic Acid Diego (0.7-2.0) mmol/L Calcium 8.5 (8.4-10.2) mg/dL Phosphorus (2.5-4.5) mg/dL Magnesium (1.6-2.3) mg/dL Total Bilirubin (0.2-1.3) mg/dL AST (17-59) U/L ALT (21-72) U/L Alkaline Phosphatase (38-126) U/L Total Protein (6.3-8.2) g/dL Albumin (3.5-5.0) g/dL A.fumigatus Allerg IgE kU/L Urine Color Urine Appearance (Clear) Urine pH (5.0-8.0) Ur Specific [place] (1.001-1.035) Urine Protein (Negative) Urine Glucose (UA) (Negative) Urine Ketones (Negative) Urine Blood (Negative) Urine Nitrate (Negative) Urine Bilirubin (Negative) Urine Urobilinogen (<2.0) mg/dL Ur Leukocyte Esterase (Negative) Aspergillus Ab (CompFix) (<1:8) 11/25/16 11/25/16 11/25/16 Range/Units 11:19 14:16 17:31 WBC (3.8-10.6) k/uL RBC (4.30-5.90) m/uL Hgb (13.0-17.5) gm/dL Hct (39.0-53.0) % MCV (80.0-100.0) fL MCH (25.0-35.0) pg MCHC (31.0-37.0) g/dL RDW (11.5-15.5) % Plt Count (150-450) k/uL Neutrophils % % Lymphocytes % % Monocytes % % Eosinophils % % Basophils % % Neutrophils # (1.3-7.7) k/uL Lymphocytes # (1.0-4.8) k/uL Monocytes # (0-1.0) k/uL Eosinophils # (0-0.7) k/uL Basophils # (0-0.2) k/uL Hypochromasia Sodium (137-145) mmol/L Potassium (3.5-5.1) mmol/L Chloride (98-107) mmol/L Carbon Dioxide (22-30) mmol/L Anion Gap mmol/L BUN (9-20) mg/dL Creatinine (0.66-1.25) mg/dL Est GFR (MDRD) Af Amer (>60 ml/min/1.73 sqM) Est GFR (MDRD) Non-Af (>60 ml/min/1.73 sqM) Glucose (74-99) mg/dL POC Glucose (mg/dL) 180 H 130 H 135 H (75-99) mg/dL POC Glu Patient Account Representative ID Soledad Brunner, Niharika Gandara, Niharika Estimated Ave Glu mg/dL mg/dL Hemoglobin A1c (4.2-6.1) % Plasma Lactic Acid Diego (0.7-2.0) mmol/L Calcium (8.4-10.2) mg/dL Phosphorus (2.5-4.5) mg/dL Magnesium (1.6-2.3) mg/dL Total Bilirubin (0.2-1.3) mg/dL AST (17-59) U/L ALT (21-72) U/L Alkaline Phosphatase (38-126) U/L Total Protein (6.3-8.2) g/dL Albumin (3.5-5.0) g/dL A.fumigatus Allerg IgE kU/L Urine Color Urine Appearance (Clear) Urine pH (5.0-8.0) Ur Specific [place] (1.001-1.035) Urine Protein (Negative) Urine Glucose (UA) (Negative) Urine Ketones (Negative) Urine Blood (Negative) Urine Nitrate (Negative) Urine Bilirubin (Negative) Urine Urobilinogen (<2.0) mg/dL Ur Leukocyte Esterase (Negative) Aspergillus Ab (CompFix) (<1:8) 11/25/16 11/26/16 11/26/16 Range/Units 20:04 04:11 04:11 WBC 9.3 (3.8-10.6) k/uL RBC 3.74 L (4.30-5.90) m/uL Hgb 11.3 L (13.0-17.5) gm/dL Hct 34.7 L (39.0-53.0) % MCV 92.6 (80.0-100.0) fL MCH 30.1 (25.0-35.0) pg MCHC 32.4 (31.0-37.0) g/dL RDW 13.3 (11.5-15.5) % Plt Count 137 L (150-450) k/uL Neutrophils % 92 % Lymphocytes % 4 % Monocytes % 4 % Eosinophils % 0 % Basophils % 0 % Neutrophils # 8.6 H (1.3-7.7) k/uL Lymphocytes # 0.3 L (1.0-4.8) k/uL Monocytes # 0.4 (0-1.0) k/uL Eosinophils # 0.0 (0-0.7) k/uL Basophils # 0.0 (0-0.2) k/uL Hypochromasia Sodium 141 (137-145) mmol/L Potassium 3.9 (3.5-5.1) mmol/L Chloride 109 H (98-107) mmol/L Carbon Dioxide 25 (22-30) mmol/L Anion Gap 7 mmol/L BUN 41 H (9-20) mg/dL Creatinine 0.90 (0.66-1.25) mg/dL Est GFR (MDRD) Af Amer >60 (>60 ml/min/1.73 sqM) Est GFR (MDRD) Non-Af >60 (>60 ml/min/1.73 sqM) Glucose 131 H (74-99) mg/dL POC Glucose (mg/dL) 218 H (75-99) mg/dL POC Glu Patient Account Representative ID Christina Bryant [address]imated [address] Glu mg/dL mg/dL Hemoglobin A1c (4.2-6.1) % Plasma Lactic Acid [place] (0.7-2.0) mmol/L Calcium 8.5 (8.4-10.2) mg/dL Phosphorus 3.6 (2.5-4.5) mg/dL Magnesium 2.0 (1.6-2.3) mg/dL Total Bilirubin (0.2-1.3) mg/dL AST (17-59) U/L ALT (21-72) U/L Alkaline Phosphatase (38-126) U/L Total Protein (6.3-8.2) g/dL Albumin (3.5-5.0) g/dL A.fumigatus Allerg IgE kU/L Urine Color Urine Appearance (Clear) Urine pH (5.0-8.0) Ur Specific [place] (1.001-1.035) Urine Protein (Negative) Urine Glucose (UA) (Negative) Urine Ketones (Negative) Urine Blood (Negative) Urine Nitrate (Negative) Urine Bilirubin (Negative) Urine Urobilinogen (<2.0) mg/dL Ur Leukocyte Esterase (Negative) Aspergillus Ab (CompFix) (<1:8) 11/26/16 11/26/16 11/26/16 Range/Units 07:31 12:03 17:29 WBC (3.8-10.6) k/uL RBC (4.30-5.90) m/uL Hgb (13.0-17.5) gm/dL Hct (39.0-53.0) % MCV (80.0-100.0) fL MCH (25.0-35.0) pg MCHC (31.0-37.0) g/dL RDW (11.5-15.5) % Plt Count (150-450) k/uL Neutrophils % % Lymphocytes % % Monocytes % % Eosinophils % % Basophils % % Neutrophils # (1.3-7.7) k/uL Lymphocytes # (1.0-4.8) k/uL Monocytes # (0-1.0) k/uL Eosinophils # (0-0.7) k/uL Basophils # (0-0.2) k/uL Hypochromasia Sodium (137-145) mmol/L Potassium (3.5-5.1) mmol/L Chloride (98-107) mmol/L Carbon Dioxide (22-30) mmol/L Anion Gap mmol/L BUN (9-20) mg/dL Creatinine (0.66-1.25) mg/dL Est GFR (MDRD) Af Amer (>60 ml/min/1.73 sqM) Est GFR (MDRD) Non-Af (>60 ml/min/1.73 sqM) Glucose (74-99) mg/dL POC Glucose (mg/dL) 109 H 277 H 183 H (75-99) mg/dL POC Glu Patient Account Representative Sumaya Engle Kristie Greer, [place] [address] Glu mg/dL mg/dL Hemoglobin A1c (4.2-6.1) % Plasma Lactic Acid [place] (0.7-2.0) mmol/L Calcium (8.4-10.2) mg/dL Phosphorus (2.5-4.5) mg/dL Magnesium (1.6-2.3) mg/dL Total Bilirubin (0.2-1.3) mg/dL AST (17-59) U/L ALT (21-72) U/L Alkaline Phosphatase (38-126) U/L Total Protein (6.3-8.2) g/dL Albumin (3.5-5.0) g/dL A.fumigatus Allerg IgE kU/L Urine Color Urine Appearance (Clear) Urine pH (5.0-8.0) Ur Specific [place] (1.001-1.035) Urine Protein (Negative) Urine Glucose (UA) (Negative) Urine Ketones (Negative) Urine Blood (Negative) Urine Nitrate (Negative) Urine Bilirubin (Negative) Urine Urobilinogen (<2.0) mg/dL Ur Leukocyte Esterase (Negative) Aspergillus Ab (CompFix) (<1:8) 11/26/16 11/27/16 11/27/16 Range/Units 20:57 04:59 04:59 WBC 10.1 (3.8-10.6) k/uL RBC 3.94 L (4.30-5.90) m/uL Hgb 11.8 L (13.0-17.5) gm/dL Hct 36.8 L (39.0-53.0) % MCV 93.4 (80.0-100.0) fL MCH 29.9 (25.0-35.0) pg MCHC 32.0 (31.0-37.0) g/dL RDW 13.4 (11.5-15.5) % Plt Count 139 L (150-450) k/uL Neutrophils % 90 % Lymphocytes % 3 % Monocytes % 6 % Eosinophils % 0 % Basophils % 1 % Neutrophils # 9.1 H (1.3-7.7) k/uL Lymphocytes # 0.3 L (1.0-4.8) k/uL Monocytes # 0.6 (0-1.0) k/uL Eosinophils # 0.0 (0-0.7) k/uL Basophils # 0.1 (0-0.2) k/uL Hypochromasia Sodium 142 (137-145) mmol/L Potassium 4.1 (3.5-5.1) mmol/L Chloride 108 H (98-107) mmol/L Carbon Dioxide 27 (22-30) mmol/L Anion Gap 7 mmol/L BUN 41 H (9-20) mg/dL Creatinine 1.00 (0.66-1.25) mg/dL Est GFR (MDRD) Af Amer >60 (>60 ml/min/1.73 sqM) Est GFR (MDRD) Non-Af >60 (>60 ml/min/1.73 sqM) Glucose 90 (74-99) mg/dL POC Glucose (mg/dL) 191 H (75-99) mg/dL POC Glu Patient Account Representative ID Corina Rios [address]imated [address] Glu mg/dL mg/dL Hemoglobin A1c (4.2-6.1) % Plasma Lactic Acid [place] (0.7-2.0) mmol/L Calcium 8.5 (8.4-10.2) mg/dL Phosphorus 3.4 (2.5-4.5) mg/dL Magnesium 2.0 (1.6-2.3) mg/dL Total Bilirubin (0.2-1.3) mg/dL AST (17-59) U/L ALT (21-72) U/L Alkaline Phosphatase (38-126) U/L Total Protein (6.3-8.2) g/dL Albumin (3.5-5.0) g/dL A.fumigatus Allerg IgE kU/L Urine Color Urine Appearance (Clear) Urine pH (5.0-8.0) Ur Specific [place] (1.001-1.035) Urine Protein (Negative) Urine Glucose (UA) (Negative) Urine Ketones (Negative) Urine Blood (Negative) Urine Nitrate (Negative) Urine Bilirubin (Negative) Urine Urobilinogen (<2.0) mg/dL Ur Leukocyte Esterase (Negative) Aspergillus Ab (CompFix) (<1:8) 11/27/16 11/27/16 11/27/16 Range/Units 07:52 07:56 08:18 WBC (3.8-10.6) k/uL RBC (4.30-5.90) m/uL Hgb (13.0-17.5) gm/dL Hct (39.0-53.0) % MCV (80.0-100.0) fL MCH (25.0-35.0) pg MCHC (31.0-37.0) g/dL RDW (11.5-15.5) % Plt Count (150-450) k/uL Neutrophils % % Lymphocytes % % Monocytes % % Eosinophils % % Basophils % % Neutrophils # (1.3-7.7) k/uL Lymphocytes # (1.0-4.8) k/uL Monocytes # (0-1.0) k/uL Eosinophils # (0-0.7) k/uL Basophils # (0-0.2) k/uL Hypochromasia Sodium (137-145) mmol/L Potassium (3.5-5.1) mmol/L Chloride (98-107) mmol/L Carbon Dioxide (22-30) mmol/L Anion Gap mmol/L BUN (9-20) mg/dL Creatinine (0.66-1.25) mg/dL Est GFR (MDRD) Af Amer (>60 ml/min/1.73 sqM) Est GFR (MDRD) Non-Af (>60 ml/min/1.73 sqM) Glucose (74-99) mg/dL POC Glucose (mg/dL) 21 L 20 L 99 (75-99) mg/dL POC Glu Patient Account Representative ZACHARY Sotomayor, Carmen Sotomayor, Nya Best [address] Glu mg/dL mg/dL Hemoglobin A1c (4.2-6.1) % Plasma Lactic Acid Diego (0.7-2.0) mmol/L Calcium (8.4-10.2) mg/dL Phosphorus (2.5-4.5) mg/dL Magnesium (1.6-2.3) mg/dL Total Bilirubin (0.2-1.3) mg/dL AST (17-59) U/L ALT (21-72) U/L Alkaline Phosphatase (38-126) U/L Total Protein (6.3-8.2) g/dL Albumin (3.5-5.0) g/dL A.fumigatus Allerg IgE kU/L Urine Color Urine Appearance (Clear) Urine pH (5.0-8.0) Ur Specific [place] (1.001-1.035) Urine Protein (Negative) Urine Glucose (UA) (Negative) Urine Ketones (Negative) Urine Blood (Negative) Urine Nitrate (Negative) Urine Bilirubin (Negative) Urine Urobilinogen (<2.0) mg/dL Ur Leukocyte Esterase (Negative) Aspergillus Ab (CompFix) (<1:8) 11/27/16 11/27/16 11/27/16 Range/Units 11:30 11:32 11:50 WBC (3.8-10.6) k/uL RBC (4.30-5.90) m/uL Hgb (13.0-17.5) gm/dL Hct (39.0-53.0) % MCV (80.0-100.0) fL MCH (25.0-35.0) pg MCHC (31.0-37.0) g/dL RDW (11.5-15.5) % Plt Count (150-450) k/uL Neutrophils % % Lymphocytes % % Monocytes % % Eosinophils % % Basophils % % Neutrophils # (1.3-7.7) k/uL Lymphocytes # (1.0-4.8) k/uL Monocytes # (0-1.0) k/uL Eosinophils # (0-0.7) k/uL Basophils # (0-0.2) k/uL Hypochromasia Sodium (137-145) mmol/L Potassium (3.5-5.1) mmol/L Chloride (98-107) mmol/L Carbon Dioxide (22-30) mmol/L Anion Gap mmol/L BUN (9-20) mg/dL Creatinine (0.66-1.25) mg/dL Est GFR (MDRD) Af Amer (>60 ml/min/1.73 sqM) Est GFR (MDRD) Non-Af (>60 ml/min/1.73 sqM) Glucose (74-99) mg/dL POC Glucose (mg/dL) 28 L 30 L 103 H (75-99) mg/dL POC Glu Patient Account Representative Nya Lyons, Niharika Kyle [address] Glu mg/dL mg/dL Hemoglobin A1c (4.2-6.1) % Plasma Lactic Acid Diego (0.7-2.0) mmol/L Calcium (8.4-10.2) mg/dL Phosphorus (2.5-4.5) mg/dL Magnesium (1.6-2.3) mg/dL Total Bilirubin (0.2-1.3) mg/dL AST (17-59) U/L ALT (21-72) U/L Alkaline Phosphatase (38-126) U/L Total Protein (6.3-8.2) g/dL Albumin (3.5-5.0) g/dL A.fumigatus Allerg IgE kU/L Urine Color Urine Appearance (Clear) Urine pH (5.0-8.0) Ur Specific [place] (1.001-1.035) Urine Protein (Negative) Urine Glucose (UA) (Negative) Urine Ketones (Negative) Urine Blood (Negative) Urine Nitrate (Negative) Urine Bilirubin (Negative) Urine Urobilinogen (<2.0) mg/dL Ur Leukocyte Esterase (Negative) Aspergillus Ab (CompFix) (<1:8) 11/27/16 11/27/16 11/27/16 Range/Units 12:47 13:06 14:20 WBC (3.8-10.6) k/uL RBC (4.30-5.90) m/uL Hgb (13.0-17.5) gm/dL Hct (39.0-53.0) % MCV (80.0-100.0) fL MCH (25.0-35.0) pg MCHC (31.0-37.0) g/dL RDW (11.5-15.5) % Plt Count (150-450) k/uL Neutrophils % % Lymphocytes % % Monocytes % % Eosinophils % % Basophils % % Neutrophils # (1.3-7.7) k/uL Lymphocytes # (1.0-4.8) k/uL Monocytes # (0-1.0) k/uL Eosinophils # (0-0.7) k/uL Basophils # (0-0.2) k/uL Hypochromasia Sodium (137-145) mmol/L Potassium (3.5-5.1) mmol/L Chloride (98-107) mmol/L Carbon Dioxide (22-30) mmol/L Anion Gap mmol/L BUN (9-20) mg/dL Creatinine (0.66-1.25) mg/dL Est GFR (MDRD) Af Amer (>60 ml/min/1.73 sqM) Est GFR (MDRD) Non-Af (>60 ml/min/1.73 sqM) Glucose (74-99) mg/dL POC Glucose (mg/dL) 38 L 108 H 147 H (75-99) mg/dL POC Glu Patient Account Representative Nya Lyons Chrissy Beatty, Brittany [address] Glu mg/dL mg/dL Hemoglobin A1c (4.2-6.1) % Plasma Lactic Acid Diego (0.7-2.0) mmol/L Calcium (8.4-10.2) mg/dL Phosphorus (2.5-4.5) mg/dL Magnesium (1.6-2.3) mg/dL Total Bilirubin (0.2-1.3) mg/dL AST (17-59) U/L ALT (21-72) U/L Alkaline Phosphatase (38-126) U/L Total Protein (6.3-8.2) g/dL Albumin (3.5-5.0) g/dL A.fumigatus Allerg IgE kU/L Urine Color Urine Appearance (Clear) Urine pH (5.0-8.0) Ur Specific [place] (1.001-1.035) Urine Protein (Negative) Urine Glucose (UA) (Negative) Urine Ketones (Negative) Urine Blood (Negative) Urine Nitrate (Negative) Urine Bilirubin (Negative) Urine Urobilinogen (<2.0) mg/dL Ur Leukocyte Esterase (Negative) Aspergillus Ab (CompFix) (<1:8) 11/27/16 11/27/16 11/27/16 Range/Units 15:36 16:23 18:08 WBC (3.8-10.6) k/uL RBC (4.30-5.90) m/uL Hgb (13.0-17.5) gm/dL Hct (39.0-53.0) % MCV (80.0-100.0) fL MCH (25.0-35.0) pg MCHC (31.0-37.0) g/dL RDW (11.5-15.5) % Plt Count (150-450) k/uL Neutrophils % % Lymphocytes % % Monocytes % % Eosinophils % % Basophils % % Neutrophils # (1.3-7.7) k/uL Lymphocytes # (1.0-4.8) k/uL Monocytes # (0-1.0) k/uL Eosinophils # (0-0.7) k/uL Basophils # (0-0.2) k/uL Hypochromasia Sodium (137-145) mmol/L Potassium (3.5-5.1) mmol/L Chloride (98-107) mmol/L Carbon Dioxide (22-30) mmol/L Anion Gap mmol/L BUN (9-20) mg/dL Creatinine (0.66-1.25) mg/dL Est GFR (MDRD) Af Amer (>60 ml/min/1.73 sqM) Est GFR (MDRD) Non-Af (>60 ml/min/1.73 sqM) Glucose (74-99) mg/dL POC Glucose (mg/dL) 158 H 155 H 165 H (75-99) mg/dL POC Glu Patient Account Representative ZACHARY Joseph, Nya Gandara, Niharika Gandara, Niharika [address] Glu mg/dL mg/dL Hemoglobin A1c (4.2-6.1) % Plasma Lactic Acid Diego (0.7-2.0) mmol/L Calcium (8.4-10.2) mg/dL Phosphorus (2.5-4.5) mg/dL Magnesium (1.6-2.3) mg/dL Total Bilirubin (0.2-1.3) mg/dL AST (17-59) U/L ALT (21-72) U/L Alkaline Phosphatase (38-126) U/L Total Protein (6.3-8.2) g/dL Albumin (3.5-5.0) g/dL A.fumigatus Allerg IgE kU/L Urine Color Urine Appearance (Clear) Urine pH (5.0-8.0) Ur Specific [place] (1.001-1.035) Urine Protein (Negative) Urine Glucose (UA) (Negative) Urine Ketones (Negative) Urine Blood (Negative) Urine Nitrate (Negative) Urine Bilirubin (Negative) Urine Urobilinogen (<2.0) mg/dL Ur Leukocyte Esterase (Negative) Aspergillus Ab (CompFix) (<1:8) 11/27/16 11/28/16 11/28/16 Range/Units 20:13 00:13 04:59 WBC 11.1 H (3.8-10.6) k/uL RBC 3.76 L (4.30-5.90) m/uL Hgb 11.3 L (13.0-17.5) gm/dL Hct 35.0 L (39.0-53.0) % MCV 93.2 (80.0-100.0) fL MCH 30.1 (25.0-35.0) pg MCHC 32.3 (31.0-37.0) g/dL RDW 13.5 (11.5-15.5) % Plt Count 135 L (150-450) k/uL Neutrophils % 93 % Lymphocytes % 3 % Monocytes % 3 % Eosinophils % 0 % Basophils % 0 % Neutrophils # 10.3 H (1.3-7.7) k/uL Lymphocytes # 0.3 L (1.0-4.8) k/uL Monocytes # 0.4 (0-1.0) k/uL Eosinophils # 0.0 (0-0.7) k/uL Basophils # 0.0 (0-0.2) k/uL Hypochromasia Sodium (137-145) mmol/L Potassium (3.5-5.1) mmol/L Chloride (98-107) mmol/L Carbon Dioxide (22-30) mmol/L Anion Gap mmol/L BUN (9-20) mg/dL Creatinine (0.66-1.25) mg/dL Est GFR (MDRD) Af Amer (>60 ml/min/1.73 sqM) Est GFR (MDRD) Non-Af (>60 ml/min/1.73 sqM) Glucose (74-99) mg/dL POC Glucose (mg/dL) 246 H 224 H (75-99) mg/dL POC Glu Patient Account Representative Christina Montero Lisa [address] Glu mg/dL mg/dL Hemoglobin A1c (4.2-6.1) % Plasma Lactic Acid Diego (0.7-2.0) mmol/L Calcium (8.4-10.2) mg/dL Phosphorus (2.5-4.5) mg/dL Magnesium (1.6-2.3) mg/dL Total Bilirubin (0.2-1.3) mg/dL AST (17-59) U/L ALT (21-72) U/L Alkaline Phosphatase (38-126) U/L Total Protein (6.3-8.2) g/dL Albumin (3.5-5.0) g/dL A.fumigatus Allerg IgE kU/L Urine Color Urine Appearance (Clear) Urine pH (5.0-8.0) Ur Specific [place] (1.001-1.035) Urine Protein (Negative) Urine Glucose (UA) (Negative) Urine Ketones (Negative) Urine Blood (Negative) Urine Nitrate (Negative) Urine Bilirubin (Negative) Urine Urobilinogen (<2.0) mg/dL Ur Leukocyte Esterase (Negative) Aspergillus Ab (CompFix) (<1:8) 11/28/16 11/28/16 11/28/16 Range/Units 04:59 04:59 04:59 WBC (3.8-10.6) k/uL RBC (4.30-5.90) m/uL Hgb (13.0-17.5) gm/dL Hct (39.0-53.0) % MCV (80.0-100.0) fL MCH (25.0-35.0) pg MCHC (31.0-37.0) g/dL RDW (11.5-15.5) % Plt Count (150-450) k/uL Neutrophils % % Lymphocytes % % Monocytes % % Eosinophils % % Basophils % % Neutrophils # (1.3-7.7) k/uL Lymphocytes # (1.0-4.8) k/uL Monocytes # (0-1.0) k/uL Eosinophils # (0-0.7) k/uL Basophils # (0-0.2) k/uL Hypochromasia Sodium 140 (137-145) mmol/L Potassium 4.2 (3.5-5.1) mmol/L Chloride 105 (98-107) mmol/L Carbon Dioxide 27 (22-30) mmol/L Anion Gap 8 mmol/L BUN 40 H (9-20) mg/dL Creatinine 1.10 (0.66-1.25) mg/dL Est GFR (MDRD) Af Amer >60 (>60 ml/min/1.73 sqM) Est GFR (MDRD) Non-Af >60 (>60 ml/min/1.73 sqM) Glucose 202 H (74-99) mg/dL POC Glucose (mg/dL) (75-99) mg/dL POC Glu Patient Account Representative ID Estimated Ave Glu mg/dL mg/dL Hemoglobin A1c (4.2-6.1) % Plasma Lactic Acid Diego (0.7-2.0) mmol/L Calcium 8.1 L (8.4-10.2) mg/dL Phosphorus 3.7 (2.5-4.5) mg/dL Magnesium 1.9 (1.6-2.3) mg/dL Total Bilirubin (0.2-1.3) mg/dL AST (17-59) U/L ALT (21-72) U/L Alkaline Phosphatase (38-126) U/L Total Protein (6.3-8.2) g/dL Albumin (3.5-5.0) g/dL A.fumigatus Allerg IgE 2.11 kU/L Urine Color Urine Appearance (Clear) Urine pH (5.0-8.0) Ur Specific [place] (1.001-1.035) Urine Protein (Negative) Urine Glucose (UA) (Negative) Urine Ketones (Negative) Urine Blood (Negative) Urine Nitrate (Negative) Urine Bilirubin (Negative) Urine Urobilinogen (<2.0) mg/dL Ur Leukocyte Esterase (Negative) Aspergillus Ab (CompFix) <1:8 (<1:8) 11/28/16 11/28/16 11/28/16 Range/Units 07:41 12:33 13:41 WBC (3.8-10.6) k/uL RBC (4.30-5.90) m/uL Hgb (13.0-17.5) gm/dL Hct (39.0-53.0) % MCV (80.0-100.0) fL MCH (25.0-35.0) pg MCHC (31.0-37.0) g/dL RDW (11.5-15.5) % Plt Count (150-450) k/uL Neutrophils % % Lymphocytes % % Monocytes % % Eosinophils % % Basophils % % Neutrophils # (1.3-7.7) k/uL Lymphocytes # (1.0-4.8) k/uL Monocytes # (0-1.0) k/uL Eosinophils # (0-0.7) k/uL Basophils # (0-0.2) k/uL Hypochromasia Sodium (137-145) mmol/L Potassium (3.5-5.1) mmol/L Chloride (98-107) mmol/L Carbon Dioxide (22-30) mmol/L Anion Gap mmol/L BUN (9-20) mg/dL Creatinine (0.66-1.25) mg/dL Est GFR (MDRD) Af Amer (>60 ml/min/1.73 sqM) Est GFR (MDRD) Non-Af (>60 ml/min/1.73 sqM) Glucose (74-99) mg/dL POC Glucose (mg/dL) 209 H 278 H 344 H (75-99) mg/dL POC Glu Patient Account Representative ZACHARY Sotomayor, Carmen Telloiott, Jeny Stephan, Jeny [address] Glu mg/dL mg/dL Hemoglobin A1c (4.2-6.1) % Plasma Lactic Acid Diego (0.7-2.0) mmol/L Calcium (8.4-10.2) mg/dL Phosphorus (2.5-4.5) mg/dL Magnesium (1.6-2.3) mg/dL Total Bilirubin (0.2-1.3) mg/dL AST (17-59) U/L ALT (21-72) U/L Alkaline Phosphatase (38-126) U/L Total Protein (6.3-8.2) g/dL Albumin (3.5-5.0) g/dL A.fumigatus Allerg IgE kU/L Urine Color Urine Appearance (Clear) Urine pH (5.0-8.0) Ur Specific [place] (1.001-1.035) Urine Protein (Negative) Urine Glucose (UA) (Negative) Urine Ketones (Negative) Urine Blood (Negative) Urine Nitrate (Negative) Urine Bilirubin (Negative) Urine Urobilinogen (<2.0) mg/dL Ur Leukocyte Esterase (Negative) Aspergillus Ab (CompFix) (<1:8) 11/28/16 11/28/16 11/28/16 Range/Units 14:26 15:29 16:13 WBC (3.8-10.6) k/uL RBC (4.30-5.90) m/uL Hgb (13.0-17.5) gm/dL Hct (39.0-53.0) % MCV (80.0-100.0) fL MCH (25.0-35.0) pg MCHC (31.0-37.0) g/dL RDW (11.5-15.5) % Plt Count (150-450) k/uL Neutrophils % % Lymphocytes % % Monocytes % % Eosinophils % % Basophils % % Neutrophils # (1.3-7.7) k/uL Lymphocytes # (1.0-4.8) k/uL Monocytes # (0-1.0) k/uL Eosinophils # (0-0.7) k/uL Basophils # (0-0.2) k/uL Hypochromasia Sodium (137-145) mmol/L Potassium (3.5-5.1) mmol/L Chloride (98-107) mmol/L Carbon Dioxide (22-30) mmol/L Anion Gap mmol/L BUN (9-20) mg/dL Creatinine (0.66-1.25) mg/dL Est GFR (MDRD) Af Amer (>60 ml/min/1.73 sqM) Est GFR (MDRD) Non-Af (>60 ml/min/1.73 sqM) Glucose (74-99) mg/dL POC Glucose (mg/dL) 312 H 323 H 319 H (75-99) mg/dL POC Glu Patient Account Representative ZACHARY Sotomayor, Carmen Joseph, Nya Joseph, Nya [address] Glu mg/dL mg/dL Hemoglobin A1c (4.2-6.1) % Plasma Lactic Acid Diego (0.7-2.0) mmol/L Calcium (8.4-10.2) mg/dL Phosphorus (2.5-4.5) mg/dL Magnesium (1.6-2.3) mg/dL Total Bilirubin (0.2-1.3) mg/dL AST (17-59) U/L ALT (21-72) U/L Alkaline Phosphatase (38-126) U/L Total Protein (6.3-8.2) g/dL Albumin (3.5-5.0) g/dL A.fumigatus Allerg IgE kU/L Urine Color Urine Appearance (Clear) Urine pH (5.0-8.0) Ur Specific [place] (1.001-1.035) Urine Protein (Negative) Urine Glucose (UA) (Negative) Urine Ketones (Negative) Urine Blood (Negative) Urine Nitrate (Negative) Urine Bilirubin (Negative) Urine Urobilinogen (<2.0) mg/dL Ur Leukocyte Esterase (Negative) Aspergillus Ab (CompFix) (<1:8) 12/30/16 12/30/16 12/30/16 Range/Units 16:46 17:41 19:35 WBC (3.8-10.6) k/uL RBC (4.30-5.90) m/uL Hgb (13.0-17.5) gm/dL Hct (39.0-53.0) % MCV (80.0-100.0) fL MCH (25.0-35.0) pg MCHC (31.0-37.0) g/dL RDW (11.5-15.5) % Plt Count (150-450) k/uL Neutrophils % % Lymphocytes % % Monocytes % % Eosinophils % % Basophils % % Neutrophils # (1.3-7.7) k/uL Lymphocytes # (1.0-4.8) k/uL Monocytes # (0-1.0) k/uL Eosinophils # (0-0.7) k/uL Basophils # (0-0.2) k/uL Hypochromasia Sodium (137-145) mmol/L Potassium (3.5-5.1) mmol/L Chloride (98-107) mmol/L Carbon Dioxide (22-30) mmol/L Anion Gap mmol/L BUN (9-20) mg/dL Creatinine (0.66-1.25) mg/dL Est GFR (MDRD) Af Amer (>60 ml/min/1.73 sqM) Est GFR (MDRD) Non-Af (>60 ml/min/1.73 sqM) Glucose (74-99) mg/dL POC Glucose (mg/dL) 289 H 210 H 212 H (75-99) mg/dL POC Glu Patient Account Representative ZACHARY Sotomayor, Carmen Sotomayor, Carmen Clark, Darby [address] Glu mg/dL mg/dL Hemoglobin A1c (4.2-6.1) % Plasma Lactic Acid Diego (0.7-2.0) mmol/L Calcium (8.4-10.2) mg/dL Phosphorus (2.5-4.5) mg/dL Magnesium (1.6-2.3) mg/dL Total Bilirubin (0.2-1.3) mg/dL AST (17-59) U/L ALT (21-72) U/L Alkaline Phosphatase (38-126) U/L Total Protein (6.3-8.2) g/dL Albumin (3.5-5.0) g/dL A.fumigatus Allerg IgE kU/L Urine Color Urine Appearance (Clear) Urine pH (5.0-8.0) Ur Specific [place] (1.001-1.035) Urine Protein (Negative) Urine Glucose (UA) (Negative) Urine Ketones (Negative) Urine Blood (Negative) Urine Nitrate (Negative) Urine Bilirubin (Negative) Urine Urobilinogen (<2.0) mg/dL Ur Leukocyte Esterase (Negative) Aspergillus Ab (CompFix) (<1:8) 11/28/16 11/28/16 11/29/16 Range/Units 21:05 23:04 01:09 WBC (3.8-10.6) k/uL RBC (4.30-5.90) m/uL Hgb (13.0-17.5) gm/dL Hct (39.0-53.0) % MCV (80.0-100.0) fL MCH (25.0-35.0) pg MCHC (31.0-37.0) g/dL RDW (11.5-15.5) % Plt Count (150-450) k/uL Neutrophils % % Lymphocytes % % Monocytes % % Eosinophils % % Basophils % % Neutrophils # (1.3-7.7) k/uL Lymphocytes # (1.0-4.8) k/uL Monocytes # (0-1.0) k/uL Eosinophils # (0-0.7) k/uL Basophils # (0-0.2) k/uL Hypochromasia Sodium (137-145) mmol/L Potassium (3.5-5.1) mmol/L Chloride (98-107) mmol/L Carbon Dioxide (22-30) mmol/L Anion Gap mmol/L BUN (9-20) mg/dL Creatinine (0.66-1.25) mg/dL Est GFR (MDRD) Af Amer (>60 ml/min/1.73 sqM) Est GFR (MDRD) Non-Af (>60 ml/min/1.73 sqM) Glucose (74-99) mg/dL POC Glucose (mg/dL) 196 H 211 H 171 H (75-99) mg/dL POC Glu Patient Account Representative ZACHARY Clark, Darby Spain, Celestina Spain, Celestina [address] Glu mg/dL mg/dL Hemoglobin A1c (4.2-6.1) % Plasma Lactic Acid Diego (0.7-2.0) mmol/L Calcium (8.4-10.2) mg/dL Phosphorus (2.5-4.5) mg/dL Magnesium (1.6-2.3) mg/dL Total Bilirubin (0.2-1.3) mg/dL AST (17-59) U/L ALT (21-72) U/L Alkaline Phosphatase (38-126) U/L Total Protein (6.3-8.2) g/dL Albumin (3.5-5.0) g/dL A.fumigatus Allerg IgE kU/L Urine Color Urine Appearance (Clear) Urine pH (5.0-8.0) Ur Specific [place] (1.001-1.035) Urine Protein (Negative) Urine Glucose (UA) (Negative) Urine Ketones (Negative) Urine Blood (Negative) Urine Nitrate (Negative) Urine Bilirubin (Negative) Urine Urobilinogen (<2.0) mg/dL Ur Leukocyte Esterase (Negative) Aspergillus Ab (CompFix) (<1:8) 11/29/16 11/29/16 11/29/16 Range/Units 03:27 04:56 06:26 WBC (3.8-10.6) k/uL RBC (4.30-5.90) m/uL Hgb (13.0-17.5) gm/dL Hct (39.0-53.0) % MCV (80.0-100.0) fL MCH (25.0-35.0) pg MCHC (31.0-37.0) g/dL RDW (11.5-15.5) % Plt Count (150-450) k/uL Neutrophils % % Lymphocytes % % Monocytes % % Eosinophils % % Basophils % % Neutrophils # (1.3-7.7) k/uL Lymphocytes # (1.0-4.8) k/uL Monocytes # (0-1.0) k/uL Eosinophils # (0-0.7) k/uL Basophils # (0-0.2) k/uL Hypochromasia Sodium (137-145) mmol/L Potassium (3.5-5.1) mmol/L Chloride (98-107) mmol/L Carbon Dioxide (22-30) mmol/L Anion Gap mmol/L BUN (9-20) mg/dL Creatinine (0.66-1.25) mg/dL Est GFR (MDRD) Af Amer (>60 ml/min/1.73 sqM) Est GFR (MDRD) Non-Af (>60 ml/min/1.73 sqM) Glucose (74-99) mg/dL POC Glucose (mg/dL) 130 H 107 H 128 H (75-99) mg/dL POC Glu Patient Account Representative ID Grabiel, Celestina Grabiel, Celestina Grabiel, Celestina [address] Glu mg/dL mg/dL Hemoglobin A1c (4.2-6.1) % Plasma Lactic Acid Diego (0.7-2.0) mmol/L Calcium (8.4-10.2) mg/dL Phosphorus (2.5-4.5) mg/dL Magnesium (1.6-2.3) mg/dL Total Bilirubin (0.2-1.3) mg/dL AST (17-59) U/L ALT (21-72) U/L Alkaline Phosphatase (38-126) U/L Total Protein (6.3-8.2) g/dL Albumin (3.5-5.0) g/dL A.fumigatus Allerg IgE kU/L Urine Color Urine Appearance (Clear) Urine pH (5.0-8.0) Ur Specific [place] (1.001-1.035) Urine Protein (Negative) Urine Glucose (UA) (Negative) Urine Ketones (Negative) Urine Blood (Negative) Urine Nitrate (Negative) Urine Bilirubin (Negative) Urine Urobilinogen (<2.0) mg/dL Ur Leukocyte Esterase (Negative) Aspergillus Ab (CompFix) (<1:8) 11/29/16 11/29/16 11/29/16 Range/Units 07:06 07:06 07:25 WBC 10.2 (3.8-10.6) k/uL RBC 3.80 L (4.30-5.90) m/uL Hgb 11.2 L (13.0-17.5) gm/dL Hct 36.3 L (39.0-53.0) % MCV 95.6 (80.0-100.0) fL MCH 29.6 (25.0-35.0) pg MCHC 30.9 L (31.0-37.0) g/dL RDW 13.9 (11.5-15.5) % Plt Count 133 L (150-450) k/uL Neutrophils % 92 % Lymphocytes % 2 % Monocytes % 5 % Eosinophils % 0 % Basophils % 0 % Neutrophils # 9.4 H (1.3-7.7) k/uL Lymphocytes # 0.2 L (1.0-4.8) k/uL Monocytes # 0.5 (0-1.0) k/uL Eosinophils # 0.0 (0-0.7) k/uL Basophils # 0.0 (0-0.2) k/uL Hypochromasia Sodium 144 (137-145) mmol/L Potassium 4.2 (3.5-5.1) mmol/L Chloride 107 (98-107) mmol/L Carbon Dioxide 29 (22-30) mmol/L Anion Gap 8 mmol/L BUN 32 H (9-20) mg/dL Creatinine 0.98 (0.66-1.25) mg/dL Est GFR (MDRD) Af Amer >60 (>60 ml/min/1.73 sqM) Est GFR (MDRD) Non-Af >60 (>60 ml/min/1.73 sqM) Glucose 147 H (74-99) mg/dL POC Glucose (mg/dL) 150 H (75-99) mg/dL POC Glu Patient Account Representative ID Bebe Blood Estimated Ave Glu mg/dL mg/dL Hemoglobin A1c (4.2-6.1) % Plasma Lactic Acid Diego (0.7-2.0) mmol/L Calcium 8.2 L (8.4-10.2) mg/dL Phosphorus 3.6 (2.5-4.5) mg/dL Magnesium 2.1 (1.6-2.3) mg/dL Total Bilirubin (0.2-1.3) mg/dL AST (17-59) U/L ALT (21-72) U/L Alkaline Phosphatase (38-126) U/L Total Protein (6.3-8.2) g/dL Albumin (3.5-5.0) g/dL A.fumigatus Allerg IgE kU/L Urine Color Urine Appearance (Clear) Urine pH (5.0-8.0) Ur Specific [place] (1.001-1.035) Urine Protein (Negative) Urine Glucose (UA) (Negative) Urine Ketones (Negative) Urine Blood (Negative) Urine Nitrate (Negative) Urine Bilirubin (Negative) Urine Urobilinogen (<2.0) mg/dL Ur Leukocyte Esterase (Negative) Aspergillus Ab (CompFix) (<1:8) 11/29/16 11/29/16 11/29/16 Range/Units 09:30 11:25 12:37 WBC (3.8-10.6) k/uL RBC (4.30-5.90) m/uL Hgb (13.0-17.5) gm/dL Hct (39.0-53.0) % MCV (80.0-100.0) fL MCH (25.0-35.0) pg MCHC (31.0-37.0) g/dL RDW (11.5-15.5) % Plt Count (150-450) k/uL Neutrophils % % Lymphocytes % % Monocytes % % Eosinophils % % Basophils % % Neutrophils # (1.3-7.7) k/uL Lymphocytes # (1.0-4.8) k/uL Monocytes # (0-1.0) k/uL Eosinophils # (0-0.7) k/uL Basophils # (0-0.2) k/uL Hypochromasia Sodium (137-145) mmol/L Potassium (3.5-5.1) mmol/L Chloride (98-107) mmol/L Carbon Dioxide (22-30) mmol/L Anion Gap mmol/L BUN (9-20) mg/dL Creatinine (0.66-1.25) mg/dL Est GFR (MDRD) Af Amer (>60 ml/min/1.73 sqM) Est GFR (MDRD) Non-Af (>60 ml/min/1.73 sqM) Glucose (74-99) mg/dL POC Glucose (mg/dL) 281 H 224 H 143 H (75-99) mg/dL POC Glu Patient Account Representative ZACHARY Blood, Bebe Sutton Estimated Ave Glu mg/dL mg/dL Hemoglobin A1c (4.2-6.1) % Plasma Lactic Acid [place] (0.7-2.0) mmol/L Calcium (8.4-10.2) mg/dL Phosphorus (2.5-4.5) mg/dL Magnesium (1.6-2.3) mg/dL Total Bilirubin (0.2-1.3) mg/dL AST (17-59) U/L ALT (21-72) U/L Alkaline Phosphatase (38-126) U/L Total Protein (6.3-8.2) g/dL Albumin (3.5-5.0) g/dL A.fumigatus Allerg IgE kU/L Urine Color Urine Appearance (Clear) Urine pH (5.0-8.0) Ur Specific [place] (1.001-1.035) Urine Protein (Negative) Urine Glucose (UA) (Negative) Urine Ketones (Negative) Urine Blood (Negative) Urine Nitrate (Negative) Urine Bilirubin (Negative) Urine Urobilinogen (<2.0) mg/dL Ur Leukocyte Esterase (Negative) Aspergillus Ab (CompFix) (<1:8) 11/29/16 11/29/16 11/30/16 Range/Units 16:58 20:09 07:00 WBC (3.8-10.6) k/uL RBC (4.30-5.90) m/uL Hgb (13.0-17.5) gm/dL Hct (39.0-53.0) % MCV (80.0-100.0) fL MCH (25.0-35.0) pg MCHC (31.0-37.0) g/dL RDW (11.5-15.5) % Plt Count (150-450) k/uL Neutrophils % % Lymphocytes % % Monocytes % % Eosinophils % % Basophils % % Neutrophils # (1.3-7.7) k/uL Lymphocytes # (1.0-4.8) k/uL Monocytes # (0-1.0) k/uL Eosinophils # (0-0.7) k/uL Basophils # (0-0.2) k/uL Hypochromasia Sodium (137-145) mmol/L Potassium (3.5-5.1) mmol/L Chloride (98-107) mmol/L Carbon Dioxide (22-30) mmol/L Anion Gap mmol/L BUN (9-20) mg/dL Creatinine (0.66-1.25) mg/dL Est GFR (MDRD) Af Amer (>60 ml/min/1.73 sqM) Est GFR (MDRD) Non-Af (>60 ml/min/1.73 sqM) Glucose (74-99) mg/dL POC Glucose (mg/dL) 238 H 294 H 256 H (75-99) mg/dL POC Glu Patient Account Representative ZACHARY Blood, Bebe Weber, Rosemary Blood, Bebe Estimated Ave Glu mg/dL mg/dL Hemoglobin A1c (4.2-6.1) % Plasma Lactic Acid [place] (0.7-2.0) mmol/L Calcium (8.4-10.2) mg/dL Phosphorus (2.5-4.5) mg/dL Magnesium (1.6-2.3) mg/dL Total Bilirubin (0.2-1.3) mg/dL AST (17-59) U/L ALT (21-72) U/L Alkaline Phosphatase (38-126) U/L Total Protein (6.3-8.2) g/dL Albumin (3.5-5.0) g/dL A.fumigatus Allerg IgE kU/L Urine Color Urine Appearance (Clear) Urine pH (5.0-8.0) Ur Specific [place] (1.001-1.035) Urine Protein (Negative) Urine Glucose (UA) (Negative) Urine Ketones (Negative) Urine Blood (Negative) Urine Nitrate (Negative) Urine Bilirubin (Negative) Urine Urobilinogen (<2.0) mg/dL Ur Leukocyte Esterase (Negative) Aspergillus Ab (CompFix) (<1:8) 11/30/16 11/30/16 11/30/16 Range/Units 07:40 07:40 11:15 WBC 8.8 (3.8-10.6) k/uL RBC 3.55 L (4.30-5.90) m/uL Hgb 10.7 L (13.0-17.5) gm/dL Hct 33.2 L (39.0-53.0) % MCV 93.5 (80.0-100.0) fL MCH 30.2 (25.0-35.0) pg MCHC 32.3 (31.0-37.0) g/dL RDW 13.9 (11.5-15.5) % Plt Count 119 L (150-450) k/uL Neutrophils % 93 % Lymphocytes % 2 % Monocytes % 4 % Eosinophils % 0 % Basophils % 0 % Neutrophils # 8.1 H (1.3-7.7) k/uL Lymphocytes # 0.2 L (1.0-4.8) k/uL Monocytes # 0.4 (0-1.0) k/uL Eosinophils # 0.0 (0-0.7) k/uL Basophils # 0.0 (0-0.2) k/uL Hypochromasia Sodium 141 (137-145) mmol/L Potassium 4.3 (3.5-5.1) mmol/L Chloride 109 H (98-107) mmol/L Carbon Dioxide 23 (22-30) mmol/L Anion Gap 9 mmol/L BUN 37 H (9-20) mg/dL Creatinine 0.90 (0.66-1.25) mg/dL Est GFR (MDRD) Af Amer >60 (>60 ml/min/1.73 sqM) Est GFR (MDRD) Non-Af >60 (>60 ml/min/1.73 sqM) Glucose 261 H (74-99) mg/dL POC Glucose (mg/dL) 329 H (75-99) mg/dL POC Glu Patient Account Representative ID Bebe Blood Estimated Ave Glu mg/dL mg/dL Hemoglobin A1c (4.2-6.1) % Plasma Lactic Acid [place] (0.7-2.0) mmol/L Calcium 8.4 (8.4-10.2) mg/dL Phosphorus 3.8 (2.5-4.5) mg/dL Magnesium 2.1 (1.6-2.3) mg/dL Total Bilirubin (0.2-1.3) mg/dL AST (17-59) U/L ALT (21-72) U/L Alkaline Phosphatase (38-126) U/L Total Protein (6.3-8.2) g/dL Albumin (3.5-5.0) g/dL A.fumigatus Allerg IgE kU/L Urine Color Urine Appearance (Clear) Urine pH (5.0-8.0) Ur Specific [place] (1.001-1.035) Urine Protein (Negative) Urine Glucose (UA) (Negative) Urine Ketones (Negative) Urine Blood (Negative) Urine Nitrate (Negative) Urine Bilirubin (Negative) Urine Urobilinogen (<2.0) mg/dL Ur Leukocyte Esterase (Negative) Aspergillus Ab (CompFix) (<1:8) 11/30/16 11/30/16 11/30/16 Range/Units 13:06 13:27 14:00 WBC (3.8-10.6) k/uL RBC (4.30-5.90) m/uL Hgb (13.0-17.5) gm/dL Hct (39.0-53.0) % MCV (80.0-100.0) fL MCH (25.0-35.0) pg MCHC (31.0-37.0) g/dL RDW (11.5-15.5) % Plt Count (150-450) k/uL Neutrophils % % Lymphocytes % % Monocytes % % Eosinophils % % Basophils % % Neutrophils # (1.3-7.7) k/uL Lymphocytes # (1.0-4.8) k/uL Monocytes # (0-1.0) k/uL Eosinophils # (0-0.7) k/uL Basophils # (0-0.2) k/uL Hypochromasia Sodium (137-145) mmol/L Potassium (3.5-5.1) mmol/L Chloride (98-107) mmol/L Carbon Dioxide (22-30) mmol/L Anion Gap mmol/L BUN (9-20) mg/dL Creatinine (0.66-1.25) mg/dL Est GFR (MDRD) Af Amer (>60 ml/min/1.73 sqM) Est GFR (MDRD) Non-Af (>60 ml/min/1.73 sqM) Glucose (74-99) mg/dL POC Glucose (mg/dL) 308 H 290 H 285 H (75-99) mg/dL POC Glu Patient Account Representative Maryjane Osborne, Aric Egan [address] Glu mg/dL mg/dL Hemoglobin A1c (4.2-6.1) % Plasma Lactic Acid Diego (0.7-2.0) mmol/L Calcium (8.4-10.2) mg/dL Phosphorus (2.5-4.5) mg/dL Magnesium (1.6-2.3) mg/dL Total Bilirubin (0.2-1.3) mg/dL AST (17-59) U/L ALT (21-72) U/L Alkaline Phosphatase (38-126) U/L Total Protein (6.3-8.2) g/dL Albumin (3.5-5.0) g/dL A.fumigatus Allerg IgE kU/L Urine Color Urine Appearance (Clear) Urine pH (5.0-8.0) Ur Specific [place] (1.001-1.035) Urine Protein (Negative) Urine Glucose (UA) (Negative) Urine Ketones (Negative) Urine Blood (Negative) Urine Nitrate (Negative) Urine Bilirubin (Negative) Urine Urobilinogen (<2.0) mg/dL Ur Leukocyte Esterase (Negative) Aspergillus Ab (CompFix) (<1:8) 11/30/16 11/30/16 11/30/16 Range/Units 14:38 17:20 18:28 WBC (3.8-10.6) k/uL RBC (4.30-5.90) m/uL Hgb (13.0-17.5) gm/dL Hct (39.0-53.0) % MCV (80.0-100.0) fL MCH (25.0-35.0) pg MCHC (31.0-37.0) g/dL RDW (11.5-15.5) % Plt Count (150-450) k/uL Neutrophils % % Lymphocytes % % Monocytes % % Eosinophils % % Basophils % % Neutrophils # (1.3-7.7) k/uL Lymphocytes # (1.0-4.8) k/uL Monocytes # (0-1.0) k/uL Eosinophils # (0-0.7) k/uL Basophils # (0-0.2) k/uL Hypochromasia Sodium (137-145) mmol/L Potassium (3.5-5.1) mmol/L Chloride (98-107) mmol/L Carbon Dioxide (22-30) mmol/L Anion Gap mmol/L BUN (9-20) mg/dL Creatinine (0.66-1.25) mg/dL Est GFR (MDRD) Af Amer (>60 ml/min/1.73 sqM) Est GFR (MDRD) Non-Af (>60 ml/min/1.73 sqM) Glucose (74-99) mg/dL POC Glucose (mg/dL) 238 H 78 158 H (75-99) mg/dL POC Glu Patient Account Representative ZACHARY Dan, Maryjane Dan, Maryjane Oliverbraith, Bebe [address] Glu mg/dL mg/dL Hemoglobin A1c (4.2-6.1) % Plasma Lactic Acid Diego (0.7-2.0) mmol/L Calcium (8.4-10.2) mg/dL Phosphorus (2.5-4.5) mg/dL Magnesium (1.6-2.3) mg/dL Total Bilirubin (0.2-1.3) mg/dL AST (17-59) U/L ALT (21-72) U/L Alkaline Phosphatase (38-126) U/L Total Protein (6.3-8.2) g/dL Albumin (3.5-5.0) g/dL A.fumigatus Allerg IgE kU/L Urine Color Urine Appearance (Clear) Urine pH (5.0-8.0) Ur Specific [place] (1.001-1.035) Urine Protein (Negative) Urine Glucose (UA) (Negative) Urine Ketones (Negative) Urine Blood (Negative) Urine Nitrate (Negative) Urine Bilirubin (Negative) Urine Urobilinogen (<2.0) mg/dL Ur Leukocyte Esterase (Negative) Aspergillus Ab (CompFix) (<1:8) 11/30/16 11/30/16 11/30/16 Range/Units 19:51 22:06 22:58 WBC (3.8-10.6) k/uL RBC (4.30-5.90) m/uL Hgb (13.0-17.5) gm/dL Hct (39.0-53.0) % MCV (80.0-100.0) fL MCH (25.0-35.0) pg MCHC (31.0-37.0) g/dL RDW (11.5-15.5) % Plt Count (150-450) k/uL Neutrophils % % Lymphocytes % % Monocytes % % Eosinophils % % Basophils % % Neutrophils # (1.3-7.7) k/uL Lymphocytes # (1.0-4.8) k/uL Monocytes # (0-1.0) k/uL Eosinophils # (0-0.7) k/uL Basophils # (0-0.2) k/uL Hypochromasia Sodium (137-145) mmol/L Potassium (3.5-5.1) mmol/L Chloride (98-107) mmol/L Carbon Dioxide (22-30) mmol/L Anion Gap mmol/L BUN (9-20) mg/dL Creatinine (0.66-1.25) mg/dL Est GFR (MDRD) Af Amer (>60 ml/min/1.73 sqM) Est GFR (MDRD) Non-Af (>60 ml/min/1.73 sqM) Glucose (74-99) mg/dL POC Glucose (mg/dL) 189 H 125 H 136 H (75-99) mg/dL POC Glu Patient Account Representative ID Grabiel, Celestina Grabiel, Celestina Grabiel, Celestina [address] Glu mg/dL mg/dL Hemoglobin A1c (4.2-6.1) % Plasma Lactic Acid Diego (0.7-2.0) mmol/L Calcium (8.4-10.2) mg/dL Phosphorus (2.5-4.5) mg/dL Magnesium (1.6-2.3) mg/dL Total Bilirubin (0.2-1.3) mg/dL AST (17-59) U/L ALT (21-72) U/L Alkaline Phosphatase (38-126) U/L Total Protein (6.3-8.2) g/dL Albumin (3.5-5.0) g/dL A.fumigatus Allerg IgE kU/L Urine Color Urine Appearance (Clear) Urine pH (5.0-8.0) Ur Specific [place] (1.001-1.035) Urine Protein (Negative) Urine Glucose (UA) (Negative) Urine Ketones (Negative) Urine Blood (Negative) Urine Nitrate (Negative) Urine Bilirubin (Negative) Urine Urobilinogen (<2.0) mg/dL Ur Leukocyte Esterase (Negative) Aspergillus Ab (CompFix) (<1:8) 12/01/16 12/01/16 12/01/16 Range/Units 00:56 03:02 03:58 WBC (3.8-10.6) k/uL RBC (4.30-5.90) m/uL Hgb (13.0-17.5) gm/dL Hct (39.0-53.0) % MCV (80.0-100.0) fL MCH (25.0-35.0) pg MCHC (31.0-37.0) g/dL RDW (11.5-15.5) % Plt Count (150-450) k/uL Neutrophils % % Lymphocytes % % Monocytes % % Eosinophils % % Basophils % % Neutrophils # (1.3-7.7) k/uL Lymphocytes # (1.0-4.8) k/uL Monocytes # (0-1.0) k/uL Eosinophils # (0-0.7) k/uL Basophils # (0-0.2) k/uL Hypochromasia Sodium (137-145) mmol/L Potassium (3.5-5.1) mmol/L Chloride (98-107) mmol/L Carbon Dioxide (22-30) mmol/L Anion Gap mmol/L BUN (9-20) mg/dL Creatinine (0.66-1.25) mg/dL Est GFR (MDRD) Af Amer (>60 ml/min/1.73 sqM) Est GFR (MDRD) Non-Af (>60 ml/min/1.73 sqM) Glucose (74-99) mg/dL POC Glucose (mg/dL) 142 H 117 H 132 H (75-99) mg/dL POC Glu Patient Account Representative ID Grabiel, Celestina Grabiel, Celestina Grabiel, Celestina [address] Glu mg/dL mg/dL Hemoglobin A1c (4.2-6.1) % Plasma Lactic Acid Diego (0.7-2.0) mmol/L Calcium (8.4-10.2) mg/dL Phosphorus (2.5-4.5) mg/dL Magnesium (1.6-2.3) mg/dL Total Bilirubin (0.2-1.3) mg/dL AST (17-59) U/L ALT (21-72) U/L Alkaline Phosphatase (38-126) U/L Total Protein (6.3-8.2) g/dL Albumin (3.5-5.0) g/dL A.fumigatus Allerg IgE kU/L Urine Color Urine Appearance (Clear) Urine pH (5.0-8.0) Ur Specific [place] (1.001-1.035) Urine Protein (Negative) Urine Glucose (UA) (Negative) Urine Ketones (Negative) Urine Blood (Negative) Urine Nitrate (Negative) Urine Bilirubin (Negative) Urine Urobilinogen (<2.0) mg/dL Ur Leukocyte Esterase (Negative) Aspergillus Ab (CompFix) (<1:8) 12/01/16 12/01/16 12/01/16 Range/Units 06:03 06:56 09:03 WBC (3.8-10.6) k/uL RBC (4.30-5.90) m/uL Hgb (13.0-17.5) gm/dL Hct (39.0-53.0) % MCV (80.0-100.0) fL MCH (25.0-35.0) pg MCHC (31.0-37.0) g/dL RDW (11.5-15.5) % Plt Count (150-450) k/uL Neutrophils % % Lymphocytes % % Monocytes % % Eosinophils % % Basophils % % Neutrophils # (1.3-7.7) k/uL Lymphocytes # (1.0-4.8) k/uL Monocytes # (0-1.0) k/uL Eosinophils # (0-0.7) k/uL Basophils # (0-0.2) k/uL Hypochromasia Sodium (137-145) mmol/L Potassium (3.5-5.1) mmol/L Chloride (98-107) mmol/L Carbon Dioxide (22-30) mmol/L Anion Gap mmol/L BUN (9-20) mg/dL Creatinine (0.66-1.25) mg/dL Est GFR (MDRD) Af Amer (>60 ml/min/1.73 sqM) Est GFR (MDRD) Non-Af (>60 ml/min/1.73 sqM) Glucose (74-99) mg/dL POC Glucose (mg/dL) 120 H 128 H 287 H (75-99) mg/dL POC Glu Patient Account Representative ID Celestina Spain Jennifer Patterson, Jennifer [address] Glu mg/dL mg/dL Hemoglobin A1c (4.2-6.1) % Plasma Lactic Acid Diego (0.7-2.0) mmol/L Calcium (8.4-10.2) mg/dL Phosphorus (2.5-4.5) mg/dL Magnesium (1.6-2.3) mg/dL Total Bilirubin (0.2-1.3) mg/dL AST (17-59) U/L ALT (21-72) U/L Alkaline Phosphatase (38-126) U/L Total Protein (6.3-8.2) g/dL Albumin (3.5-5.0) g/dL A.fumigatus Allerg IgE kU/L Urine Color Urine Appearance (Clear) Urine pH (5.0-8.0) Ur Specific [place] (1.001-1.035) Urine Protein (Negative) Urine Glucose (UA) (Negative) Urine Ketones (Negative) Urine Blood (Negative) Urine Nitrate (Negative) Urine Bilirubin (Negative) Urine Urobilinogen (<2.0) mg/dL Ur Leukocyte Esterase (Negative) Aspergillus Ab (CompFix) (<1:8) 12/01/16 12/01/16 12/01/16 Range/Units 11:06 12:03 13:21 WBC (3.8-10.6) k/uL RBC (4.30-5.90) m/uL Hgb (13.0-17.5) gm/dL Hct (39.0-53.0) % MCV (80.0-100.0) fL MCH (25.0-35.0) pg MCHC (31.0-37.0) g/dL RDW (11.5-15.5) % Plt Count (150-450) k/uL Neutrophils % % Lymphocytes % % Monocytes % % Eosinophils % % Basophils % % Neutrophils # (1.3-7.7) k/uL Lymphocytes # (1.0-4.8) k/uL Monocytes # (0-1.0) k/uL Eosinophils # (0-0.7) k/uL Basophils # (0-0.2) k/uL Hypochromasia Sodium (137-145) mmol/L Potassium (3.5-5.1) mmol/L Chloride (98-107) mmol/L Carbon Dioxide (22-30) mmol/L Anion Gap mmol/L BUN (9-20) mg/dL Creatinine (0.66-1.25) mg/dL Est GFR (MDRD) Af Amer (>60 ml/min/1.73 sqM) Est GFR (MDRD) Non-Af (>60 ml/min/1.73 sqM) Glucose (74-99) mg/dL POC Glucose (mg/dL) 308 H 260 H 178 H (75-99) mg/dL POC Glu Patient Account Representative ZACHARY Alves, Aric Gilda, Samanta Gilda, Samanta [address] Glu mg/dL mg/dL Hemoglobin A1c (4.2-6.1) % Plasma Lactic Acid Diego (0.7-2.0) mmol/L Calcium (8.4-10.2) mg/dL Phosphorus (2.5-4.5) mg/dL Magnesium (1.6-2.3) mg/dL Total Bilirubin (0.2-1.3) mg/dL AST (17-59) U/L ALT (21-72) U/L Alkaline Phosphatase (38-126) U/L Total Protein (6.3-8.2) g/dL Albumin (3.5-5.0) g/dL A.fumigatus Allerg IgE kU/L Urine Color Urine Appearance (Clear) Urine pH (5.0-8.0) Ur Specific [place] (1.001-1.035) Urine Protein (Negative) Urine Glucose (UA) (Negative) Urine Ketones (Negative) Urine Blood (Negative) Urine Nitrate (Negative) Urine Bilirubin (Negative) Urine Urobilinogen (<2.0) mg/dL Ur Leukocyte Esterase (Negative) Aspergillus Ab (CompFix) (<1:8) 12/01/16 12/01/16 12/01/16 Range/Units 14:18 15:39 16:46 WBC (3.8-10.6) k/uL RBC (4.30-5.90) m/uL Hgb (13.0-17.5) gm/dL Hct (39.0-53.0) % MCV (80.0-100.0) fL MCH (25.0-35.0) pg MCHC (31.0-37.0) g/dL RDW (11.5-15.5) % Plt Count (150-450) k/uL Neutrophils % % Lymphocytes % % Monocytes % % Eosinophils % % Basophils % % Neutrophils # (1.3-7.7) k/uL Lymphocytes # (1.0-4.8) k/uL Monocytes # (0-1.0) k/uL Eosinophils # (0-0.7) k/uL Basophils # (0-0.2) k/uL Hypochromasia Sodium (137-145) mmol/L Potassium (3.5-5.1) mmol/L Chloride (98-107) mmol/L Carbon Dioxide (22-30) mmol/L Anion Gap mmol/L BUN (9-20) mg/dL Creatinine (0.66-1.25) mg/dL Est GFR (MDRD) Af Amer (>60 ml/min/1.73 sqM) Est GFR (MDRD) Non-Af (>60 ml/min/1.73 sqM) Glucose (74-99) mg/dL POC Glucose (mg/dL) 148 H 121 H 118 H (75-99) mg/dL POC Glu Patient Account Representative Samanta Mahmood, Samanta Gipson [address] Glu mg/dL mg/dL Hemoglobin A1c (4.2-6.1) % Plasma Lactic Acid Diego (0.7-2.0) mmol/L Calcium (8.4-10.2) mg/dL Phosphorus (2.5-4.5) mg/dL Magnesium (1.6-2.3) mg/dL Total Bilirubin (0.2-1.3) mg/dL AST (17-59) U/L ALT (21-72) U/L Alkaline Phosphatase (38-126) U/L Total Protein (6.3-8.2) g/dL Albumin (3.5-5.0) g/dL A.fumigatus Allerg IgE kU/L Urine Color Urine Appearance (Clear) Urine pH (5.0-8.0) Ur Specific [place] (1.001-1.035) Urine Protein (Negative) Urine Glucose (UA) (Negative) Urine Ketones (Negative) Urine Blood (Negative) Urine Nitrate (Negative) Urine Bilirubin (Negative) Urine Urobilinogen (<2.0) mg/dL Ur Leukocyte Esterase (Negative) Aspergillus Ab (CompFix) (<1:8) 12/01/16 12/01/16 12/01/16 Range/Units 17:40 19:18 21:22 WBC (3.8-10.6) k/uL RBC (4.30-5.90) m/uL Hgb (13.0-17.5) gm/dL Hct (39.0-53.0) % MCV (80.0-100.0) fL MCH (25.0-35.0) pg MCHC (31.0-37.0) g/dL RDW (11.5-15.5) % Plt Count (150-450) k/uL Neutrophils % % Lymphocytes % % Monocytes % % Eosinophils % % Basophils % % Neutrophils # (1.3-7.7) k/uL Lymphocytes # (1.0-4.8) k/uL Monocytes # (0-1.0) k/uL Eosinophils # (0-0.7) k/uL Basophils # (0-0.2) k/uL Hypochromasia Sodium (137-145) mmol/L Potassium (3.5-5.1) mmol/L Chloride (98-107) mmol/L Carbon Dioxide (22-30) mmol/L Anion Gap mmol/L BUN (9-20) mg/dL Creatinine (0.66-1.25) mg/dL Est GFR (MDRD) Af Amer (>60 ml/min/1.73 sqM) Est GFR (MDRD) Non-Af (>60 ml/min/1.73 sqM) Glucose (74-99) mg/dL POC Glucose (mg/dL) 145 H 177 H 155 H (75-99) mg/dL POC Glu Patient Account Representative Samanta Mahmood Bonnie Scheeres, Bonnie [address] Glu mg/dL mg/dL Hemoglobin A1c (4.2-6.1) % Plasma Lactic Acid Diego (0.7-2.0) mmol/L Calcium (8.4-10.2) mg/dL Phosphorus (2.5-4.5) mg/dL Magnesium (1.6-2.3) mg/dL Total Bilirubin (0.2-1.3) mg/dL AST (17-59) U/L ALT (21-72) U/L Alkaline Phosphatase (38-126) U/L Total Protein (6.3-8.2) g/dL Albumin (3.5-5.0) g/dL A.fumigatus Allerg IgE kU/L Urine Color Urine Appearance (Clear) Urine pH (5.0-8.0) Ur Specific [place] (1.001-1.035) Urine Protein (Negative) Urine Glucose (UA) (Negative) Urine Ketones (Negative) Urine Blood (Negative) Urine Nitrate (Negative) Urine Bilirubin (Negative) Urine Urobilinogen (<2.0) mg/dL Ur Leukocyte Esterase (Negative) Aspergillus Ab (CompFix) (<1:8) 12/01/16 12/02/16 12/02/16 Range/Units 23:44 00:57 02:03 WBC (3.8-10.6) k/uL RBC (4.30-5.90) m/uL Hgb (13.0-17.5) gm/dL Hct (39.0-53.0) % MCV (80.0-100.0) fL MCH (25.0-35.0) pg MCHC (31.0-37.0) g/dL RDW (11.5-15.5) % Plt Count (150-450) k/uL Neutrophils % % Lymphocytes % % Monocytes % % Eosinophils % % Basophils % % Neutrophils # (1.3-7.7) k/uL Lymphocytes # (1.0-4.8) k/uL Monocytes # (0-1.0) k/uL Eosinophils # (0-0.7) k/uL Basophils # (0-0.2) k/uL Hypochromasia Sodium (137-145) mmol/L Potassium (3.5-5.1) mmol/L Chloride (98-107) mmol/L Carbon Dioxide (22-30) mmol/L Anion Gap mmol/L BUN (9-20) mg/dL Creatinine (0.66-1.25) mg/dL Est GFR (MDRD) Af Amer (>60 ml/min/1.73 sqM) Est GFR (MDRD) Non-Af (>60 ml/min/1.73 sqM) Glucose (74-99) mg/dL POC Glucose (mg/dL) 115 H 122 H 122 H (75-99) mg/dL POC Glu Patient Account Representative Rosemary Ortiz, Rosemary Scheeres, Rosemary [address] Glu mg/dL mg/dL Hemoglobin A1c (4.2-6.1) % Plasma Lactic Acid [place] (0.7-2.0) mmol/L Calcium (8.4-10.2) mg/dL Phosphorus (2.5-4.5) mg/dL Magnesium (1.6-2.3) mg/dL Total Bilirubin (0.2-1.3) mg/dL AST (17-59) U/L ALT (21-72) U/L Alkaline Phosphatase (38-126) U/L Total Protein (6.3-8.2) g/dL Albumin (3.5-5.0) g/dL A.fumigatus Allerg IgE kU/L Urine Color Urine Appearance (Clear) Urine pH (5.0-8.0) Ur Specific [place] (1.001-1.035) Urine Protein (Negative) Urine Glucose (UA) (Negative) Urine Ketones (Negative) Urine Blood (Negative) Urine Nitrate (Negative) Urine Bilirubin (Negative) Urine Urobilinogen (<2.0) mg/dL Ur Leukocyte Esterase (Negative) Aspergillus Ab (CompFix) (<1:8) 12/02/16 12/02/16 12/02/16 Range/Units 03:06 04:14 05:53 WBC (3.8-10.6) k/uL RBC (4.30-5.90) m/uL Hgb (13.0-17.5) gm/dL Hct (39.0-53.0) % MCV (80.0-100.0) fL MCH (25.0-35.0) pg MCHC (31.0-37.0) g/dL RDW (11.5-15.5) % Plt Count (150-450) k/uL Neutrophils % % Lymphocytes % % Monocytes % % Eosinophils % % Basophils % % Neutrophils # (1.3-7.7) k/uL Lymphocytes # (1.0-4.8) k/uL Monocytes # (0-1.0) k/uL Eosinophils # (0-0.7) k/uL Basophils # (0-0.2) k/uL Hypochromasia Sodium (137-145) mmol/L Potassium (3.5-5.1) mmol/L Chloride (98-107) mmol/L Carbon Dioxide (22-30) mmol/L Anion Gap mmol/L BUN (9-20) mg/dL Creatinine (0.66-1.25) mg/dL Est GFR (MDRD) Af Amer (>60 ml/min/1.73 sqM) Est GFR (MDRD) Non-Af (>60 ml/min/1.73 sqM) Glucose (74-99) mg/dL POC Glucose (mg/dL) 151 H 161 H 150 H (75-99) mg/dL POC Glu Patient Account Representative ID Scheeres, Rosemary Scheeres, Rosemary Scheeres, Rosemary [address] Glu mg/dL mg/dL Hemoglobin A1c (4.2-6.1) % Plasma Lactic Acid Diego (0.7-2.0) mmol/L Calcium (8.4-10.2) mg/dL Phosphorus (2.5-4.5) mg/dL Magnesium (1.6-2.3) mg/dL Total Bilirubin (0.2-1.3) mg/dL AST (17-59) U/L ALT (21-72) U/L Alkaline Phosphatase (38-126) U/L Total Protein (6.3-8.2) g/dL Albumin (3.5-5.0) g/dL A.fumigatus Allerg IgE kU/L Urine Color Urine Appearance (Clear) Urine pH (5.0-8.0) Ur Specific [place] (1.001-1.035) Urine Protein (Negative) Urine Glucose (UA) (Negative) Urine Ketones (Negative) Urine Blood (Negative) Urine Nitrate (Negative) Urine Bilirubin (Negative) Urine Urobilinogen (<2.0) mg/dL Ur Leukocyte Esterase (Negative) Aspergillus Ab (CompFix) (<1:8) 12/02/16 12/02/16 12/02/16 Range/Units 07:05 07:46 09:53 WBC (3.8-10.6) k/uL RBC (4.30-5.90) m/uL Hgb (13.0-17.5) gm/dL Hct (39.0-53.0) % MCV (80.0-100.0) fL MCH (25.0-35.0) pg MCHC (31.0-37.0) g/dL RDW (11.5-15.5) % Plt Count (150-450) k/uL Neutrophils % % Lymphocytes % % Monocytes % % Eosinophils % % Basophils % % Neutrophils # (1.3-7.7) k/uL Lymphocytes # (1.0-4.8) k/uL Monocytes # (0-1.0) k/uL Eosinophils # (0-0.7) k/uL Basophils # (0-0.2) k/uL Hypochromasia Sodium (137-145) mmol/L Potassium (3.5-5.1) mmol/L Chloride (98-107) mmol/L Carbon Dioxide (22-30) mmol/L Anion Gap mmol/L BUN (9-20) mg/dL Creatinine (0.66-1.25) mg/dL Est GFR (MDRD) Af Amer (>60 ml/min/1.73 sqM) Est GFR (MDRD) Non-Af (>60 ml/min/1.73 sqM) Glucose (74-99) mg/dL POC Glucose (mg/dL) 129 H 139 H 279 H (75-99) mg/dL POC Glu Patient Account Representative Samanta Mahmood, Samanta Gipson [address] Glu mg/dL mg/dL Hemoglobin A1c (4.2-6.1) % Plasma Lactic Acid [place] (0.7-2.0) mmol/L Calcium (8.4-10.2) mg/dL Phosphorus (2.5-4.5) mg/dL Magnesium (1.6-2.3) mg/dL Total Bilirubin (0.2-1.3) mg/dL AST (17-59) U/L ALT (21-72) U/L Alkaline Phosphatase (38-126) U/L Total Protein (6.3-8.2) g/dL Albumin (3.5-5.0) g/dL A.fumigatus Allerg IgE kU/L Urine Color Urine Appearance (Clear) Urine pH (5.0-8.0) Ur Specific [place] (1.001-1.035) Urine Protein (Negative) Urine Glucose (UA) (Negative) Urine Ketones (Negative) Urine Blood (Negative) Urine Nitrate (Negative) Urine Bilirubin (Negative) Urine Urobilinogen (<2.0) mg/dL Ur Leukocyte Esterase (Negative) Aspergillus Ab (CompFix) (<1:8) 12/02/16 12/02/16 12/02/16 Range/Units 11:57 14:45 17:19 WBC (3.8-10.6) k/uL RBC (4.30-5.90) m/uL Hgb (13.0-17.5) gm/dL Hct (39.0-53.0) % MCV (80.0-100.0) fL MCH (25.0-35.0) pg MCHC (31.0-37.0) g/dL RDW (11.5-15.5) % Plt Count (150-450) k/uL Neutrophils % % Lymphocytes % % Monocytes % % Eosinophils % % Basophils % % Neutrophils # (1.3-7.7) k/uL Lymphocytes # (1.0-4.8) k/uL Monocytes # (0-1.0) k/uL Eosinophils # (0-0.7) k/uL Basophils # (0-0.2) k/uL Hypochromasia Sodium (137-145) mmol/L Potassium (3.5-5.1) mmol/L Chloride (98-107) mmol/L Carbon Dioxide (22-30) mmol/L Anion Gap mmol/L BUN (9-20) mg/dL Creatinine (0.66-1.25) mg/dL Est GFR (MDRD) Af Amer (>60 ml/min/1.73 sqM) Est GFR (MDRD) Non-Af (>60 ml/min/1.73 sqM) Glucose (74-99) mg/dL POC Glucose (mg/dL) 233 H 251 H 254 H (75-99) mg/dL POC Glu Patient Account Representative Samanta Mahmood Jennifer Patterson, Jennifer [address] Glu mg/dL mg/dL Hemoglobin A1c (4.2-6.1) % Plasma Lactic Acid [place] (0.7-2.0) mmol/L Calcium (8.4-10.2) mg/dL Phosphorus (2.5-4.5) mg/dL Magnesium (1.6-2.3) mg/dL Total Bilirubin (0.2-1.3) mg/dL AST (17-59) U/L ALT (21-72) U/L Alkaline Phosphatase (38-126) U/L Total Protein (6.3-8.2) g/dL Albumin (3.5-5.0) g/dL A.fumigatus Allerg IgE kU/L Urine Color Urine Appearance (Clear) Urine pH (5.0-8.0) Ur Specific [place] (1.001-1.035) Urine Protein (Negative) Urine Glucose (UA) (Negative) Urine Ketones (Negative) Urine Blood (Negative) Urine Nitrate (Negative) Urine Bilirubin (Negative) Urine Urobilinogen (<2.0) mg/dL Ur Leukocyte Esterase (Negative) Aspergillus Ab (CompFix) (<1:8) 12/02/16 12/02/16 12/02/16 Range/Units 19:07 21:05 23:06 WBC (3.8-10.6) k/uL RBC (4.30-5.90) m/uL Hgb (13.0-17.5) gm/dL Hct (39.0-53.0) % MCV (80.0-100.0) fL MCH (25.0-35.0) pg MCHC (31.0-37.0) g/dL RDW (11.5-15.5) % Plt Count (150-450) k/uL Neutrophils % % Lymphocytes % % Monocytes % % Eosinophils % % Basophils % % Neutrophils # (1.3-7.7) k/uL Lymphocytes # (1.0-4.8) k/uL Monocytes # (0-1.0) k/uL Eosinophils # (0-0.7) k/uL Basophils # (0-0.2) k/uL Hypochromasia Sodium (137-145) mmol/L Potassium (3.5-5.1) mmol/L Chloride (98-107) mmol/L Carbon Dioxide (22-30) mmol/L Anion Gap mmol/L BUN (9-20) mg/dL Creatinine (0.66-1.25) mg/dL Est GFR (MDRD) Af Amer (>60 ml/min/1.73 sqM) Est GFR (MDRD) Non-Af (>60 ml/min/1.73 sqM) Glucose (74-99) mg/dL POC Glucose (mg/dL) 236 H 183 H 208 H (75-99) mg/dL POC Glu Patient Account Representative Samanta Soares, Samanta Collado, Samanta [address] Glu mg/dL mg/dL Hemoglobin A1c (4.2-6.1) % Plasma Lactic Acid [place] (0.7-2.0) mmol/L Calcium (8.4-10.2) mg/dL Phosphorus (2.5-4.5) mg/dL Magnesium (1.6-2.3) mg/dL Total Bilirubin (0.2-1.3) mg/dL AST (17-59) U/L ALT (21-72) U/L Alkaline Phosphatase (38-126) U/L Total Protein (6.3-8.2) g/dL Albumin (3.5-5.0) g/dL A.fumigatus Allerg IgE kU/L Urine Color Urine Appearance (Clear) Urine pH (5.0-8.0) Ur Specific [place] (1.001-1.035) Urine Protein (Negative) Urine Glucose (UA) (Negative) Urine Ketones (Negative) Urine Blood (Negative) Urine Nitrate (Negative) Urine Bilirubin (Negative) Urine Urobilinogen (<2.0) mg/dL Ur Leukocyte Esterase (Negative) Aspergillus Ab (CompFix) (<1:8) 12/03/16 12/03/16 12/03/16 Range/Units 01:02 02:58 04:05 WBC (3.8-10.6) k/uL RBC (4.30-5.90) m/uL Hgb (13.0-17.5) gm/dL Hct (39.0-53.0) % MCV (80.0-100.0) fL MCH (25.0-35.0) pg MCHC (31.0-37.0) g/dL RDW (11.5-15.5) % Plt Count (150-450) k/uL Neutrophils % % Lymphocytes % % Monocytes % % Eosinophils % % Basophils % % Neutrophils # (1.3-7.7) k/uL Lymphocytes # (1.0-4.8) k/uL Monocytes # (0-1.0) k/uL Eosinophils # (0-0.7) k/uL Basophils # (0-0.2) k/uL Hypochromasia Sodium (137-145) mmol/L Potassium (3.5-5.1) mmol/L Chloride (98-107) mmol/L Carbon Dioxide (22-30) mmol/L Anion Gap mmol/L BUN (9-20) mg/dL Creatinine (0.66-1.25) mg/dL Est GFR (MDRD) Af Amer (>60 ml/min/1.73 sqM) Est GFR (MDRD) Non-Af (>60 ml/min/1.73 sqM) Glucose (74-99) mg/dL POC Glucose (mg/dL) 144 H 117 H 130 H (75-99) mg/dL POC Glu Patient Account Representative ZACHARY Collado, Samanta Collado, Samanta [address] Glu mg/dL mg/dL Hemoglobin A1c (4.2-6.1) % Plasma Lactic Acid [place] (0.7-2.0) mmol/L Calcium (8.4-10.2) mg/dL Phosphorus (2.5-4.5) mg/dL Magnesium (1.6-2.3) mg/dL Total Bilirubin (0.2-1.3) mg/dL AST (17-59) U/L ALT (21-72) U/L Alkaline Phosphatase (38-126) U/L Total Protein (6.3-8.2) g/dL Albumin (3.5-5.0) g/dL A.fumigatus Allerg IgE kU/L Urine Color Urine Appearance (Clear) Urine pH (5.0-8.0) Ur Specific [place] (1.001-1.035) Urine Protein (Negative) Urine Glucose (UA) (Negative) Urine Ketones (Negative) Urine Blood (Negative) Urine Nitrate (Negative) Urine Bilirubin (Negative) Urine Urobilinogen (<2.0) mg/dL Ur Leukocyte Esterase (Negative) Aspergillus Ab (CompFix) (<1:8) 12/03/16 12/03/16 12/03/16 Range/Units 05:02 05:59 07:34 WBC (3.8-10.6) k/uL RBC (4.30-5.90) m/uL Hgb (13.0-17.5) gm/dL Hct (39.0-53.0) % MCV (80.0-100.0) fL MCH (25.0-35.0) pg MCHC (31.0-37.0) g/dL RDW (11.5-15.5) % Plt Count (150-450) k/uL Neutrophils % % Lymphocytes % % Monocytes % % Eosinophils % % Basophils % % Neutrophils # (1.3-7.7) k/uL Lymphocytes # (1.0-4.8) k/uL Monocytes # (0-1.0) k/uL Eosinophils # (0-0.7) k/uL Basophils # (0-0.2) k/uL Hypochromasia Sodium (137-145) mmol/L Potassium (3.5-5.1) mmol/L Chloride (98-107) mmol/L Carbon Dioxide (22-30) mmol/L Anion Gap mmol/L BUN (9-20) mg/dL Creatinine (0.66-1.25) mg/dL Est GFR (MDRD) Af Amer (>60 ml/min/1.73 sqM) Est GFR (MDRD) Non-Af (>60 ml/min/1.73 sqM) Glucose (74-99) mg/dL POC Glucose (mg/dL) 128 H 132 H 141 H (75-99) mg/dL POC Glu Patient Account Representative Samanta Soares Jennifer Patterson, Jennifer [address] Glu mg/dL mg/dL Hemoglobin A1c (4.2-6.1) % Plasma Lactic Acid [place] (0.7-2.0) mmol/L Calcium (8.4-10.2) mg/dL Phosphorus (2.5-4.5) mg/dL Magnesium (1.6-2.3) mg/dL Total Bilirubin (0.2-1.3) mg/dL AST (17-59) U/L ALT (21-72) U/L Alkaline Phosphatase (38-126) U/L Total Protein (6.3-8.2) g/dL Albumin (3.5-5.0) g/dL A.fumigatus Allerg IgE kU/L Urine Color Urine Appearance (Clear) Urine pH (5.0-8.0) Ur Specific [place] (1.001-1.035) Urine Protein (Negative) Urine Glucose (UA) (Negative) Urine Ketones (Negative) Urine Blood (Negative) Urine Nitrate (Negative) Urine Bilirubin (Negative) Urine Urobilinogen (<2.0) mg/dL Ur Leukocyte Esterase (Negative) Aspergillus Ab (CompFix) (<1:8) 12/03/16 12/03/16 12/03/16 Range/Units 07:45 07:45 11:15 WBC 10.5 (3.8-10.6) k/uL RBC 3.05 L (4.30-5.90) m/uL Hgb 9.2 L D (13.0-17.5) gm/dL Hct 28.7 L (39.0-53.0) % MCV 94.0 (80.0-100.0) fL MCH 30.2 (25.0-35.0) pg MCHC 32.1 (31.0-37.0) g/dL RDW 14.8 (11.5-15.5) % Plt Count 112 L (150-450) k/uL Neutrophils % 93 % Lymphocytes % 3 % Monocytes % 3 % Eosinophils % 0 % Basophils % 0 % Neutrophils # 9.8 H (1.3-7.7) k/uL Lymphocytes # 0.3 L (1.0-4.8) k/uL Monocytes # 0.4 (0-1.0) k/uL Eosinophils # 0.0 (0-0.7) k/uL Basophils # 0.0 (0-0.2) k/uL Hypochromasia Sodium 147 H (137-145) mmol/L Potassium 4.1 (3.5-5.1) mmol/L Chloride 109 H (98-107) mmol/L Carbon Dioxide 30 (22-30) mmol/L Anion Gap 8 mmol/L BUN 34 H (9-20) mg/dL Creatinine 1.04 (0.66-1.25) mg/dL Est GFR (MDRD) Af Amer >60 (>60 ml/min/1.73 sqM) Est GFR (MDRD) Non-Af >60 (>60 ml/min/1.73 sqM) Glucose 135 H (74-99) mg/dL POC Glucose (mg/dL) 278 H (75-99) mg/dL POC Glu Patient Account Representative ID Samanta Vo Estimated Ave Glu mg/dL mg/dL Hemoglobin A1c (4.2-6.1) % Plasma Lactic Acid Diego (0.7-2.0) mmol/L Calcium 8.2 L (8.4-10.2) mg/dL Phosphorus (2.5-4.5) mg/dL Magnesium (1.6-2.3) mg/dL Total Bilirubin (0.2-1.3) mg/dL AST (17-59) U/L ALT (21-72) U/L Alkaline Phosphatase (38-126) U/L Total Protein (6.3-8.2) g/dL Albumin (3.5-5.0) g/dL A.fumigatus Allerg IgE kU/L Urine Color Urine Appearance (Clear) Urine pH (5.0-8.0) Ur Specific [place] (1.001-1.035) Urine Protein (Negative) Urine Glucose (UA) (Negative) Urine Ketones (Negative) Urine Blood (Negative) Urine Nitrate (Negative) Urine Bilirubin (Negative) Urine Urobilinogen (<2.0) mg/dL Ur Leukocyte Esterase (Negative) Aspergillus Ab (CompFix) (<1:8) 12/03/16 12/03/16 Range/Units 17:20 19:58 WBC (3.8-10.6) k/uL RBC (4.30-5.90) m/uL Hgb (13.0-17.5) gm/dL Hct (39.0-53.0) % MCV (80.0-100.0) fL MCH (25.0-35.0) pg MCHC (31.0-37.0) g/dL RDW (11.5-15.5) % Plt Count (150-450) k/uL Neutrophils % % Lymphocytes % % Monocytes % % Eosinophils % % Basophils % % Neutrophils # (1.3-7.7) k/uL Lymphocytes # (1.0-4.8) k/uL Monocytes # (0-1.0) k/uL Eosinophils # (0-0.7) k/uL Basophils # (0-0.2) k/uL Hypochromasia Sodium (137-145) mmol/L Potassium (3.5-5.1) mmol/L Chloride (98-107) mmol/L Carbon Dioxide (22-30) mmol/L Anion Gap mmol/L BUN (9-20) mg/dL Creatinine (0.66-1.25) mg/dL Est GFR (MDRD) Af Amer (>60 ml/min/1.73 sqM) Est GFR (MDRD) Non-Af (>60 ml/min/1.73 sqM) Glucose (74-99) mg/dL POC Glucose (mg/dL) 279 H 316 H (75-99) mg/dL POC Glu Patient Account Representative ID Jolene Vasquez M [place], Kim [address]imated [address] Glu mg/dL mg/dL Hemoglobin A1c (4.2-6.1) % Plasma Lactic Acid [place] (0.7-2.0) mmol/L Calcium (8.4-10.2) mg/dL Phosphorus (2.5-4.5) mg/dL Magnesium (1.6-2.3) mg/dL Total Bilirubin (0.2-1.3) mg/dL AST (17-59) U/L ALT (21-72) U/L Alkaline Phosphatase (38-126) U/L Total Protein (6.3-8.2) g/dL Albumin (3.5-5.0) g/dL A.fumigatus Allerg IgE kU/L Urine Color Urine Appearance (Clear) Urine pH (5.0-8.0) Ur Specific [place] (1.001-1.035) Urine Protein (Negative) Urine Glucose (UA) (Negative) Urine Ketones (Negative) Urine Blood (Negative) Urine Nitrate (Negative) Urine Bilirubin (Negative) Urine Urobilinogen (<2.0) mg/dL Ur Leukocyte Esterase (Negative) Aspergillus Ab (CompFix) (<1:8) Critical Care Time Critical Care Time: Yes Total Critical Care Time: 35 (CPR) Disposition Clinical Impression: Respiratory failure Disposition: Preliminary Cause of : Respiratory failure
--- NOTE | 2016-12-04 09:13 | PN ---
DATE OF SERVICE: 12/03/2016 This is a 71-year-old gentleman who was admitted with COPD acute exacerbation, is being closely monitored. No chest pain or palpitation. No fever. On exam, alert and oriented x3. Pulse is 114, blood pressure 150/91, respirations 22, temperature 97 degrees, pulse ox 94% on 3 L. HEENT: Conjunctivae normal. NECK: No jugular venous distension. CARDIOVASCULAR SYSTEM: S1, S2, muffled. RESPIRATORY: Breath sounds diminished at the bases, bilateral scattered rhonchi, no crackles. Abdomen is soft, nontender. EXTREMITIES: Legs no edema, no swelling. NERVOUS SYSTEM: No focal deficits. Labs are WBC is 10.5, hemoglobin is 9.2, sodium 147. ASSESSMENT: 1. Chronic obstructive pulmonary disease acute exacerbation, with acute hypoxic respiratory failure with bilateral pneumonia, left more than the right with the right upper lobe and superior segment of the right lower lobe, possibly gram-negative. 2. History of lung cancer, squamous cell carcinoma of the lung with remission. Chemoradiation in 2012. 3. Possible sepsis, present on admission. 4. Diabetes mellitus type 2, uncontrolled. 5. Chronic kidney disease stage III secondary to diabetic nephropathy. 6. Hyperlipidemia. 7. Hypertension. 8. History of degenerative joint disease. 9. History of asbestos exposure. 10. Thrombocytopenia. 11. Anemia, normocytic. 12. Increased CO2. 13. FULL CODE. RECOMMENDATION: Recommend to continue with the current medication. Continue with the monitoring and symptomatic treatment. Closely follow with Dr. Dee. Continue with steroids and as well as bronchodilators. Dr. Dee is also considering hospice care per patient's request. Continue to monitor. Guarded prognosis. Further recommendations to follow. MTDD
--- NOTE | 2016-12-04 14:39 | DS ---
DATE OF ADMISSION: 11/21/2016 DATE OF DISCHARGE: 12/03/2016 PRIMARY CAUSE OF : Chronic obstructive pulmonary disease acute exacerbation. OTHER DIAGNOSES: 1. Chronic obstructive pulmonary disease acute exacerbation, acute hypoxic respiratory failure with bilateral pneumonia, left more than the right with right upper lobe of the right upper lobe, possibly gram-negative. 2. History of lung cancer squamous cell carcinoma of the lung with chemoradiation in 2012. 3. Possible sepsis, present on admission. 4. Diabetes mellitus type 2, uncontrolled. 5. Chronic kidney disease Stage III secondary to diabetic nephropathy. 6. Hyperlipidemia. 7. Hypertension. 8. History of degenerative joint disease . 9. History of asbestos exposures. 10. Thrombocytopenia. 11. Anemia, normocytic. 12. Increased carbon dioxide. 13. End stage chronic obstructive pulmonary disease. 14. FULL CODE. HISTORY OF PRESENT ILLNESS: This 71-year-old gentleman with a past medical history of multiple medical problems as mentioned earlier being followed by Dr. Dee in the outpatient admitted with COPD acute exacerbation. The patient sputum multiple complications as mentioned earlier. Patient treated with bronchodilators and steroids. The prognosis was extremely guarded and Dr. Dee suggested the possibility of hospice care but; however the patient's mobility was extremely limited with extreme shortness of breath. The patient suffered a cardiopulmonary arrest while in the Hospital and did not survive. The prognosis was extremely guarded throughout the hospitalization and Dr. Dee and Dr. Mcclellan followed the patient closely as well as Dr. Sandra. Please refer to the multiple consultations and progress notes for further details. CLAUD
== END 2016-12-03 23:20 | disposition expired | DRG 871 ==
LOC: 4MS4W 12:07 → 6ICU 11-25 11:21 → 5MS5E 11-28 22:13
PROVIDERS: ADMIT Internal Medicine Critical Care Medicine; ATTEND Internal Medicine Critical Care Medicine
PROC: 5A12012 Performance of Cardiac Output, Single, Manual (ICD-10-PCS; principal; 2016-12-03)
PROC: 5A2204Z Restoration of Cardiac Rhythm, Single (ICD-10-PCS; 2016-12-03)
DX: A41.9 Sepsis, unspecified organism (principal); J96.21 Acute and chronic respiratory failure with hypoxia; I47.2 Ventricular tachycardia; E87.2 Acidosis; J15.6 Pneumonia due to other Gram-negative bacteria; N18.3 Chronic kidney disease, stage 3 (moderate); D69.6 Thrombocytopenia, unspecified; J44.0 Chronic obstructive pulmonary disease with (acute) lower respiratory infection; Q60.0 Renal agenesis, unilateral; J96.22 Acute and chronic respiratory failure with hypercapnia; J44.1 Chronic obstructive pulmonary disease with (acute) exacerbation; J98.11 Atelectasis; A41.50 Gram-negative sepsis, unspecified; E11.21 Type 2 diabetes mellitus with diabetic nephropathy; R65.20 Severe sepsis without septic shock; E11.42 Type 2 diabetes mellitus with diabetic polyneuropathy; Z99.81 Dependence on supplemental oxygen; E11.65 Type 2 diabetes mellitus with hyperglycemia; E11.22 Type 2 diabetes mellitus with diabetic chronic kidney disease; T38.0X5A Adverse effect of glucocorticoids and synthetic analogues, initial encounter; I49.01 Ventricular fibrillation; I25.10 Atherosclerotic heart disease of native coronary artery without angina pectoris; I13.10 Hypertensive heart and chronic kidney disease without heart failure, with stage 1 through stage 4 chronic kidney disease, or unspecified chronic kidney disease; R91.1 Solitary pulmonary nodule; I46.9 Cardiac arrest, cause unspecified; M19.90 Unspecified osteoarthritis, unspecified site; R60.9 Edema, unspecified; R53.1 Weakness; D64.9 Anemia, unspecified; F41.9 Anxiety disorder, unspecified; F32.9 Major depressive disorder, single episode, unspecified; K21.9 Gastro-esophageal reflux disease without esophagitis; E78.5 Hyperlipidemia, unspecified; G89.29 Other chronic pain; M54.9 Dorsalgia, unspecified; Z87.01 Personal history of pneumonia (recurrent); Z91.013 Allergy to seafood; Z91.048 Other nonmedicinal substance allergy status; Z92.3 Personal history of irradiation; Z92.21 Personal history of antineoplastic chemotherapy; Z77.090 Contact with and (suspected) exposure to asbestos; Z98.49 Cataract extraction status, unspecified eye; Z98.1 Arthrodesis status; Z85.118 Personal history of other malignant neoplasm of bronchus and lung; Z79.2 Long term (current) use of antibiotics; Z79.84 Long term (current) use of oral hypoglycemic drugs; Z87.891 Personal history of nicotine dependence; Z96.643 Presence of artificial hip joint, bilateral; Z96.1 Presence of intraocular lens; Z96.653 Presence of artificial knee joint, bilateral; Z80.9 Family history of malignant neoplasm, unspecified; Z79.82 Long term (current) use of aspirin; Z79.52 Long term (current) use of systemic steroids; Z79.891 Long term (current) use of opiate analgesic; Z79.51 Long term (current) use of inhaled steroids; Z79.899 Other long term (current) drug therapy; Z95.5 Presence of coronary angioplasty implant and graft; Z96.89 Presence of other specified functional implants
CPT/HCPCS: 71010; 71020; 71275; 80048; 80053; 81003; 83036; 83605; 83735; 84100; 85025; 85027; 86003; 86606; 87040; 87070; 87086; 87205; 94640; 94660; 94760